=== PATIENT | female | born 1970 | race Caucasian/White ===

== ENCOUNTER 2017-03-09 10:25 | Emergency (ER) | payer MEDICAID, OTHER ==
[2017-03-09 10:40] VITALS: RESP 16
[2017-03-09 10:41] VITALS: BMI 24.7
[2017-03-09] MEDS ORDERED: Sodium Chloride 0.9% 1,000 ML IV STA (11:04)
--- NOTE | 2017-03-09 11:07 | ED PDOC ---
HPI: Abdomen Time Seen by Provider: 03/09/17 10:46 Chief Complaint (Nursing): Abdominal Pain Chief Complaint (Provider): Abdominal Pain History Per: Patient History/Exam Limitations: no limitations Onset/Duration Of Symptoms: Days Current Symptoms Are (Timing): Still Present Additional Complaint(s): 46 y/o female with a past medical history of breast cancer (4 years ago) who presents to the emergency department with a complaint of constant sharp abdominal pain, watery diarrhea (2 episodes) and chills since yesterday, 2016. Associated with greenish vomit (3 episodes) since 8am this morning. Denies radiation of abdominal pain elsewhere, nausea, blood in stool, fever, painful urination, shortness of breath, cough, or chest pain. PMD: Dr. Néstor TARIQ Past Medical History Reviewed: Historical Data, Nursing Documentation, Vital Signs Vital Signs: Last Vital Signs Temp 98.8 F 03/09/17 10:40 Pulse 79 03/09/17 10:40 Resp 16 03/09/17 10:40 BP 103/65 03/09/17 10:40 Pulse Ox 100 03/09/17 11:12 - Medical History PMH: Malignancy (breast CA 5 years ago) Other PMH: Breast Cancer (4 years ago) - Surgical History Other surgeries: Breast Surgery ([place]) - Family History Family History: States: Unknown Family Hx, Hypertension - Social History Current smoker - smoking cessation education provided: Yes Alcohol: None Drugs: Denies - Home Medications Home Medications: Ambulatory Orders Medication Instructions Recorded Amoxicillin 875 mg PO BID #20 tab 03/03/14 Azithromycin [Zithromax Z-Hussain] 250 mg PO DAILY #6 tab 03/23/14 Fluticasone Nasal [Flonase] 1 actuation NS BID #1 bottle 03/23/14 traMADol [Ultram] 50 mg PO Q8 PRN #20 tab 07/18/15 Ondansetron [Zofran Odt] 4 mg PO ASDIR PRN #20 odt 09/12/15 traMADol [Ultram] 50 mg PO TID PRN #15 tab 09/12/15 Famotidine [Pepcid] 20 mg PO BID #28 tab 03/09/17 Ondansetron [Zofran] 4 mg PO Q8H #9 tab 03/09/17 - Allergies Allergies/Adverse Reactions: Allergies Allergy/AdvReac Type Severity Reaction Status Date / Time No Known Allergies Allergy Verified 03/03/14 10:42 Review of Systems ROS Statement: Except As Marked, All Systems Reviewed And Found Negative Constitutional: Positive for: Chills. Negative for: Fever Cardiovascular: Negative for: Chest Pain Respiratory: Negative for: Cough, Shortness of Breath Gastrointestinal: Positive for: Vomiting (Green), Abdominal Pain, Diarrhea. Negative for: Nausea, Hematochezia Genitourinary Female: Negative for: Dysuria Physical Exam - Reviewed Nursing Documentation Reviewed: Yes Vital Signs Reviewed: Yes - Physical Exam Appears: Positive for: Non-toxic, No Acute Distress Head Exam: Positive for: ATRAUMATIC, NORMAL INSPECTION, NORMOCEPHALIC Skin: Positive for: Warm, Dry, Pallor Eye Exam: Positive for: Normal appearance Cardiovascular/Chest: Positive for: Regular Rate, Rhythm. Negative for: Murmur Respiratory: Positive for: Normal Breath Sounds. Negative for: Accessory Muscle Use, Respiratory Distress Gastrointestinal/Abdominal: Positive for: Soft, Tenderness (Epigastric region). Negative for: Normal Exam Back: Positive for: Normal Inspection. Negative for: L CVA Tenderness, R CVA Tenderness Extremity: Positive for: Normal ROM. Negative for: Pedal Edema Neurologic/Psych: Positive for: Alert, Oriented (x3) - Laboratory Results Result Diagrams: 03/09/17 11:30 03/09/17 11:30 Urine dip results: Negative for: Leukocyte Esterase, Blood, Nitrate - ECG O2 Sat by Pulse Oximetry: 100 (RA) Pulse Ox Interpretation: Normal - Progress Re-evaluation Time: 12:45 Condition: Re-examined, Improving,but remains with symptoms Medical Decision Making Medical Decision Making: Time: 11:03 Initial Impression: Abdominal Pain Initial Plan: --EKG --CMP --Lipase --Troponin I --Urine DIP & Preg --CBC w/ diff --Reevaluation Scribe Attestation: Documented by Adriana Rios, acting as a scribe for Melissa Pfeiffer MD. Provider Scribe Attestation: All medical record entries made by the Scribe were at my direction and personally dictated by me. I have reviewed the chart and agree that the record accurately reflects my personal performance of the history, physical exam, medical decision making, and the department course for this patient. I have also personally directed, reviewed, and agree with the discharge instructions and disposition. Disposition - Clinical Impression Clinical Impression: Abdominal discomfort - Patient ED Disposition Is Patient to be Admitted: No Doctor Will See Patient In The: Office Counseled Patient/Family Regarding: Diagnosis, Need For Followup, Rx Given - Disposition Referrals: Yefri Palm MD [Family Provider] - [facility] [Outside] Disposition: Routine/Home Disposition Time: 12:45 Condition: IMPROVED Prescriptions: Famotidine [Pepcid] 20 mg PO BID #28 tab Ondansetron [Zofran] 4 mg PO Q8H #9 tab Instructions: Abdominal Pain (ED) Forms: [facility] ([place]ian) - POA Present On Arrival: None
[2017-03-09 11:59] LABS: BASO # 0.1 K/uL (0.0-0.2); BASO % 0.7 % (0.0-2.0); EOS # 0.3 K/uL (0.0-0.7); EOS % 2.4 % (0.0-4.0); HEMATOCRIT 38.8 % (34.0-47.0); LYMPH # 1.8 K/uL (1.0-4.3); LYMPH % 14.3 % (20.0-40.0); MEAN CELL VOLUME 85.6 fl (81.0-99.0); MEAN CORPUSCULAR HEMOGLOBIN 27.5 pg (27.0-31.0); MEAN CORPUSCULAR HGB CONC 32.2 g/dL (33.0-37.0); MEAN PLATELET VOLUME 8.6 fl (7.2-11.7); MONO # 0.9 K/uL (0.0-0.8); MONO % 7.3 % (0.0-10.0); NEUT # 9.2 K/uL (1.8-7.0); NEUT % 75.3 % (50.0-75.0); NRBC % 0.1 % (0.0-0.0); RED CELL DISTRIBUTION WIDTH 17.5 % (11.5-14.5); WHITE BLOOD COUNT 12.2 K/uL (4.8-10.8)
[2017-03-09 12:02] LABS: ALB/GLOB RATIO 1.3 (1.0-2.1); ALKALINE PHOSPHATASE 54 U/L (38-126); ALT/SGPT 24 U/L (9-52); AST/SGOT 27 U/L (14-36); BILIRUBIN,TOTAL 0.6 mg/dl (0.2-1.3); BLOOD UREA NITROGEN 10 mg/dl (7-17); CALCIUM 9.4 mg/dL (8.4-10.2); CARBON DIOXIDE 25 mmol/L (22-30); CHLORIDE 104 mmol/L (98-107); GFR AFRICAN-AMERICAN > 60; GLUCOSE,RANDOM 85 mg/dL (65-105); LIPASE 77 U/L (23-300); POTASSIUM 3.7 MMOL/L (3.6-5.0); SODIUM 142 mmol/l (132-148); TOTAL PROTEIN 7.6 G/DL (6.3-8.2)
[2017-03-09 13:20] VITALS: BP 99/62; PULSE 62; TEMP 98.3; O2SAT 98
--- NOTE | 2017-03-10 11:39 | CARD ---
APPROVED REPORT EKG Measurement Heart [id number] <Conclusion> Normal sinus rhythm T wave abnormality, consider inferior ischemia T wave abnormality, consider anterolateral ischemia Abnormal ECG
== END 2017-03-09 13:18 | disposition home or self-care (01) ==
LOC: H.ER 10:25
DX: R10.9 Unspecified abdominal pain (principal); Z85.3 Personal history of malignant neoplasm of breast
CPT/HCPCS: 80053; 81025; 83690; 84484; 85025; 93005; 96361; 96374; 96375; 99284; J2405; J7040

== ENCOUNTER 2017-04-27 18:40 | Emergency (ER) | payer OTHER ==
[2017-04-27 18:40] VITALS: BMI 24.7
[2017-04-27 18:52] VITALS: PULSE 94; RESP 18; TEMP 98.1; O2SAT 100
--- NOTE | 2017-04-27 19:50 | ED PDOC ---
HPI: Female Pain Time Seen by Provider: 04/27/17 18:54 Chief Complaint (Nursing): Female Genitourinary Chief Complaint (Provider): hematurie History Per: Patient History/Exam Limitations: no limitations Onset/Duration Of Symptoms: Days (2), Intermittent Episodes Quality Of Discomfort: "Pain" Associated Symptoms: Fever, Chills, Urinary Symptoms. denies: Nausea, Vomiting , Diarrhea, Loss Of Appetite, Constipation Past Medical History Reviewed: Historical Data, Nursing Documentation, Vital Signs Vital Signs: Last Vital Signs Temp 98.1 F 04/27/17 18:49 Pulse 94 H 04/27/17 18:49 Resp 18 04/27/17 18:49 BP 104/72 04/27/17 18:49 Pulse Ox 100 04/27/17 18:49 - Medical History PMH: No Chronic Diseases, Malignancy (breast CA 5 years ago) - Family History Family History: States: Hypertension - Social History Current smoker - smoking cessation education provided: Yes Alcohol: None - Home Medications Home Medications: Ambulatory Orders Medication Instructions Recorded Amoxicillin 875 mg PO BID #20 tab 03/03/14 Azithromycin [Zithromax Z-Hussain] 250 mg PO DAILY #6 tab 03/23/14 Fluticasone Nasal [Flonase] 1 actuation NS BID #1 bottle 03/23/14 traMADol [Ultram] 50 mg PO Q8 PRN #20 tab 07/18/15 Ondansetron [Zofran Odt] 4 mg PO ASDIR PRN #20 odt 09/12/15 traMADol [Ultram] 50 mg PO TID PRN #15 tab 09/12/15 Famotidine [Pepcid] 20 mg PO BID #28 tab 03/09/17 Ondansetron [Zofran] 4 mg PO Q8H #9 tab 03/09/17 Ibuprofen [Motrin Tab] 600 mg PO Q8 PRN #30 tab 04/27/17 Nitrofurantoin Macrocrystals 1 cap PO BID #14 cap 04/27/17 [Macrobid] Phenazopyridine [Phenazopyridine 200 mg PO BID PRN #20 tab 04/27/17 HCl] - Allergies Allergies/Adverse Reactions: Allergies Allergy/AdvReac Type Severity Reaction Status Date / Time No Known Allergies Allergy Verified 03/03/14 10:42 Review of Systems ROS Statement: Except As Marked, All Systems Reviewed And Found Negative (and as per HPI) Constitutional: Positive for: Chills Gastrointestinal: Positive for: Abdominal Pain. Negative for: Nausea, Vomiting , Diarrhea Genitourinary Female: Positive for: Dysuria, Frequency, Hematuria, Pelvic Pain Musculoskeletal: Negative for: Back Pain Physical Exam - Reviewed Nursing Documentation Reviewed: Yes Vital Signs Reviewed: Yes - Physical Exam Appears: Positive for: Well, No Acute Distress Head Exam: Positive for: ATRAUMATIC, NORMOCEPHALIC Skin: Positive for: Warm, Dry Eye Exam: Positive for: EOMI, PERRL Neck: Positive for: Painless ROM, Supple Cardiovascular/Chest: Positive for: Regular Rate, Rhythm, Chest Non Tender. Negative for: Murmur Respiratory: Positive for: Normal Breath Sounds. Negative for: Respiratory Distress Gastrointestinal/Abdominal: Positive for: Soft. Negative for: Tenderness Back: Positive for: Normal Inspection. Negative for: L CVA Tenderness, R CVA Tenderness, Decreased ROM Extremity: Positive for: Normal ROM. Negative for: Deformity Lymphatic: Negative for: Adenopathy Neurologic/Psych: Positive for: Alert. Negative for: Motor/Sensory Deficits - ECG O2 Sat by Pulse Oximetry: 100 Pulse Ox Interpretation: Normal - Progress ED Course And Treament: EXAM: CT Abdomen and Pelvis Without Intravenous Contrast EXAM DATE/TIME: 04/27/2017 7:38 PM CLINICAL HISTORY: 46 years old, female; Signs and symptoms; Other: Lower abd pain hematuria; Prior surgery; Surgery date: 6+ months; Surgery type: HX rt breast ca 5 yrs ago. Rt breast tumor removal; Patient HX: HX rt breast ca 5 yrs ago. Rt breast tumor removal. Hematuia. Lower abd pain; Additional info: Hematuria pain TECHNIQUE: Axial computed tomography images of the abdomen and pelvis without intravenous contrast. All CT scans at this facility use one or more dose reduction techniques, viz.: automated exposure control; ma/kV adjustment per patient size (including targeted exams where dose is matched to indication; i.e. head); or iterative reconstruction technique. Coronal and sagittal reformatted images were created and reviewed. COMPARISON: Prior CT abdomen and pelvis of 2013-10-07 FINDINGS: LIMITATIONS: Mild streak/motion artifact. LOWER THORAX: No infiltrate seen in the lung bases. ABDOMEN: LIVER: No acute abnormality of the liver identified. GALLBLADDER AND BILE DUCTS: No CT evidence of acute cholecystitis. No evidence of significant biliary ductal dilatation. PANCREAS: No CT evidence of acute pancreatitis. SPLEEN: No acute abnormality of the spleen identified. ADRENALS: No acute abnormality of the adrenal glands identified. KIDNEYS AND URETERS:No acute abnormality of the kidneys seen. No renal stones, hydronephrosis, or hydroureter seen. STOMACH AND BOWEL: Colonic diverticulosis, with no evidence of acute diverticulitis. Retained stool noted throughout the colon. Mild gastric dilatation, with debris/retained food material throughout the lumen of the stomach. Otherwise, no significant abnormality of the bowel is identified. No evidence of bowel obstruction. APPENDIX: Appendix is seen, and is within normal limits in appearance. PELVIS: BLADDER: Bladder findings suspicious for cystitis. There is infiltration of the fat adjacent to the bladder diffusely. There is mild thickening of the bladder wall. No evidence of bladder calculi or air in the bladder.. REPRODUCTIVE: Mild uterine enlargement, which can be secondary to fibroids. No evidence of large adnexal masses. ABDOMEN and PELVIS: INTRAPERITONEAL SPACE: No evidence of free intraperitoneal air or fluid. BONES/JOINTS: No acute fractures or other acute bony abnormality noted. SOFT TISSUES: No acute abnormality of the visualized soft tissues is seen. VASCULATURE: No evidence of abdominal aortic aneurysm. No evidence of periaortic hemorrhage. LYMPH NODES: No evidence of diffuse lymphadenopathy. IMPRESSION: - Bladder findings suspicious for cystitis. Recommend clinical correlation. - Otherwise, no evidence of significant acute process on this unenhanced exam. There is no evidence of nephrolithiasis or obstructive uropathy. - See above for remaining findings. Thank you for allowing us to participate in the care of your patient. Dictated and Authenticated by: Vicki Valenzuela MD 04/27/2017 10:22 PM Eastern Time ([place] & [place]) Disposition - Clinical Impression Clinical Impression: Cystitis Counseled Patient/Family Regarding: Studies Performed, Diagnosis, Need For Followup, Rx Given - Disposition Referrals: Yefri Palm MD [Family Provider] - Disposition: Routine/Home Disposition Time: 22:00 Condition: STABLE Prescriptions: Ibuprofen [Motrin Tab] 600 mg PO Q8 PRN #30 tab PRN Reason: Pain, Moderate (4-7) Nitrofurantoin Macrocrystals [Macrobid] 1 cap PO BID #14 cap Phenazopyridine [Phenazopyridine HCl] 200 mg PO BID PRN #20 tab PRN Reason: pain with urination Instructions: Urinary Tract Infection in Women (ED), Acute Hematuria (ED)
[2017-04-27 19:58] LABS: RBC URINE 432 /hpf (0-3); URINE BILIRUBIN NEGATIVE (NEGATIVE); URINE BLOOD LARGE (NEGATIVE); URINE COLOR YELLOW (YELLOW); URINE GLUCOSE (UA) NEG (Normal); URINE KETONE NEGATIVE (NEGATIVE); URINE LEUKOCYTE ESTERASE MOD Leu/uL (Negative); URINE PROTEIN 100 mg/dL (NEGATIVE); WBC URINE 199 /hpf (0-5)
--- NOTE | 2017-04-27 22:22 | CT ---
EXAM: CT Abdomen and Pelvis Without Intravenous Contrast EXAM DATE/TIME: 04/27/2017 7:38 PM CLINICAL HISTORY: 46 years old, female; Signs and symptoms; Other: Lower abd pain hematuria; Prior surgery; Surgery date: 6+ months; Surgery type: HX rt breast ca 5 yrs ago. Rt breast tumor removal; Patient HX: HX rt breast ca 5 yrs ago. Rt breast tumor removal. Hematuia. Lower abd pain; Additional info: Hematuria pain TECHNIQUE: Axial computed tomography images of the abdomen and pelvis without intravenous contrast. All CT scans at this facility use one or more dose reduction techniques, viz.: automated exposure control; ma/kV adjustment per patient size (including targeted exams where dose is matched to indication; i.e. head); or iterative reconstruction technique. Coronal and sagittal reformatted images were created and reviewed. COMPARISON: Prior CT abdomen and pelvis of 2013-10-07 FINDINGS: LIMITATIONS: Mild streak/motion artifact. LOWER THORAX: No infiltrate seen in the lung bases. ABDOMEN: LIVER: No acute abnormality of the liver identified. GALLBLADDER AND BILE DUCTS: No CT evidence of acute cholecystitis. No evidence of significant biliary ductal dilatation. PANCREAS: No CT evidence of acute pancreatitis. SPLEEN: No acute abnormality of the spleen identified. ADRENALS: No acute abnormality of the adrenal glands identified. KIDNEYS AND URETERS:No acute abnormality of the kidneys seen. No renal stones, hydronephrosis, or hydroureter seen. STOMACH AND BOWEL: Colonic diverticulosis, with no evidence of acute diverticulitis. Retained stool noted throughout the colon. Mild gastric dilatation, with debris/retained food material throughout the lumen of the stomach. Otherwise, no significant abnormality of the bowel is identified. No evidence of bowel obstruction. APPENDIX: Appendix is seen, and is within normal limits in appearance. PELVIS: BLADDER: Bladder findings suspicious for cystitis. There is infiltration of the fat adjacent to the bladder diffusely. There is mild thickening of the bladder wall. No evidence of bladder calculi or air in the bladder.. REPRODUCTIVE: Mild uterine enlargement, which can be secondary to fibroids. No evidence of large adnexal masses. ABDOMEN and PELVIS: INTRAPERITONEAL SPACE: No evidence of free intraperitoneal air or fluid. BONES/JOINTS: No acute fractures or other acute bony abnormality noted. SOFT TISSUES: No acute abnormality of the visualized soft tissues is seen. VASCULATURE: No evidence of abdominal aortic aneurysm. No evidence of periaortic hemorrhage. LYMPH NODES: No evidence of diffuse lymphadenopathy. IMPRESSION: - Bladder findings suspicious for cystitis. Recommend clinical correlation. - Otherwise, no evidence of significant acute process on this unenhanced exam. There is no evidence of nephrolithiasis or obstructive uropathy. - See above for remaining findings.
[2017-04-27 23:00] VITALS: BP 108/74
== END 2017-04-27 23:01 | disposition home or self-care (01) ==
LOC: H.ER 18:40
DX: N30.91 Cystitis, unspecified with hematuria (principal); Z85.3 Personal history of malignant neoplasm of breast
CPT/HCPCS: 74176; 81003; 81025; 87086; 96372; 99282; J1885

== ENCOUNTER 2017-07-24 23:57 | Inpatient (IN) | payer OTHER ==
[2017-07-24 23:57] VITALS: BMI 24.7
--- NOTE | 2017-07-25 00:20 | ED PDOC ---
HPI:STROKE - Time Time: 00:04 - Historian Historian: Patient, EMS - Chief Complaint Chief Complaint: Arm weakness (right), Leg weakness (right) - Onset Date: 07/24/17 Time: 23:20 - Timing Timing: Currently Symptomatic - Location Location: None Locate right:: Upper extremity, Lower extremity - Severity of pain Maximum severity:: None - Notes: Notes:: 46 year old female brought in by EMS presents to ED with complaints of headache and extremity weakness and has a past medical history of breast cancer (not active). Notes headache x2 hours and RLE weakness more profound than RUE. (-) nausea, vomiting, vision changes, chest pain, or SOB. PCP: Yefri Palm NIHSS Stroke Scale - Date/Time Evaluation Performed Date Performed: 07/25/17 Time Performed: 00:04 When Was NIHSS Performed: Code Stroke - How Severe is the Stroke Level of Consciousness: 0=Alert LOC to Questions: 0=Both comments correct LOC to commands: 0=Obeys both correctly Best Gaze: 0=Normal Visual: 0=No visual loss Facial: 0=Normal Motor Arm - Left: 0=No drift Motor Arm - Right: 3=No effort against gravity (falls immediately) Motor Leg - Left: 0=No drift Motor Leg - Right: 4=No movement Limb Ataxia: 1=Present Upper or Lower Sensory: 0=Normal Best Language: 0=No aphasia Dysarthia: 0=Normal articulation Extinction & Inattention (Neglect): 0=Normal, no object Score: 8 rTPA Inclusion/Exclusion - Refusal of Treatment Patient Refused Treatment: No - Inclusion Criteria for Altepase Patient is 18 years or Older: Yes The Clinical Diagnosis of Ischemic Stroke That is Causing a Potentially Disabling Neurological Deficit: No Time of Onset is Well Established to be Less Than 270 Minute Before Treatment Would Begin: Yes Risk/Benefit Discussed With Patient/Family Member Present: No Past Medical History Reviewed: Historical Data, Nursing Documentation, Vital Signs Vital Signs: Last Vital Signs Temp 98.1 F 07/25/17 00:00 Pulse 97 H 07/25/17 00:00 Resp 17 07/25/17 00:00 BP 127/75 07/25/17 00:00 Pulse Ox 99 07/25/17 00:00 - Medical History PMH: Malignancy (breast cancer 5 years ago, not active currently) - Family History Family History: States: Hypertension - Living Arrangements Living Arrangements: With Family - Home Medications Home Medications: Ambulatory Orders Medication Instructions Recorded No Known Home Med 07/25/17 - Allergies Allergies/Adverse Reactions: Allergies Allergy/AdvReac Type Severity Reaction Status Date / Time No Known Allergies Allergy Verified 07/25/17 00:03 Review of Systems ROS Statement: Except As Marked, All Systems Reviewed And Found Negative Eyes: Negative for: Vision Change Cardiovascular: Negative for: Chest Pain Respiratory: Negative for: Shortness of Breath Gastrointestinal: Negative for: Nausea, Vomiting Neurological: Positive for: Weakness (right upper and lower extremity weakness. Right lower extremity weakness more profound), Headache Physical Exam - Reviewed Nursing Documentation Reviewed: Yes Vital Signs Reviewed: Yes - Physical Exam Appears: Positive for: No Acute Distress (comfortable, maintaining airway) Head Exam: Positive for: ATRAUMATIC, NORMOCEPHALIC Skin: Positive for: Normal Color, Warm, Dry Eye Exam: Positive for: Normal appearance, EOMI, PERRL ENT: Positive for: Normal ENT Inspection Neck: Positive for: Normal, Painless ROM, Supple Cardiovascular/Chest: Positive for: Regular Rate, Rhythm. Negative for: Murmur Respiratory: Positive for: Normal Breath Sounds. Negative for: Respiratory Distress Gastrointestinal/Abdominal: Positive for: Normal Exam, Soft. Negative for: Tenderness Back: Positive for: Normal Inspection Extremity: Negative for: Deformity Neurologic/Psych: Positive for: Alert, office equipment technician II-XII (intact), Oriented, Motor/ Sensory Deficits (2/5 strength to RUE, 0/5 strength to RLE. Sensation intact. No field cut or visual deficits) - Laboratory Results Result Diagrams: 07/25/17 01:13 07/25/17 01:13 - ECG O2 Sat by Pulse Oximetry: 99 (RA) Pulse Ox Interpretation: Normal - Core Measure Core Measure Indicators: Code Stroke - Critical Care Total Time (In Min): 60 Medical Decision Making Medical Decision Makin Code Stroke paged overhead. Initial impression: cerebrovascular accident v intracerebral hemorrhage Initial plan: * T&S * CT HEAD * EKG * Labs * Hemoglobin A1V * Lipid panel * Trop I * PTT/PT * CXR 0010 Intracere[address] hemorrhage seen on CT HEAD. Possible metastasis from breast cancer with hemorrhagic conversion. Patient stable at this time. Blood pressure normal. 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 [address] Bonner, who states no acute interventional care at this time. Recommends Decadron and MRI. Will see patient as a consult. * Admit inpatient ICU to Dr. Negron [address] Negron, who accepts patient to ICU. * MRI BRAIN w CONTRAST 0112 CTFINDINGS: Brain: Within the superior left frontal lobe, there is a hyperdense acute hematoma measuring approximately 3.4 x 2.2 cm, with surrounding edema. Within the right temporoparietal region, there is a 1.6 x 1.0 cm hyperdense mass. It is indeterminate if this is intra-or extra- axial. Due to the increase in density, a hemorrhagic component is considered. Midline shift: There is minimal midline shift to the right of approximately 2 mm. Ventricles: No ventriculomegaly. Bones/joints: The calvarium demonstrates no evidence for a depressed fracture. Soft tissues: No acute abnormality. Sinuses: Mucous retention cysts or polyps are identified within the left maxillary sinus and left sphenoid sinus. Mastoid air cells: No mastoid effusion. IMPRESSION: 1. Within the superior left frontal lobe, there is a hyperdense acute hematoma measuring approximately 3.4 x 2.2 cm, with surrounding edema. A follow-up CT in 12-24 hours is recommended. 2. Within the right temporoparietal region, there is a 1.6 x 1.0 cm hyperdense mass. It is indeterminate if this is intra-or extra-axial. Due to the increase in density, a hemorrhagic component is considered. This can be further evaluated with an MRI with/without contrast. 3. There is minimal midline shift to the right of approximately 2 mm. 4. Paranasal sinus disease is noted above. Addendum created by Jaiden Arthur MD on 07/25/2017 1:18 AM Eastern Time ([place] & [place]) THIS REPORT CONTAINS FINDINGS THAT MAY BE CRITICAL TO PATIENT CARE. The findings were verbally communicated via telephone conference with Fotser Chaudhary at 1:18 AM EST on 07/25/2017. The findings were acknowledged and understood. Scribe Attestation: Documented by Asuncion Cain acting as a scribe for Foster Chaudhary MD. Scribe Attestation: All medical record entries made by the Scribe were at my direction and personally dictated by me. I have reviewed the chart and agree that the record accurately reflects my personal performance of the history, physical exam, medical decision making, and the department course for this patient. I have also personally directed, reviewed, and agree with the discharge instructions and disposition. Disposition - Clinical Impression Clinical Impression: Intracranial hemorrhage - Patient ED Disposition Is Patient to be Admitted: Yes - Disposition Disposition Time: 00:30 Condition: CRITICAL - POA Core Measure Indicators: Code Stroke
[2017-07-25] MEDS ORDERED: Dexamethasone 10 MG in Sodium Chloride 0.9% 50 ML IV ONE (00:29)
--- NOTE | 2017-07-25 00:52 | CP.PCM.HP ---
History of Present Illness - History of Present Illness History of Present Illness: PMD: Yefri Palm Chief Complaint: Left side weakness The patient was seen and examined in theED with her family present HPI: 46 years old female with hx of Breast cancer s/p Chemotherapy and radiotherapy, comes with a 2 hours hx of headache associated with weakness of the right upper and lower extremities. No dizziness, no fever, SOB, diaphoresis , no chest Pain. In the Ed the Speech was clear and the patient had good mentation. Code Stroke called in the ED.NIHSS was 8 in the ED. PMH: Breast Cancer Dx 7years ago and treated with Chemotherapy and Radiotherapy , Cholelithiasis PSH: Right lumpectomy and and right axillary lymph nodes resection, SH: Light smoker; No illegal drug use; No ETOH use; Live with family FH: States: No Family hx Allergies: NKDA Medications: Reviewed Present on Admission - Present on Admission Any Indicators Present on Admission: No History of DVT/PE: No History of Uncontrolled Diabetes: No Urinary Catheter: No Decubitus Ulcer Present: No Review of Systems - Constitutional Constitutional: Headache, Weakness. absent: Fatigue, Fever, Frequent Falls, Lethargy - EENT Eyes: Requires Corrective Lenses. absent: Decreased Night Vision, Diplopia, Photophobia, Sees Flashes Ears: absent: Decreased Hearing, Ear Discharge, Ear Pain, Tinnitus Nose/Mouth/Throat: absent: Epistaxis, Nasal Congestion, Nasal Obstruction, Sinus Pain, Sinus Pressure - Cardiovascular Cardiovascular: absent: Chest Pain, Dyspnea, Edema - Respiratory Respiratory: absent: Cough, Dyspnea, Wheezing, Stridor - Gastrointestinal Gastrointestinal: absent: Abdominal Pain, Constipation, Diarrhea, Nausea, Vomiting - Genitourinary Genitourinary: absent: Dysuria, Flank Pain, Hematuria, Urinary Frequency - Musculoskeletal Musculoskeletal: absent: Arthralgias, Back Pain, Myalgias, Neck Pain - Integumentary Integumentary: absent: Pruritus, Rash, Skin Ulcer, Sores, Striae, Swelling - Neurological Neurological: Focal Weakness, Headaches, Weakness. absent: Confusion - Psychiatric Psychiatric: absent: Anxiety, Depression, Panic Attacks - Endocrine Endocrine: absent: Palpitations, Polydipsia, Polyphagia, Polyuria - Hematologic/Lymphatic Hematologic: absent: Easy Bleeding, Easy Bruising Past Patient History - Past Medical History & Family History Past Medical History?: Yes - Past Social History Smoking Status: Light Smoker < 10 Cigarettes Daily Chewing Tobacco Use: No Cigar Use: No Alcohol: None Drugs: Denies Home Situation {Lives}: With Family - CARDIAC Hx Cardiac Disorders: No - NEUROLOGICAL Hx Neurological Disorder: No - HEENT Hx HEENT Problems: No - RENAL Hx Chronic Kidney Disease: No - HEMATOLOGICAL/ONCOLOGICAL Hx Cancer: Yes (right breast) - MUSCULOSKELETAL/RHEUMATOLOGICAL Hx Musculoskeletal Disorders: No - GASTROINTESTINAL Hx Gastrointestinal Disorders: No - GENITOURINARY/GYNECOLOGICAL Hx Genitourinary Disorders: No Other/Comment: RIGHT BREAST CANCER - PSYCHIATRIC Hx Psychophysiologic Disorder: No Hx Substance Use: No - SURGICAL HISTORY Hx Surgeries: Yes Hx Mastectomy: Yes (right) - ANESTHESIA Hx Anesthesia: Yes Hx Anesthesia Reactions: No Hx Malignant Hyperthermia: No Meds Allergies/Adverse Reactions: Allergies Allergy/AdvReac Type Severity Reaction Status Date / Time No Known Allergies Allergy Verified 07/25/17 00:03 Physical Exam - Constitutional Appears: No Acute Distress - Head Exam Head Exam: ATRAUMATIC, NORMAL INSPECTION, NORMOCEPHALIC - Eye Exam Eye Exam: EOMI, Normal appearance Pupil Exam: NORMAL ACCOMODATION, PERRL - ENT Exam ENT Exam: Mucous Membranes Moist, Normal Exam, Normal External Ear Exam, Normal Oropharynx - Neck Exam Neck exam: Positive for: Full Rom, Normal Inspection. Negative for: Lymphadenopathy, Tenderness - Respiratory Exam Respiratory Exam: Clear to Auscultation Bilateral. absent: Rales, Rhonchi, Wheezes - Cardiovascular Exam Cardiovascular Exam: REGULAR RHYTHM, RRR, +S1, +S2. absent: Gallop, JVD - GI/Abdominal Exam GI & Abdominal Exam: Normal Bowel Sounds, Soft. absent: Mass, Organomegaly, Tenderness - Rectal Exam Rectal Exam: Deferred - Extremities Exam Extremities exam: Positive for: normal inspection. Negative for: calf tenderness, joint swelling, pedal edema - Back Exam Back exam: NORMAL INSPECTION. absent: CVA tenderness (L), CVA tenderness (R) - Neurological Exam Additional comments: Awake alert, oriented, clear speech, no facial droop,Motor strength at the left upper extremity 5/5 and at the right upper extremity 3/5/ Motor strength at the right lower extremity 0/5 and the left lower extremity 5/5 - Psychiatric Exam Psychiatric exam: Normal Affect, Normal Mood - Skin Skin Exam: Dry, Intact, Normal Color, Warm Results - Vital Signs Recent Vital Signs: Last Vital Signs Temp 98.1 F 07/25/17 00:00 Pulse 97 H 07/25/17 00:00 Resp 17 07/25/17 00:00 BP 127/75 07/25/17 00:00 Pulse Ox 99 07/25/17 00:40 - Labs Result Diagrams: 07/25/17 01:13 07/25/17 01:13 - Imaging and Cardiology CT scan - head Status: Image reviewed by me, Report reviewed by me Additional comment: EXAM: CT Head Without Intravenous Contrast EXAM DATE/TIME: 07/25/2017 12:07 AM FINDINGS: Brain: Within the superior left frontal lobe, there is a hyperdense acute hematoma measuring approximately 3.4 x 2.2 cm, with surrounding edema. Within the right temporoparietal region, there is a 1.6 x 1.0 cm hyperdense mass. It is indeterminate if this is intra-or extra- axial. Due to the increase in density, a hemorrhagic component is considered. Midline shift: There is minimal midline shift to the right of approximately 2 mm. Ventricles: No ventriculomegaly. Bones/joints: The calvarium demonstrates no evidence for a depressed fracture. Soft tissues: No acute abnormality. Sinuses: Mucous retention cysts or polyps are identified within the left maxillary sinus and left sphenoid sinus. Mastoid air cells: No mastoid effusion. IMPRESSION: 1. Within the superior left frontal lobe, there is a hyperdense acute hematoma measuring approximately 3.4 x 2.2 cm, with surrounding edema. A follow-up CT in 12-24 hours is recommended. 2. Within the right temporoparietal region, there is a 1.6 x 1.0 cm hyperdense mass. It is indeterminate if this is intra-or extra-axial. Due to the increase in density, a hemorrhagic component is considered. This can be further evaluated with an MRI with/without contrast. 3. There is minimal midline shift to the right of approximately 2 mm. 4. Paranasal sinus disease is noted above. Assessment & Plan - Assessment and Plan (Free Text) Assessment: #. Acute CVA with Intracraneal Hemorrhage #. Hypokalemia #. Hypoglycemia #. Leukocytosis #. hx Of Breast Ca Plan: 46 years old female with hx of Breast cancer s/p Chemotherapy and radiotherapy, comes with a 2 hours hx of headache associated with weakness of the right upper and lower extremities. Code Stroke called in the ED.NIHSS was 8 in the ED. #. Acute CVA with Intracraneal Hemorrhage - Consult Dr Bedoya neuro surgeon - Consult Dr Sena neurologist - Neuro checks - Repeat CT head without contrast in 12 hours - Mannitol - Dexamethasone #. Hypokalemia - replace in IV fluids with KCL - Follow electrolytes #. Hypoglycemia - IV Fluid with Dextrose - follow Blood glucose #. Leukocytosis rective - follow WBC #. hx Of Breast Ca treated -CT head with contrast to evaluate for neoplasm #. Stress ulcer Prophylaxis with Pepcid #. DVT Prophylaxis with SCD #> Code Status: Full - Date & Time Date: 07/25/17 Time: 00:52
[2017-07-25 01:17] LABS: BASO # 0.2 K/uL (0.0-0.2); BASO % 1.2 % (0.0-2.0); EOS % 0.1 % (0.0-4.0); HEMOGLOBIN 11.3 g/dL (12.0-16.0); LYMPH % 8.3 % (20.0-40.0); MEAN CELL VOLUME 82.4 fl (81.0-99.0); MEAN CORPUSCULAR HGB CONC 31.5 g/dL (33.0-37.0); MEAN PLATELET VOLUME 8.7 fl (7.2-11.7); MONO # 0.6 K/uL (0.0-0.8); MONO % 4.8 % (0.0-10.0); NEUT # 10.8 K/uL (1.8-7.0); NEUT % 85.6 % (50.0-75.0); PLATELET COUNT 285 K/uL (130-400); RBC 4.37 Mil/uL (3.80-5.20); RED CELL DISTRIBUTION WIDTH 18.7 % (11.5-14.5); WHITE BLOOD COUNT 12.6 K/uL (4.8-10.8)
[2017-07-25 01:27] LABS: ALB/GLOB RATIO 1.2 (1.0-2.1); ALBUMIN 4.4 g/dL (3.5-5.0); ALT/SGPT 22 U/L (9-52); AST/SGOT 22 U/L (14-36); BLOOD UREA NITROGEN 14 mg/dl (7-17); CALCIUM 9.7 mg/dL (8.4-10.2); GFR AFRICAN-AMERICAN > 60; GFR NON-AFRICAN AMERICAN > 60; HDL CHOLESTEROL 59 MG/DL (30-70)
[2017-07-25 01:30] LABS: INR 1.1 (0.9-1.2); PROTHROMBIN TIME 11.7 Seconds (9.8-13.1)
[2017-07-25 01:38] LABS: LDL CHOLESTEROL 104 mg/dL (0-129)
[2017-07-25] MEDS ORDERED: Sodium Chloride 0.9% 50 ML IV ONE (02:44)
[2017-07-25] MEDS ORDERED: Iodixanol 320 MG/ML 100 ML BOTTLE IV ONE (02:45)
[2017-07-25 03:42] LABS: EOSINOPHIL 1 % (0-7); LYMPHOCYTE 8 % (20-50); MONOCYTE 1 % (0-10); NEUTROPHIL 90 % (42-75); PLATELET ESTIMATE NORMAL (NORMAL); TOTAL CELLS COUNTED 100
[2017-07-25 03:43] LABS: ANISOCYTOSIS SLIGHT; HYPOCHROMIC SLIGHT; OVALOCYTES SLIGHT
[2017-07-25 03:44] LABS: ACANTHOCYTES SLIGHT
[2017-07-25] MEDS ORDERED: Potassium Chl 40 mEq in D5-1/2 1,000 ML IV SCH (04:00)
[2017-07-25] MEDS ORDERED: Potassium Chloride 20 mEq ER Tab PO ONE (05:11)
[2017-07-25] MEDS: Mannitol 12.5 gm/50 ml Inj IV SCH ×3 (05:35→19:54)
[2017-07-25 07:53] LABS: BLOOD UREA NITROGEN 11 mg/dl (7-17); CALCIUM 9.2 mg/dL (8.4-10.2); GFR AFRICAN-AMERICAN > 60; GFR NON-AFRICAN AMERICAN > 60
[2017-07-25] MEDS ORDERED: Dexamethasone 10 MG in Dextrose 5% In Water 50 ML IV SCH (09:00)
--- NOTE | 2017-07-25 09:32 | CT ---
PROCEDURE: CT HEAD WITHOUT CONTRAST. HISTORY: R sided weakness since 10PM. History of right breast cancer 5 years ago COMPARISON: None available. TECHNIQUE: Axial computed tomography images were obtained through the head/brain without intravenous contrast. Radiation dose: Total exam DLP = 1058.04 mGy-cm. This CT exam was performed using one or more of the following dose reduction techniques: Automated exposure control, adjustment of the mA and/or kV according to patient size, and/or use of iterative reconstruction technique. FINDINGS: HEMORRHAGE: There is parenchymal acute hemorrhage versus hemorrhagic mass at the left superior parasagittal frontal lobe measures 3.7 centimeter in the largest AP diameter 2.3 centimeter in the largest transverse diameter. There is surrounding edema noted. BRAIN: There is a slightly high attenuation mass at the peripheral right parietal lobe versus less likely extra-axial mass measures 1.9 x 1.1 centimeter. The above-mentioned the parenchymal hemorrhage or hemorrhagic mass in the left frontal lobe and associated edema resulting in mass effect on the adjacent structure and 2 millimeter [id number] midline shift at the frontal region. VENTRICLES: Unremarkable. No hydrocephalus. CALVARIUM: Unremarkable. PARANASAL SINUSES: No significant inflammatory changes. MASTOID AIR CELLS: Unremarkable as visualized. No inflammatory changes. OTHER FINDINGS: None. IMPRESSION: Acute parenchymal hematoma versus hemorrhagic mass at the left superior frontal lobe adjacent to the midline noted. 1.7 x 1 centimeter hyperdense mass lesion at the peripheral right temporal parietal region. Given the patient's history of breast cancer the possibility of brain metastasis should be considered. Further assessment by enhanced CT or MRI is recommended. 2 millimeter [id number]-rr-[id number] midline shift seen at the frontal region. Preliminary report was submitted by [facility].
[2017-07-25 09:45] LABS: BASO # 0.1 K/uL (0.0-0.2); EOS % 0.1 % (0.0-4.0); HEMOGLOBIN 11.3 g/dL (12.0-16.0); LYMPH # 0.7 K/uL (1.0-4.3); MEAN CELL VOLUME 82.3 fl (81.0-99.0); MEAN CORPUSCULAR HEMOGLOBIN 25.8 pg (27.0-31.0); MEAN CORPUSCULAR HGB CONC 31.4 g/dL (33.0-37.0); MEAN PLATELET VOLUME 8.2 fl (7.2-11.7); MONO # 0.1 K/uL (0.0-0.8); MONO % 1.3 % (0.0-10.0); NEUT # 5.9 K/uL (1.8-7.0); NEUT % 87.6 % (50.0-75.0); NRBC % 0.1 % (0.0-0.0); RBC 4.38 Mil/uL (3.80-5.20); RED CELL DISTRIBUTION WIDTH 18.5 % (11.5-14.5); WHITE BLOOD COUNT 6.7 K/uL (4.8-10.8)
--- NOTE | 2017-07-25 10:48 | RAD ---
HISTORY: RLE weakness COMPARISON: Chest radiograph dated 11/04/2010 FINDINGS: LUNGS: No active pulmonary disease. PLEURA: No significant pleural effusion identified, no pneumothorax apparent. CARDIOVASCULAR: Normal. OSSEOUS STRUCTURES: Unchanged. VISUALIZED UPPER ABDOMEN: Normal. OTHER FINDINGS: Left internal jugular access chest port, unchanged. IMPRESSION: No active disease.
[2017-07-25] MEDS ORDERED: Gadodiamide 287 MG/ML VIAL (15ML) IV ONE (11:18)
--- NOTE | 2017-07-25 11:28 | CARD ---
APPROVED REPORT EKG Measurement Heart [id number] [place] [id number] <Conclusion> Normal sinus rhythm with sinus arrhythmia Nonspecific T wave abnormality Prolonged QT Abnormal ECG
--- NOTE | 2017-07-25 11:28 | CARD ---
APPROVED REPORT EKG Measurement Heart [id number] DC 150P71 [id number] <Conclusion> Normal sinus rhythm Nonspecific T wave abnormality Prolonged QT Abnormal ECG
--- NOTE | 2017-07-25 11:30 | MRI ---
APPROVED REPORT EKG Measurement Heart [id number] [place] 158P68 [id number] <Conclusion> Normal sinus rhythm Prolonged QT Abnormal ECG
--- NOTE | 2017-07-25 12:57 | CT ---
PROCEDURE: CT HEAD WITH CONTRAST HISTORY: intracraneal bleed COMPARISON: None available. TECHNIQUE: Axial computed tomography images were obtained through the head/brain with intravenous contrast. Contrast dose: 90 cc of Visipaque 3 2 Radiation dose: Total exam DLP = 851.8 mGy-cm. This CT exam was performed using one or more of the following dose reduction techniques: Automated exposure control, adjustment of the mA and/or kV according to patient size, and/or use of iterative reconstruction technique. FINDINGS: HEMORRHAGE: Again seen is parenchymal hemorrhage at the left parasagittal superior frontal lobe. The possibility of underlying hemorrhagic mass cannot be totally excluded in this exam. Mild mass effect and murc-ho-dphoe 2 millimeter shift at the frontal region is again noted. BRAIN: There is enhancing mass lesion at the peripheral right posterior frontal temporal lobe measures 15.5 millimeter in the longitudinal diameter and 13 millimeter in the transverse diameter highly suspicious for malignant neoplasm such as metastasis. No atrophy or chronic microvascular ischemic changes. VENTRICLES: Unremarkable. No hydrocephalus. CALVARIUM: Unremarkable. PARANASAL SINUSES: Unremarkable as visualized. No significant inflammatory changes. MASTOID AIR CELLS: Unremarkable as visualized. No mastoid effusion. OTHER FINDINGS: None. IMPRESSION: Re- demonstration of focal parenchymal hemorrhage at the left frontal lobe. The possibility of underlying hemorrhagic mass lesion again should be considered. Enhancing mass lesion at the peripheral right frontal temporal lobe suspicious for malignant neoplasm likely metastasis. No other enhancing mass lesion in the brain noted. Further assessment by MRI of the brain is suggested.
--- NOTE | 2017-07-25 14:50 | MRI ---
PROCEDURE: MRI BRAIN WITH AND WITHOUT CONTRAST HISTORY: icb COMPARISON: Unenhanced head CT 07/25/2017 follow-up by enhance head CT also performed 07/25/2017. TECHNIQUE: Multiplanar, multisequence MR images of the brain were obtained with and without intravenous contrast enhancement. FINDINGS: HEMORRHAGE: Within the left frontal vertex medially is again appreciated a moderate-sized intraparenchymal hemorrhage measuring 2.3 x 3.7 x 2.8 cm (transverse by anteroposterior by superoinferior dimensions) with approximate volume of 12.4 cc. Local mass effect is appreciated effacing the sulci at the left frontal vertex with the ventricular system remaining normal volume overall including the left lateral ventricle. There is no subfalcine herniation appreciable at this time and the basilar cisterns are widely patent. DWI: No evidence of an acute or early subacute infarction. BRAIN PARENCHYMA: Further, a small enhancing lesion is appreciated which appears dural based at the right temporal parietal junction posteriorly, measuring 1.6 x 1.8 x 1.4 cm. No local reactive changes are appreciated and there is no signal dephasing appreciated on the gradient echo axial series. Trace dephasing is appreciated in the echo planar series, borderline in the T2 axial series. Trace CSF is felt to be peripheral to this lesion and is likely reflective of a benign meningioma. Because no definitive dural enhancement is appreciable, and oligodendroglioma is difficult to completely exclude and follow-up contrast MRI is advised in 3-4 months. If there is prior brain imaging at perform this patient in the past, there is prior brain imaging which can be retrieved, then comparison may preclude the need for follow-up MRI. The remainder the brain parenchyma appears unremarkable. ENHANCEMENT: As above. VENTRICLES: Unremarkable. No hydrocephalus. CRANIUM: Unremarkable. ORBITS: Grossly unremarkable. PARANASAL SINUSES/MASTOIDS: Clear VASCULAR SYSTEM: Skull base flow voids intact. OTHER FINDINGS: None . IMPRESSION: 1. A moderate left frontal intraparenchymal hemorrhage is appreciated near the vertex measuring local mass effect without some fall seen or basilar herniation identified. Please see measurements above. Follow-up CT is advised. 2. 1.8 cm enhancing lesion is seen at the right temporoparietal junction posteriorly suspicious for a benign meningioma. Though it may be extra-axial, is difficult to completely exclude intraparenchymal lesion such is in an oligodendroglioma as discussed above the lack of meningeal enhancement. Follow-up MRI is advised in 3-4 months with a without contrast for further vigilance. If prior brain imaging is available and can be retrieved to demonstrate stability of this lesion, follow-up brain MRI may be precluded.
[2017-07-25] MEDS ORDERED: DiphenhydrAMINE 50 mg/ml Inj IVP STA (14:53)
[2017-07-25] MEDS ORDERED: methylPREDNISolone 125 MG in Sodium Chloride 0.9% 50 ML IVPB ONE (14:54)
--- NOTE | 2017-07-25 15:21 | CP.PCM.CON ---
History of Present Illness - History of Present Illness History of Present Illness: dictated rec f/u MRI in 2-3 weeks to evaluate poss underlying tumor Past Patient History - Past Medical History & Family History Past Medical History?: Yes - Past Social History Smoking Status: Light Smoker < 10 Cigarettes Daily Chewing Tobacco Use: No Cigar Use: No Alcohol: None Drugs: Denies Home Situation {Lives}: With Family - CARDIAC Hx Hypertension: Yes - PULMONARY Hx Respiratory Disorders: No - NEUROLOGICAL Hx Neurological Disorder: No - HEENT Hx HEENT Problems: No - RENAL Hx Chronic Kidney Disease: No - ENDOCRINE/METABOLIC Hx Endocrine Disorders: No - HEMATOLOGICAL/ONCOLOGICAL Hx Cancer: Yes (right breast) - INTEGUMENTARY Hx Dermatological Problems: No - MUSCULOSKELETAL/RHEUMATOLOGICAL Hx Musculoskeletal Disorders: No - GASTROINTESTINAL Hx Gastrointestinal Disorders: No - GENITOURINARY/GYNECOLOGICAL Hx Genitourinary Disorders: No Other/Comment: RIGHT BREAST CANCER - PSYCHIATRIC Hx Psychophysiologic Disorder: No Hx Substance Use: No - SURGICAL HISTORY Hx Surgeries: Yes Hx Mastectomy: Yes (right) - ANESTHESIA Hx Anesthesia: Yes Hx Anesthesia Reactions: No Hx Malignant Hyperthermia: No Meds Allergies/Adverse Reactions: Allergies Allergy/AdvReac Type Severity Reaction Status Date / Time No Known Allergies Allergy Verified 07/25/17 00:03 - Medications Medications: Current Medications Dexamethasone (Decadron Inj) 10 mg IVP Q8 [facility] Last Admin: 07/25/17 09:18 Dose: 10 mg Potassium Chloride/Dextrose/Sod Cl (Potassium Chl 40 Meq In D5-1/2ns) 1,000 mls @ 80 mls/hr IV .[id number] [facility] Stop: 07/26/17 03:59 Last Admin: 07/25/17 04:30 Dose: 80 mls/hr Mannitol (Mannitol) 25 gm IV Q8H [facility] Last Admin: 07/25/17 13:33 Dose: 25 gm Morphine Sulfate (Morphine) 2 mg IVP Q4 PRN PRN Reason: Pain, moderate (4-7) Last Admin: 07/25/17 09:15 Dose: 2 mg Nitroglycerin (Nitrostat Sl Tab) 0.4 mg SL Q5M PRN PRN Reason: CHEST, ANGINAL DISCOMFORT Last Admin: 07/25/17 08:53 Dose: 0.4 mg Results - Vital Signs Recent Vital Signs: Last Vital Signs Temp 98.5 F 07/25/17 12:00 Pulse 78 07/25/17 08:00 Resp 18 07/25/17 08:00 BP 120/78 07/25/17 08:00 Pulse Ox 100 07/25/17 08:00 - Labs Result Diagrams: 07/25/17 09:30 07/25/17 06:30 Labs: Laboratory Results - last 24 hr 07/25/17 07/25/17 07/25/17 01:13 01:13 01:13 WBC 12.6 H RBC 4.37 Hgb 11.3 L Hct 36.0 MCV 82.4 D MCH 26.0 L MCHC 31.5 L RDW 18.7 H Plt Count 285 MPV 8.7 Neut % (Auto) 85.6 H Lymph % (Auto) 8.3 L [place] % (Auto) 4.8 Eos % (Auto) 0.1 Baso % (Auto) 1.2 Neut # (Auto) 10.8 H Lymph # (Auto) 1.0 [place] # (Auto) 0.6 Eos # (Auto) 0.0 Baso # (Auto) 0.2 Neutrophils % (Manual) 90 H Lymphocytes % (Manual) 8 L Monocytes % (Manual) 1 Eosinophils % (Manual) 1 Platelet Estimate Normal Hypochromasia (manual) Slight Anisocytosis (manual) Slight Ovalocytes Slight Acanthocytes (Spur) Slight PT INR APTT Sodium 143 Potassium 3.3 L Chloride 105 Carbon Dioxide 25 Anion Gap 16 BUN 14 Creatinine 0.8 Est GFR ( Amer) > 60 Est GFR (Non-Af Amer) > 60 Random Glucose 61 L Hemoglobin A1c 5.7 Calcium 9.7 Total Bilirubin 0.4 AST 22 ALT 22 Alkaline Phosphatase 48 Troponin I < 0.0120 Total Protein 7.9 Albumin 4.4 Globulin 3.5 Albumin/Globulin Ratio 1.2 Triglycerides 78 Cholesterol 192 LDL Cholesterol Direct 104 HDL Cholesterol 59 Blood Type Antibody Screen BBK History Checked 07/25/17 07/25/17 07/25/17 01:13 01:42 06:30 WBC RBC Hgb Hct MCV MCH MCHC RDW Plt Count MPV Neut % (Auto) Lymph % (Auto) [place] % (Auto) Eos % (Auto) Baso % (Auto) Neut # (Auto) Lymph # (Auto) [place] # (Auto) Eos # (Auto) Baso # (Auto) Neutrophils % (Manual) Lymphocytes % (Manual) Monocytes % (Manual) Eosinophils % (Manual) Platelet Estimate Hypochromasia (manual) Anisocytosis (manual) Ovalocytes Acanthocytes (Spur) PT 11.7 INR 1.1 APTT 37.0 Sodium 139 Potassium 3.9 Chloride 102 Carbon Dioxide 26 Anion Gap 15 BUN 11 Creatinine 0.7 Est GFR ( Amer) > 60 Est GFR (Non-Af Amer) > 60 Random Glucose 119 H Hemoglobin A1c Calcium 9.2 Total Bilirubin AST ALT Alkaline Phosphatase Troponin I < 0.0120 Total Protein Albumin Globulin Albumin/Globulin Ratio Triglycerides Cholesterol LDL Cholesterol Direct HDL Cholesterol Blood Type O POSITIVE Antibody Screen Negative BBK History Checked Patient has bt 07/25/17 07/25/17 09:30 09:55 WBC 6.7 RBC 4.38 Hgb 11.3 L Hct 36.0 MCV 82.3 MCH 25.8 L MCHC 31.4 L RDW 18.5 H Plt Count 264 MPV 8.2 Neut % (Auto) 87.6 H Lymph % (Auto) 10.0 L [place] % (Auto) 1.3 Eos % (Auto) 0.1 Baso % (Auto) 1.0 Neut # (Auto) 5.9 Lymph # (Auto) 0.7 L [place] # (Auto) 0.1 Eos # (Auto) 0.0 Baso # (Auto) 0.1 Neutrophils % (Manual) Lymphocytes % (Manual) Monocytes % (Manual) Eosinophils % (Manual) Platelet Estimate Hypochromasia (manual) Anisocytosis (manual) Ovalocytes Acanthocytes (Spur) PT INR APTT Sodium Potassium Chloride Carbon Dioxide Anion Gap BUN Creatinine Est GFR ( Amer) Est GFR (Non-Af Amer) Random Glucose Hemoglobin A1c Calcium Total Bilirubin AST ALT Alkaline Phosphatase Troponin I < 0.0120 Total Protein Albumin Globulin Albumin/Globulin Ratio Triglycerides Cholesterol LDL Cholesterol Direct HDL Cholesterol Blood Type Antibody Screen BBK History Checked
--- NOTE | 2017-07-25 15:36 | CARD ---
APPROVED REPORT EKG Measurement Heart [id number] [place] 158P68 [id number] <Conclusion> Normal sinus rhythm Prolonged QT Abnormal ECG
--- NOTE | 2017-07-25 16:56 | CP.CCUPN ---
CCU Subjective - Physician Review Subjective (Free Text): 46F admitted overnight to ICU for Neuro-monitoring, found to have multiple foci of ICH, initial complaints included headaches and weakness of the R extremities. Presently awake and alert, denies any headaches now , but has had several episodes of substernal mid chest pain, treated with analgesics after EKGs revealed no acute ischemic changes and serial Trops have been negative. Other vitals and I/O's reviewed. ROS: No other pertinent negs or positives on 10+ system review. Allergies: NKDA Home Meds: none PMSFH: Breast CA with R lumpectomy. All other Nursing and physician documentation reviewed to date; no new pertinent info noted relevant to current medical problems. CXR: clear lung arceo bilaterally, SQ Port over left chest ( my interp.) IMPRESSION / MAJOR PROBLEMS NOW: 1. Intracerebral hemorrhage, r/o metastatic Brain disease vs. occult cerebrovascular disease 2. Chronic Disease Anemia PLAN: 1. Neurochecks, seizure precautions, HOB elevation. 2. Repeat brain imaging today as per Neurology with CT abd MRI with contrast studies. 3. Ongoing Mannitol and Decadron, check and follow serum osmo. 4. K supplemented. Check repeat levels with Mag and Phos. CCU Objective - Vital Signs / Intake & Output Vital Signs (Last 4 hours): Vital Signs Temp Pulse Resp BP Pulse Ox 07/25/17 16:42 98.9 F 70 14 125/40 L 100 Intake and Output (Last 8hrs): Intake & Output 07/25/17 07/25/17 07/25/17 06:59 14:59 22:59 Weight 130 lb Other: # Voids Urine, Voided 1 - Physical Exam Head: Positive for: Normocephalic Pupils: Positive for: PERRL Conjunctiva: Positive for: Normal. Negative for: Icteric Mouth: Positive for: Moist Mucous Membranes Cardiovascular: Positive for: Regular Rate and Rhythm, Murmurs, Normal S1, S2. Negative for: Tachycardic Abdomen: Positive for: [place] Tender. Negative for: Tenderness, Distention, Mass/Organomegaly Neurological: Negative for: Motor Func Grossly Intact (RUE 3/5 motor, RLE 0/5 motor. ) Skin: Positive for: Warm, Dry, Rashes Lymphatic: Negative for: Cervical Adenopathy, Axillary Adenopathy, Inguinal Adenopathy Psychiatric: Positive for: Alert, Oriented x 3 - Medications Active Medications: Active Medications Generic Name Dose Route Start Last Admin Trade Name Freq PRN Reason Stop Dose Admin Dexamethasone 10 mg 07/25/17 09:00 07/25/17 09:18 Decadron Inj IVP 10 mg Q8 JORDAN Administration Potassium Chloride/Dextrose/Sod Cl 1,000 mls @ 80 mls/hr 07/25/17 04:00 07/25 04:30 Potassium Chl 40 Meq In D5-1/2ns IV 07/26/17 03:59 80 mls/hr .[id number] JORDAN Administration Mannitol 25 gm 07/25/17 02:00 07/25/17 13:33 Mannitol IV 25 gm Q8H JORDAN Administration Morphine Sulfate 2 mg 07/25/17 06:56 07/25/17 09:15 Morphine IVP 2 mg Q4 PRN Administration Pain, moderate (4-7) Nitroglycerin 0.4 mg 07/25/17 06:10 07/25/17 08:53 Nitrostat Sl Tab SL 0.4 mg Q5M PRN Administration CHEST, ANGINAL DISCOMFORT - Patient Studies Lab Studies: Lab Studies 07/25/17 07/25/17 07/25/17 Range/Units 09:55 09:30 06:30 WBC 6.7 (4.8-10.8) K/uL RBC 4.38 (3.80-5.20) Mil/uL Hgb 11.3 L (12.0-16.0) g/dL Hct 36.0 (34.0-47.0) % MCV 82.3 (81.0-99.0) fl MCH 25.8 L (27.0-31.0) pg MCHC 31.4 L (33.0-37.0) g/dL RDW 18.5 H (11.5-14.5) % Plt Count 264 (130-400) K/uL MPV 8.2 (7.2-11.7) fl Neut % (Auto) 87.6 H (50.0-75.0) % Lymph % (Auto) 10.0 L (20.0-40.0) % [place] % (Auto) 1.3 (0.0-10.0) % Eos % (Auto) 0.1 (0.0-4.0) % Baso % (Auto) 1.0 (0.0-2.0) % Neut # (Auto) 5.9 (1.8-7.0) K/uL Lymph # (Auto) 0.7 L (1.0-4.3) K/uL [place] # (Auto) 0.1 (0.0-0.8) K/uL Eos # (Auto) 0.0 (0.0-0.7) K/uL Baso # (Auto) 0.1 (0.0-0.2) K/uL Neutrophils % (Manual) (42-75) % Lymphocytes % (Manual) (20-50) % Monocytes % (Manual) (0-10) % Eosinophils % (Manual) (0-7) % Platelet Estimate (NORMAL) Hypochromasia (manual) Anisocytosis (manual) Ovalocytes Acanthocytes (Spur) PT (9.8-13.1) Seconds INR (0.9-1.2) APTT (25.6-37.1) Seconds Sodium 139 (132-148) mmol/l Potassium 3.9 (3.6-5.0) MMOL/L Chloride 102 (98-107) mmol/L Carbon Dioxide 26 (22-30) mmol/L Anion Gap 15 (10-20) BUN 11 (7-17) mg/dl Creatinine 0.7 (0.7-1.2) mg/dl Est GFR ( Amer) > 60 Est GFR (Non-Af Amer) > 60 Random Glucose 119 H (65-105) mg/dL Hemoglobin A1c (4.2-6.5) % Calcium 9.2 (8.4-10.2) mg/dL Total Bilirubin (0.2-1.3) mg/dl AST (14-36) U/L ALT (9-52) U/L Alkaline Phosphatase (38-126) U/L Troponin I < 0.0120 < 0.0120 (0.00-0.120) ng/mL Total Protein (6.3-8.2) G/DL Albumin (3.5-5.0) g/dL Globulin (2.2-3.9) gm/dL Albumin/Globulin Ratio (1.0-2.1) Triglycerides (0-149) mg/DL Cholesterol (0-199) mg/dL LDL Cholesterol Direct (0-129) mg/dL HDL Cholesterol (30-70) MG/DL Blood Type Antibody Screen BBK History Checked 07/25/17 07/25/17 07/25/17 Range/Units 01:42 01:13 01:13 WBC (4.8-10.8) K/uL RBC (3.80-5.20) Mil/uL Hgb (12.0-16.0) g/dL Hct (34.0-47.0) % MCV (81.0-99.0) fl MCH (27.0-31.0) pg MCHC (33.0-37.0) g/dL RDW (11.5-14.5) % Plt Count (130-400) K/uL MPV (7.2-11.7) fl Neut % (Auto) (50.0-75.0) % Lymph % (Auto) (20.0-40.0) % [place] % (Auto) (0.0-10.0) % Eos % (Auto) (0.0-4.0) % Baso % (Auto) (0.0-2.0) % Neut # (Auto) (1.8-7.0) K/uL Lymph # (Auto) (1.0-4.3) K/uL [place] # (Auto) (0.0-0.8) K/uL Eos # (Auto) (0.0-0.7) K/uL Baso # (Auto) (0.0-0.2) K/uL Neutrophils % (Manual) (42-75) % Lymphocytes % (Manual) (20-50) % Monocytes % (Manual) (0-10) % Eosinophils % (Manual) (0-7) % Platelet Estimate (NORMAL) Hypochromasia (manual) Anisocytosis (manual) Ovalocytes Acanthocytes (Spur) PT 11.7 (9.8-13.1) Seconds INR 1.1 (0.9-1.2) APTT 37.0 (25.6-37.1) Seconds Sodium (132-148) mmol/l Potassium (3.6-5.0) MMOL/L Chloride (98-107) mmol/L Carbon Dioxide (22-30) mmol/L Anion Gap (10-20) BUN (7-17) mg/dl Creatinine (0.7-1.2) mg/dl Est GFR ( Amer) Est GFR (Non-Af Amer) Random Glucose (65-105) mg/dL Hemoglobin A1c 5.7 (4.2-6.5) % Calcium (8.4-10.2) mg/dL Total Bilirubin (0.2-1.3) mg/dl AST (14-36) U/L ALT (9-52) U/L Alkaline Phosphatase (38-126) U/L Troponin I (0.00-0.120) ng/mL Total Protein (6.3-8.2) G/DL Albumin (3.5-5.0) g/dL Globulin (2.2-3.9) gm/dL Albumin/Globulin Ratio (1.0-2.1) Triglycerides (0-149) mg/DL Cholesterol (0-199) mg/dL LDL Cholesterol Direct (0-129) mg/dL HDL Cholesterol (30-70) MG/DL Blood Type O POSITIVE Antibody Screen Negative BBK History Checked Patient has bt 07/25/17 07/25/17 Range/Units 01:13 01:13 WBC 12.6 H (4.8-10.8) K/uL RBC 4.37 (3.80-5.20) Mil/uL Hgb 11.3 L (12.0-16.0) g/dL Hct 36.0 (34.0-47.0) % MCV 82.4 D (81.0-99.0) fl MCH 26.0 L (27.0-31.0) pg MCHC 31.5 L (33.0-37.0) g/dL RDW 18.7 H (11.5-14.5) % Plt Count 285 (130-400) K/uL MPV 8.7 (7.2-11.7) fl Neut % (Auto) 85.6 H (50.0-75.0) % Lymph % (Auto) 8.3 L (20.0-40.0) % [place] % (Auto) 4.8 (0.0-10.0) % Eos % (Auto) 0.1 (0.0-4.0) % Baso % (Auto) 1.2 (0.0-2.0) % Neut # (Auto) 10.8 H (1.8-7.0) K/uL Lymph # (Auto) 1.0 (1.0-4.3) K/uL [place] # (Auto) 0.6 (0.0-0.8) K/uL Eos # (Auto) 0.0 (0.0-0.7) K/uL Baso # (Auto) 0.2 (0.0-0.2) K/uL Neutrophils % (Manual) 90 H (42-75) % Lymphocytes % (Manual) 8 L (20-50) % Monocytes % (Manual) 1 (0-10) % Eosinophils % (Manual) 1 (0-7) % Platelet Estimate Normal (NORMAL) Hypochromasia (manual) Slight Anisocytosis (manual) Slight Ovalocytes Slight Acanthocytes (Spur) Slight PT (9.8-13.1) Seconds INR (0.9-1.2) APTT (25.6-37.1) Seconds Sodium 143 (132-148) mmol/l Potassium 3.3 L (3.6-5.0) MMOL/L Chloride 105 (98-107) mmol/L Carbon Dioxide 25 (22-30) mmol/L Anion Gap 16 (10-20) BUN 14 (7-17) mg/dl Creatinine 0.8 (0.7-1.2) mg/dl Est GFR ( Amer) > 60 Est GFR (Non-Af Amer) > 60 Random Glucose 61 L (65-105) mg/dL Hemoglobin A1c (4.2-6.5) % Calcium 9.7 (8.4-10.2) mg/dL Total Bilirubin 0.4 (0.2-1.3) mg/dl AST 22 (14-36) U/L ALT 22 (9-52) U/L Alkaline Phosphatase 48 (38-126) U/L Troponin I < 0.0120 (0.00-0.120) ng/mL Total Protein 7.9 (6.3-8.2) G/DL Albumin 4.4 (3.5-5.0) g/dL Globulin 3.5 (2.2-3.9) gm/dL Albumin/Globulin Ratio 1.2 (1.0-2.1) Triglycerides 78 (0-149) mg/DL Cholesterol 192 (0-199) mg/dL LDL Cholesterol Direct 104 (0-129) mg/dL HDL Cholesterol 59 (30-70) MG/DL Blood Type Antibody Screen BBK History Checked Laboratory Results - last 24 hr 07/25/17 07/25/17 07/25/17 01:13 01:13 01:13 WBC 12.6 H RBC 4.37 Hgb 11.3 L Hct 36.0 MCV 82.4 D MCH 26.0 L MCHC 31.5 L RDW 18.7 H Plt Count 285 MPV 8.7 Neut % (Auto) 85.6 H Lymph % (Auto) 8.3 L [place] % (Auto) 4.8 Eos % (Auto) 0.1 Baso % (Auto) 1.2 Neut # (Auto) 10.8 H Lymph # (Auto) 1.0 [place] # (Auto) 0.6 Eos # (Auto) 0.0 Baso # (Auto) 0.2 Neutrophils % (Manual) 90 H Lymphocytes % (Manual) 8 L Monocytes % (Manual) 1 Eosinophils % (Manual) 1 Platelet Estimate Normal Hypochromasia (manual) Slight Anisocytosis (manual) Slight Ovalocytes Slight Acanthocytes (Spur) Slight PT INR APTT Sodium 143 Potassium 3.3 L Chloride 105 Carbon Dioxide 25 Anion Gap 16 BUN 14 Creatinine 0.8 Est GFR ( Amer) > 60 Est GFR (Non-Af Amer) > 60 Random Glucose 61 L Hemoglobin A1c 5.7 Calcium 9.7 Total Bilirubin 0.4 AST 22 ALT 22 Alkaline Phosphatase 48 Troponin I < 0.0120 Total Protein 7.9 Albumin 4.4 Globulin 3.5 Albumin/Globulin Ratio 1.2 Triglycerides 78 Cholesterol 192 LDL Cholesterol Direct 104 HDL Cholesterol 59 Blood Type Antibody Screen BBK History Checked 07/25/17 07/25/17 07/25/17 01:13 01:42 06:30 WBC RBC Hgb Hct MCV MCH MCHC RDW Plt Count MPV Neut % (Auto) Lymph % (Auto) [place] % (Auto) Eos % (Auto) Baso % (Auto) Neut # (Auto) Lymph # (Auto) [place] # (Auto) Eos # (Auto) Baso # (Auto) Neutrophils % (Manual) Lymphocytes % (Manual) Monocytes % (Manual) Eosinophils % (Manual) Platelet Estimate Hypochromasia (manual) Anisocytosis (manual) Ovalocytes Acanthocytes (Spur) PT 11.7 INR 1.1 APTT 37.0 Sodium 139 Potassium 3.9 Chloride 102 Carbon Dioxide 26 Anion Gap 15 BUN 11 Creatinine 0.7 Est GFR ( Amer) > 60 Est GFR (Non-Af Amer) > 60 Random Glucose 119 H Hemoglobin A1c Calcium 9.2 Total Bilirubin AST ALT Alkaline Phosphatase Troponin I < 0.0120 Total Protein Albumin Globulin Albumin/Globulin Ratio Triglycerides Cholesterol LDL Cholesterol Direct HDL Cholesterol Blood Type O POSITIVE Antibody Screen Negative BBK History Checked Patient has bt 07/25/17 07/25/17 09:30 09:55 WBC 6.7 RBC 4.38 Hgb 11.3 L Hct 36.0 MCV 82.3 MCH 25.8 L MCHC 31.4 L RDW 18.5 H Plt Count 264 MPV 8.2 Neut % (Auto) 87.6 H Lymph % (Auto) 10.0 L [place] % (Auto) 1.3 Eos % (Auto) 0.1 Baso % (Auto) 1.0 Neut # (Auto) 5.9 Lymph # (Auto) 0.7 L [place] # (Auto) 0.1 Eos # (Auto) 0.0 Baso # (Auto) 0.1 Neutrophils % (Manual) Lymphocytes % (Manual) Monocytes % (Manual) Eosinophils % (Manual) Platelet Estimate Hypochromasia (manual) Anisocytosis (manual) Ovalocytes Acanthocytes (Spur) PT INR APTT Sodium Potassium Chloride Carbon Dioxide Anion Gap BUN Creatinine Est GFR ( Amer) Est GFR (Non-Af Amer) Random Glucose Hemoglobin A1c Calcium Total Bilirubin AST ALT Alkaline Phosphatase Troponin I < 0.0120 Total Protein Albumin Globulin Albumin/Globulin Ratio Triglycerides Cholesterol LDL Cholesterol Direct HDL Cholesterol Blood Type Antibody Screen BBK History Checked Radiology Impressions: see above Fingerstick Blood Sugar Results: 96
--- NOTE | 2017-07-25 20:38 | CP.PCM.PN ---
Subjective - Date & Time of Evaluation Date of Evaluation: 07/25/17 Time of Evaluation: 12:00 - Subjective Subjective: Patient seen and examined bedside. With right side weakness more on the right lower extremity . With allergic skin reaction and urticaria affecting face , back and abdomen after chloroprep use Hemodynamically stable, afebrile Complains of chest pain Objective - Vital Signs/Intake and Output Vital Signs (last 24 hours): Temp Pulse Resp BP Pulse Ox 98.9 F 85 20 114/79 100 07/25/17 16:42 07/25/17 18:00 07/25/17 18:00 07/25/17 18:00 07/25/17 18:00 - Medications Medications: Current Medications Dexamethasone (Decadron Inj) 10 mg IVP Q8 REPLACED BY [facility] Last Admin: 07/25/17 17:28 Dose: 10 mg Potassium Chloride/Dextrose/Sod Cl (Potassium Chl 40 Meq In D5-1/2ns) 1,000 mls @ 80 mls/hr IV .[id number] REPLACED BY [facility] Stop: 07/26/17 03:59 Last Admin: 07/25/17 04:30 Dose: 80 mls/hr Mannitol (Mannitol) 25 gm IV Q8H REPLACED BY [facility] Last Admin: 07/25/17 19:54 Dose: 25 gm Morphine Sulfate (Morphine) 2 mg IVP Q4 PRN PRN Reason: Pain, moderate (4-7) Last Admin: 07/25/17 09:15 Dose: 2 mg Nicotine (Nicoderm Cq) 1 patch TD DAILY REPLACED BY [facility] Nitroglycerin (Nitrostat Sl Tab) 0.4 mg SL Q5M PRN PRN Reason: CHEST, ANGINAL DISCOMFORT Last Admin: 07/25/17 08:53 Dose: 0.4 mg - Labs Labs: 07/25/17 09:30 07/25/17 06:30 PT 11.7 Seconds (9.8-13.1) 07/25/17 01:13 INR 1.1 (0.9-1.2) 07/25/17 01:13 APTT 37.0 Seconds (25.6-37.1) 07/25/17 01:13 - Constitutional Appears: Non-toxic, No Acute Distress - Head Exam Head Exam: ATRAUMATIC, NORMAL INSPECTION, NORMOCEPHALIC - Eye Exam Eye Exam: EOMI, Normal appearance, PERRL Pupil Exam: NORMAL ACCOMODATION - ENT Exam ENT Exam: Mucous Membranes Moist, Normal Exam - Neck Exam Neck Exam: Full ROM, Normal Inspection - Respiratory Exam Respiratory Exam: Clear to Ausculation Bilateral, NORMAL BREATHING PATTERN. absent: Rales, Rhonchi, Wheezes - Cardiovascular Exam Cardiovascular Exam: REGULAR RHYTHM, RRR, +S1, +S2. absent: JVD - GI/Abdominal Exam GI & Abdominal Exam: Soft, Normal Bowel Sounds. absent: Distended, Guarding, Tenderness, Rebound - Rectal Exam Rectal Exam: Deferred - Extremities Exam Extremities Exam: Full ROM, Normal Capillary Refill, Normal Inspection. absent : Pedal Edema - Back Exam Back Exam: NORMAL INSPECTION - Neurological Exam Neurological Exam: Alert, Awake, CN II-XII Intact, Oriented x3 Neuro motor strength exam: Left Upper Extremity: 5, Right Upper Extremity: 4, Left Lower Extremity: 5, Right Lower Extremity: 2/1 - Psychiatric Exam Psychiatric exam: Normal Affect, Normal Mood - Skin Skin Exam: Dry, Intact, Urticaria, Warm Assessment and Plan - Assessment and Plan (Free Text) Assessment: 46 years old female with hx of Breast cancer 7 years ago ,s/p Chemotherapy and radiotherapy, came with 2 hours hx of headache associated with weakness of the right upper and lower extremities. Code Stroke called in the ED.NIHSS was [address] head showed left frontal hematoma 3.4x 2.2 cm , surrounding edema and right temp hyperdense mass 1.6x 1 cm . Minimal midline shift . patient admitted in ICU , started on Decadron and Manitol Drip. Neurology and neurosurgery consulted At present hemodynamically stable, still with right side weakness 1. Acute CVA with Intracranial Hemorrhage patient with right side weakness RUE 4/5 and RLE 1/5 CT head showed left frontal hematoma 3.4x 2.2 cm , surrounding edema and right temp hyperdense mass 1.6x 1 cm . Minimal midline shift . Started on Manitol and Decadron as per neuro recommendations MRI brain showed again A moderate left frontal intraparenchymal hemorrhage and 1.8 cm enhancing lesion is seen at the right temporoparietal junction posteriorly suspicious for a benign meningioma. Discussed with Dr Bedoya neuro surgeon. He recommends no surgical intervention at present, repeat MRI in 2 weeks, PT and rehab Discussed with Dr Sena neurologist. Given the patient's distant history of breast cancer possibility of having a bleding brain met is high on differential. Will continue monitoring patient in ICU Continue neurochecks. Will repeat MRI brain on Friday D/c manitol and continue tappering dose of decadron 2.Acute Allergic skin reaction Given Solumedrol and Benadryl IV 3. History of breast cancer s/p resection , chemo and radiation 7 years ago 4. Hypokalemia replaceed and resolved 5. ACS ruled out with chest pain trop x 3 negative EKG with no acute ST- T wave changes , some QTC prolongation Continue cardiac monitoring 6. Leukocytosis most likely reactive 7. Stress ulcer Prophylaxis Pepcid 8.DVT Prophylaxis SCD
--- NOTE | 2017-07-26 01:43 | CON ---
HISTORY OF PRESENT ILLNESS: This is a rather unfortunate 46-year-old lady who presented with a sudden onset of right hemiparesis. She was confused. She was brought to the [facility] ER where she was found to have an intracranial hemorrhage. PAST MEDICAL HISTORY: Most salient for having a history of breast cancer. She was treated with chemotherapy and radiation. Obviously, the concern is for a met here. The rest of her medications, allergies, etc. are all reviewed in the EMR. Speaking with her now, she was just given Benadryl. She is a little groggy, but otherwise her mental status was okay. She has already a flexed hemiparesis of the right upper extremity. She has profound weakness of the right lower extremity. Left side is intact. CT done last night shows an acute intracerebral hemorrhage. While not exceedingly large, unfortunately is directly in the motor strip, there is a very minimal mass effect. MRI with contrast done today demonstrate that there was no contrast enhancement in and around the area of this hemorrhage thus not ruling out an underlying met, at the same time not demonstrating any evidence thereof. Interestingly, there was also a right temporoparietal dural based lesion that enhanced brightly. In my opinion, this is most consistent with a meningioma, however of course a dural-based met is also possible. My recommendation would be to repeat the MRI with contrast in about 2 or 3 weeks, i.e., to give some time for the blood to dissolve and be reabsorbed and we would get a better chance of seeing if in fact there is an underlying metastasis. Additionally, we can look at the dural-based lesion to see if it had increased in size. I relate all this information to the patient and family. Arcadio Bedoya MD
[2017-07-26 05:57] LABS: HEMOGLOBIN 11.4 g/dL (12.0-16.0); MEAN CELL VOLUME 82.7 fl (81.0-99.0); MEAN CORPUSCULAR HGB CONC 31.5 g/dL (33.0-37.0); RBC 4.37 Mil/uL (3.80-5.20); RED CELL DISTRIBUTION WIDTH 18.9 % (11.5-14.5); WHITE BLOOD COUNT 14.6 K/uL (4.8-10.8)
[2017-07-26 06:05] LABS: BLOOD UREA NITROGEN 16 mg/dl (7-17); CALCIUM 9.2 mg/dL (8.4-10.2); GFR AFRICAN-AMERICAN > 60; GFR NON-AFRICAN AMERICAN > 60
[2017-07-26] MEDS: levETIRAcetam 500 MG in Sodium Chloride 0.9% 100 ML IVPB SCH ×2 (10:42→20:20)
--- NOTE | 2017-07-26 12:03 | CP.PCM.PN ---
Subjective - Date & Time of Evaluation Date of Evaluation: 07/26/17 Time of Evaluation: 10:45 - Subjective Subjective: Pt reports that she had episodes of twitching this am - started by [employer] on Keppra no SCHULTE no dizziness tolerating PO diet denies CP no SOB no abd pain Objective - Vital Signs/Intake and Output Vital Signs (last 24 hours): Temp Pulse Resp BP Pulse Ox 98.4 F 76 16 110/61 100 07/26/17 04:00 07/26/17 10:00 07/26/17 08:00 07/26/17 10:00 07/26/17 08:00 - Medications Medications: Current Medications Dexamethasone (Decadron Inj) 10 mg IVP Q8 [facility] Last Admin: 07/26/17 09:01 Dose: 10 mg Levetiracetam 500 mg/ Sodium (Chloride) 105 mls @ 210 mls/hr IVPB Q12 JORDAN Last Admin: 07/26/17 10:42 Dose: 210 mls/hr Morphine Sulfate (Morphine) 2 mg IVP Q4 PRN PRN Reason: Pain, moderate (4-7) Last Admin: 07/25/17 09:15 Dose: 2 mg Nicotine (Nicoderm Cq) 1 patch TD DAILY [facility] Last Admin: 07/26/17 09:01 Dose: 1 patch Nitroglycerin (Nitrostat Sl Tab) 0.4 mg SL Q5M PRN PRN Reason: CHEST, ANGINAL DISCOMFORT Last Admin: 07/25/17 08:53 Dose: 0.4 mg - Labs Labs: 07/26/17 05:14 07/26/17 05:14 PT 11.7 Seconds (9.8-13.1) 07/25/17 01:13 INR 1.1 (0.9-1.2) 07/25/17 01:13 APTT 37.0 Seconds (25.6-37.1) 07/25/17 01:13 - Constitutional Appears: No Acute Distress - Head Exam Head Exam: ATRAUMATIC, NORMAL INSPECTION, NORMOCEPHALIC - Eye Exam Eye Exam: EOMI, Normal appearance Pupil Exam: NORMAL ACCOMODATION - ENT Exam ENT Exam: Mucous Membranes Moist, Normal External Ear Exam - Neck Exam Neck Exam: Full ROM. absent: Meningismus - Respiratory Exam Respiratory Exam: NORMAL BREATHING PATTERN. absent: Respiratory Distress - Cardiovascular Exam Cardiovascular Exam: REGULAR RHYTHM, +S1, +S2 - GI/Abdominal Exam GI & Abdominal Exam: Soft, Normal Bowel Sounds. absent: Tenderness - Extremities Exam Extremities Exam: Normal Capillary Refill. absent: Calf Tenderness, Pedal Edema - Back Exam Back Exam: absent: CVA tenderness (L), CVA tenderness (R) - Neurological Exam Neurological Exam: Alert, Awake, Oriented x3 Neuro motor strength exam: Left Upper Extremity: 5, Right Upper Extremity: 4, Left Lower Extremity: 5, Right Lower Extremity: 2/1 - Psychiatric Exam Psychiatric exam: Normal Affect, Normal Mood - Skin Skin Exam: Dry, Normal Color, Warm Assessment and Plan - Assessment and Plan (Free Text) Assessment: 46 years old female with hx of Breast cancer 7 years ago ,s/p Chemotherapy and radiotherapy, came with 2 hours hx of headache associated with weakness of the right upper and lower extremities. Code Stroke called in the ED. NIHSS was [address] head showed left frontal hematoma 3.4x 2.2 cm , surrounding edema and right temp hyperdense mass 1.6x 1 cm . Minimal midline shift . Patient admitted in ICU , started on Decadron and Manitol Drip. Neurology and neurosurgery consulted At present hemodynamically stable, still with right side weakness 1. Acute CVA with Intracranial Hemorrhage patient with right side weakness RUE 4/5 and RLE 1/5 CT head showed left frontal hematoma 3.4x 2.2 cm , surrounding edema and right temp hyperdense mass 1.6x 1 cm . Minimal midline shift . Started on Mannitol and Decadron as per neuro recommendations- will started to taper Decadron, now off Mannitol MRI brain showed again A moderate left frontal intraparenchymal hemorrhage and 1.8 cm enhancing lesion is seen at the right temporoparietal junction posteriorly suspicious for a benign meningioma. Dr Bedoya neuro surgeon - recommends no surgical intervention at present, repeat MRI in 2 weeks, PT and rehab Dr Sena neurologist - Given the patient's distant history of breast cancer possibility of having a bleeding brain mets is high on differential. Continue neurochecks. Repeat MRI brain on Friday 2. History of breast cancer s/p resection , chemo and radiation 7 years ago follows up with Dr Palm as outpt 3. Twitching ? Seizures started on Keppra EEG 4. CP, ACS ruled out prob musculoskeletal trop x 3 negative EKG with no acute ST- T wave changes , some QTC prolongation Continue cardiac monitoring 5. Leukocytosis , reactive most likely reactive 6. Stress ulcer Prophylaxis Pepcid 8.DVT Prophylaxis SCD no anticoag sec to Brain bleed
--- NOTE | 2017-07-26 17:25 | CP.PCM.CON ---
History of Present Illness - History of Present Illness History of Present Illness: 46 yr old woman with pmh of breast cancer, s/p chemotherapy and radiation, presented with a 2 hour history of vague malaise and headache, found to have a large left cortical hemorrhage, with associated right upper and lower extremity weakness. Code Stroke called in the ED.NIHSS was 8 in the ED. Patient is not a tpa candidate due to hemorrhage. PMH: Breast Cancer Dx 7years ago and treated with Chemotherapy and Radiotherapy , Cholelithiasis PSH: Right lumpectomy and and right axillary lymph nodes resection, SH: Light smoker; No illegal drug use; No ETOH use; Live with family FH: States: No Family hx Allergies: NKDA Medications: Reviewed on exam: aaox3. pupils 3mm-2mm with light. EOMI. CN 2-12 normal. no facial droop. motor; right arm : flaccid, no strength. all other muscle groups 5/5 right leg: flicker of movement. sensory: no loss of ft, pin on right upper and lower extremity. Gait: not tested. +3 ul and ll bl. TOes: left up, right down. no clonus. Past Patient History - Past Medical History & Family History Past Medical History?: Yes - Past Social History Smoking Status: Light Smoker < 10 Cigarettes Daily Chewing Tobacco Use: No Cigar Use: No Alcohol: None Drugs: Denies Home Situation {Lives}: With Family - CARDIAC Hx Hypertension: Yes - PULMONARY Hx Respiratory Disorders: No - NEUROLOGICAL Hx Neurological Disorder: No - HEENT Hx HEENT Problems: No - RENAL Hx Chronic Kidney Disease: No - ENDOCRINE/METABOLIC Hx Endocrine Disorders: No - HEMATOLOGICAL/ONCOLOGICAL Hx Cancer: Yes (right breast) - INTEGUMENTARY Hx Dermatological Problems: No - MUSCULOSKELETAL/RHEUMATOLOGICAL Hx Musculoskeletal Disorders: No - GASTROINTESTINAL Hx Gastrointestinal Disorders: No - GENITOURINARY/GYNECOLOGICAL Hx Genitourinary Disorders: No Other/Comment: RIGHT BREAST CANCER - PSYCHIATRIC Hx Psychophysiologic Disorder: No Hx Substance Use: No - SURGICAL HISTORY Hx Surgeries: Yes Hx Mastectomy: Yes (right) - ANESTHESIA Hx Anesthesia: Yes Hx Anesthesia Reactions: No Hx Malignant Hyperthermia: No Meds Allergies/Adverse Reactions: Allergies Allergy/AdvReac Type Severity Reaction Status Date / Time No Known Allergies Allergy Verified 07/25/17 00:03 - Medications Medications: Current Medications Dexamethasone (Decadron Inj) 10 mg IVP Q8 [facility] Last Admin: 07/25/17 09:18 Dose: 10 mg Potassium Chloride/Dextrose/Sod Cl (Potassium Chl 40 Meq In D5-1/2ns) 1,000 mls @ 80 mls/hr IV .[id number] [facility] Stop: 07/26/17 03:59 Last Admin: 07/25/17 04:30 Dose: 80 mls/hr Mannitol (Mannitol) 25 gm IV Q8H [facility] Last Admin: 07/25/17 13:33 Dose: 25 gm Morphine Sulfate (Morphine) 2 mg IVP Q4 PRN PRN Reason: Pain, moderate (4-7) Last Admin: 07/25/17 09:15 Dose: 2 mg Nitroglycerin (Nitrostat Sl Tab) 0.4 mg SL Q5M PRN PRN Reason: CHEST, ANGINAL DISCOMFORT Last Admin: 07/25/17 08:53 Dose: 0.4 mg Results - Vital Signs Recent Vital Signs: Last Vital Signs Temp 98.5 F 07/25/17 12:00 Pulse 78 07/25/17 08:00 Resp 18 07/25/17 08:00 BP 120/78 07/25/17 08:00 Pulse Ox 100 07/25/17 08:00 - Labs Result Diagrams: 07/26/17 05:14 07/26/17 05:14 Labs: Laboratory Results - last 24 hr 07/25/17 07/25/17 07/25/17 01:13 01:13 01:13 WBC 12.6 H RBC 4.37 Hgb 11.3 L Hct 36.0 MCV 82.4 D MCH 26.0 L MCHC 31.5 L RDW 18.7 H Plt Count 285 MPV 8.7 Neut % (Auto) 85.6 H Lymph % (Auto) 8.3 L Dickenson % (Auto) 4.8 Eos % (Auto) 0.1 Baso % (Auto) 1.2 Neut # (Auto) 10.8 H Lymph # (Auto) 1.0 Dickenson # (Auto) 0.6 Eos # (Auto) 0.0 Baso # (Auto) 0.2 Neutrophils % (Manual) 90 H Lymphocytes % (Manual) 8 L Monocytes % (Manual) 1 Eosinophils % (Manual) 1 Platelet Estimate Normal Hypochromasia (manual) Slight Anisocytosis (manual) Slight Ovalocytes Slight Acanthocytes (Spur) Slight PT INR APTT Sodium 143 Potassium 3.3 L Chloride 105 Carbon Dioxide 25 Anion Gap 16 BUN 14 Creatinine 0.8 Est GFR ( Amer) > 60 Est GFR (Non-Af Amer) > 60 Random Glucose 61 L Hemoglobin A1c 5.7 Calcium 9.7 Total Bilirubin 0.4 AST 22 ALT 22 Alkaline Phosphatase 48 Troponin I < 0.0120 Total Protein 7.9 Albumin 4.4 Globulin 3.5 Albumin/Globulin Ratio 1.2 Triglycerides 78 Cholesterol 192 LDL Cholesterol Direct 104 HDL Cholesterol 59 Blood Type Antibody Screen BBK History Checked 07/25/17 07/25/17 07/25/17 01:13 01:42 06:30 WBC RBC Hgb Hct MCV MCH MCHC RDW Plt Count MPV Neut % (Auto) Lymph % (Auto) Dickenson % (Auto) Eos % (Auto) Baso % (Auto) Neut # (Auto) Lymph # (Auto) Dickenson # (Auto) Eos # (Auto) Baso # (Auto) Neutrophils % (Manual) Lymphocytes % (Manual) Monocytes % (Manual) Eosinophils % (Manual) Platelet Estimate Hypochromasia (manual) Anisocytosis (manual) Ovalocytes Acanthocytes (Spur) PT 11.7 INR 1.1 APTT 37.0 Sodium 139 Potassium 3.9 Chloride 102 Carbon Dioxide 26 Anion Gap 15 BUN 11 Creatinine 0.7 Est GFR ( Amer) > 60 Est GFR (Non-Af Amer) > 60 Random Glucose 119 H Hemoglobin A1c Calcium 9.2 Total Bilirubin AST ALT Alkaline Phosphatase Troponin I < 0.0120 Total Protein Albumin Globulin Albumin/Globulin Ratio Triglycerides Cholesterol LDL Cholesterol Direct HDL Cholesterol Blood Type O POSITIVE Antibody Screen Negative BBK History Checked Patient has bt 07/25/17 07/25/17 09:30 09:55 WBC 6.7 RBC 4.38 Hgb 11.3 L Hct 36.0 MCV 82.3 MCH 25.8 L MCHC 31.4 L RDW 18.5 H Plt Count 264 MPV 8.2 Neut % (Auto) 87.6 H Lymph % (Auto) 10.0 L Dickenson % (Auto) 1.3 Eos % (Auto) 0.1 Baso % (Auto) 1.0 Neut # (Auto) 5.9 Lymph # (Auto) 0.7 L Dickenson # (Auto) 0.1 Eos # (Auto) 0.0 Baso # (Auto) 0.1 Neutrophils % (Manual) Lymphocytes % (Manual) Monocytes % (Manual) Eosinophils % (Manual) Platelet Estimate Hypochromasia (manual) Anisocytosis (manual) Ovalocytes Acanthocytes (Spur) PT INR APTT Sodium Potassium Chloride Carbon Dioxide Anion Gap BUN Creatinine Est GFR ( Amer) Est GFR (Non-Af Amer) Random Glucose Hemoglobin A1c Calcium Total Bilirubin AST ALT Alkaline Phosphatase Troponin I < 0.0120 Total Protein Albumin Globulin Albumin/Globulin Ratio Triglycerides Cholesterol LDL Cholesterol Direct HDL Cholesterol Blood Type Antibody Screen BBK History Checked Assessment & Plan - Assessment and Plan (Free Text) Assessment: 46 yr old woman with what may be metastases from primary breast ca, or hemorrhage from htn bleed (less likely). THere is no history of trauma so i do not think this is the etiology. IN addition, it does not appear to be an aneurysmal bleed. plan 1. decadron 6 mg IV q 6hours 2. FFPs-2 units 3. MRI Brain with contrast 4. ICU admission. 5. Neurosurgical consult.
--- NOTE | 2017-07-26 17:31 | CP.PCM.PN ---
Subjective - Date & Time of Evaluation Date of Evaluation: 07/26/17 Time of Evaluation: 15:30 - Subjective Subjective: Patient complains of twitching in her left leg, and headache, that is 8/10, but morphine is making her nauseous. on exam: Neurological examination unchanged. There is no alexia or agraphia, no apraxia. There is only right upper and lower limb flaccidity MRI Brain: shows an additional circumscribed lesion coming from the dura on the right posterior temporal region, as well as hemorragic focus with surrounding edema in the left cortical region, motor strip. Objective - Vital Signs/Intake and Output Vital Signs (last 24 hours): Temp Pulse Resp BP Pulse Ox 97.7 F 86 16 100/71 97 07/26/17 16:00 07/26/17 16:00 07/26/17 08:00 07/26/17 16:00 07/26/17 16:00 - Medications Medications: Current Medications Dexamethasone (Decadron Inj) 10 mg IVP Q8 [facility] Last Admin: 07/26/17 17:13 Dose: 10 mg Levetiracetam 500 mg/ Sodium (Chloride) 105 mls @ 210 mls/hr IVPB Q12 [facility] Last Admin: 07/26/17 10:42 Dose: 210 mls/hr Morphine Sulfate (Morphine) 2 mg IVP Q4 PRN PRN Reason: Pain, moderate (4-7) Last Admin: 07/25/17 09:15 Dose: 2 mg Nicotine (Nicoderm Cq) 1 patch TD DAILY [facility] Last Admin: 07/26/17 09:01 Dose: 1 patch Nitroglycerin (Nitrostat Sl Tab) 0.4 mg SL Q5M PRN PRN Reason: CHEST, ANGINAL DISCOMFORT Last Admin: 07/25/17 08:53 Dose: 0.4 mg - Labs Labs: 07/26/17 05:14 07/26/17 05:14 PT 11.7 Seconds (9.8-13.1) 07/25/17 01:13 INR 1.1 (0.9-1.2) 07/25/17 01:13 APTT 37.0 Seconds (25.6-37.1) 07/25/17 01:13 Assessment and Plan - Assessment and Plan (Free Text) Assessment: 46 yr old woman with what may be now two mets, primary most likey breast, differential of right sided small meningiom and left sided cortical hemorrhage. I believe she is having focal seizures of her right limb. At this point, we will wait for several days to blood to resorb before we reimage using MRI brain. We may then be able to delineate if this is metastases. plan; 1. DIscontinue morphine. Start percocet 10/325 mg po tid, prn, for pain. 2. COntinue decadron. 3. COntinue keppra iv 500 mg bid. 4. EEG friday 5. Repeat CT head tomorrow.
[2017-07-26] MEDS: Oxycodone/Acetaminophen 5/325 mg Tab PO PRN (20:19)
[2017-07-26 20:47] LABS: BARBITURATES, UR NEGATIVE (NEGATIVE); BENZODIAZEPINES, UR NEGATIVE (NEGATIVE); PHENCYCLIDINE, UR NEGATIVE (NEGATIVE)
[2017-07-26 21:24] LABS: OPIATES, UR POSITIVE (NEGATIVE)
[2017-07-27] MEDS: Oxycodone/Acetaminophen 5/325 mg Tab PO PRN ×2 (06:28→21:09)
[2017-07-27 07:03] LABS: HEMOGLOBIN 11.6 g/dL (12.0-16.0); MEAN CELL VOLUME 82.3 fl (81.0-99.0); MEAN CORPUSCULAR HEMOGLOBIN 25.6 pg (27.0-31.0); MEAN CORPUSCULAR HGB CONC 31.1 g/dL (33.0-37.0); RBC 4.53 Mil/uL (3.80-5.20); RED CELL DISTRIBUTION WIDTH 18.5 % (11.5-14.5); WHITE BLOOD COUNT 15.9 K/uL (4.8-10.8)
[2017-07-27 07:33] LABS: BLOOD UREA NITROGEN 19 mg/dl (7-17); CALCIUM 9.3 mg/dL (8.4-10.2); GFR AFRICAN-AMERICAN > 60; GFR NON-AFRICAN AMERICAN > 60
[2017-07-27] MEDS: levETIRAcetam 500 MG in Sodium Chloride 0.9% 100 ML IVPB SCH ×2 (08:52→21:04)
--- NOTE | 2017-07-27 09:41 | CP.PCM.PN ---
Subjective - Date & Time of Evaluation Date of Evaluation: 07/27/17 Time of Evaluation: 09:39 - Subjective Subjective: Ms. Warren was seen and examined at the bedside in ICU. She is alert, oriented. She denies any headache, dizziness, but intermittent chest pain. She denies any chest pain at the moment. She is able to answer questions appropriately and follow simple commands. She remains with right side flaccidity. She had episode of involuntary movement yesterday possible seizure. Objective - Vital Signs/Intake and Output Vital Signs (last 24 hours): Temp Pulse Resp BP Pulse Ox 97.5 F L 50 L 14 106/67 100 07/27/17 08:00 07/27/17 08:00 07/27/17 08:00 07/27/17 08:00 07/27/17 08:00 Intake and Output: 07/27/17 07/27/17 06:59 18:59 Intake Total 120 Balance 120 - Medications Medications: Current Medications Dexamethasone (Decadron Inj) 10 mg IVP Q8 [facility] Last Admin: 07/27/17 08:51 Dose: 10 mg Levetiracetam 500 mg/ Sodium (Chloride) 105 mls @ 210 mls/hr IVPB Q12 [facility] Last Admin: 07/27/17 08:52 Dose: 210 mls/hr Nicotine (Nicoderm Cq) 1 patch TD DAILY [facility] Last Admin: 07/26/17 09:01 Dose: 1 patch Nitroglycerin (Nitrostat Sl Tab) 0.4 mg SL Q5M PRN PRN Reason: CHEST, ANGINAL DISCOMFORT Last Admin: 07/25/17 08:53 Dose: 0.4 mg Oxycodone/Acetaminophen (Percocet 5/325 Mg Tab) 2 tab PO Q6 PRN PRN Reason: Headache Stop: 07/29/17 19:52 Last Admin: 07/27/17 06:28 Dose: 2 tab - Labs Labs: 07/27/17 06:00 07/27/17 06:00 PT 11.7 Seconds (9.8-13.1) 07/25/17 01:13 INR 1.1 (0.9-1.2) 07/25/17 01:13 APTT 37.0 Seconds (25.6-37.1) 07/25/17 01:13 - Constitutional Appears: No Acute Distress - Head Exam Head Exam: NORMAL INSPECTION - Neurological Exam Neurological Exam: Alert, Awake, Oriented x3 Neuro motor strength exam: Left Upper Extremity: 5, Right Upper Extremity: 0, Left Lower Extremity: 5, Right Lower Extremity: 0 Additional comments: She is alert, oriented x3 with right side flaccidity. Assessment and Plan (1) Intracranial hemorrhage Assessment & Plan: Case discussed with Dr. Sena, continue all current medical, physical, and occupational therapies. Recommend repeat CT of the head without contrast today. MRI of the brain with and without contrast to evaluate brain mets and to be referred to oncology by friday. Status: Acute
--- NOTE | 2017-07-27 12:31 | CP.PCM.PN ---
Subjective - Date & Time of Evaluation Date of Evaluation: 07/27/17 Time of Evaluation: 12:00 - Subjective Subjective: Pt feels better no SCHULTE no dizziness no further seizure like activity denies CP no SOB no abd pain Objective - Vital Signs/Intake and Output Vital Signs (last 24 hours): Temp Pulse Resp BP Pulse Ox 98.3 F 52 L 15 111/73 100 07/27/17 12:00 07/27/17 12:00 07/27/17 12:00 07/27/17 12:00 07/27/17 12:00 Intake and Output: 07/27/17 07/27/17 06:59 18:59 Intake Total 120 Balance 120 - Medications Medications: Current Medications Dexamethasone (Decadron Inj) 10 mg IVP Q8 [facility] Last Admin: 07/27/17 08:51 Dose: 10 mg Levetiracetam 500 mg/ Sodium (Chloride) 105 mls @ 210 mls/hr IVPB Q12 [facility] Last Admin: 07/27/17 08:52 Dose: 210 mls/hr Nicotine (Nicoderm Cq) 1 patch TD DAILY [facility] Last Admin: 07/27/17 12:18 Dose: Not Given Nitroglycerin (Nitrostat Sl Tab) 0.4 mg SL Q5M PRN PRN Reason: CHEST, ANGINAL DISCOMFORT Last Admin: 07/25/17 08:53 Dose: 0.4 mg Oxycodone/Acetaminophen (Percocet 5/325 Mg Tab) 2 tab PO Q6 PRN PRN Reason: Headache Stop: 07/29/17 19:52 Last Admin: 07/27/17 06:28 Dose: 2 tab - Labs Labs: 07/27/17 06:00 07/27/17 06:00 PT 11.7 Seconds (9.8-13.1) 07/25/17 01:13 INR 1.1 (0.9-1.2) 07/25/17 01:13 APTT 37.0 Seconds (25.6-37.1) 07/25/17 01:13 - Constitutional Appears: No Acute Distress - Head Exam Head Exam: ATRAUMATIC, NORMAL INSPECTION, NORMOCEPHALIC - Eye Exam Eye Exam: EOMI, Normal appearance Pupil Exam: NORMAL ACCOMODATION - ENT Exam ENT Exam: Mucous Membranes Moist, Normal External Ear Exam - Neck Exam Neck Exam: Full ROM. absent: Meningismus - Respiratory Exam Respiratory Exam: NORMAL BREATHING PATTERN. absent: Respiratory Distress - Cardiovascular Exam Cardiovascular Exam: REGULAR RHYTHM, +S1, +S2 - GI/Abdominal Exam GI & Abdominal Exam: Soft, Normal Bowel Sounds. absent: Tenderness - Extremities Exam Extremities Exam: Normal Capillary Refill. absent: Calf Tenderness, Pedal Edema - Back Exam Back Exam: absent: CVA tenderness (L), CVA tenderness (R) - Neurological Exam Neurological Exam: Alert, Awake, Oriented x3 Neuro motor strength exam: Left Upper Extremity: 5, Right Upper Extremity: 1, Left Lower Extremity: 5, Right Lower Extremity: 1 - Psychiatric Exam Psychiatric exam: Normal Affect, Normal Mood - Skin Skin Exam: Dry, Normal Color, Warm Assessment and Plan - Assessment and Plan (Free Text) Assessment: 46 years old female with hx of Breast cancer 7 years ago ,s/p Chemotherapy and radiotherapy, came with 2 hours hx of headache associated with weakness of the right upper and lower extremities. Code Stroke called in the ED. NIHSS was [address] head showed left frontal hematoma 3.4x 2.2 cm , surrounding edema and right temporal hyperdense mass 1.6x 1 cm . Minimal midline shift . Patient admitted in ICU , started on Decadron and Mannitol Drip. Neurology and neurosurgery consulted At present hemodynamically stable, still with right side weakness 1. Acute CVA with Intracranial Hemorrhage patient with right side weakness CT head showed left frontal hematoma 3.4x 2.2 cm , surrounding edema and right temp hyperdense mass 1.6x 1 cm . Minimal midline shift . Started on Mannitol and Decadron as per neuro recommendations- started to taper Decadron, now off Mannitol MRI brain showed again A moderate left frontal intraparenchymal hemorrhage and 1.8 cm enhancing lesion is seen at the right temporoparietal junction posteriorly suspicious for a benign meningioma. Dr Bedoya neuro surgeon - recommends no surgical intervention at present, repeat MRI in 2 weeks, PT and rehab Dr Sena neurologist - Given the patient's distant history of breast cancer possibility of having a bleeding brain mets is high on differential. Continue neurochecks. Repeat MRI brain on Friday Urine Tox : + for Cocaine 2. History of breast cancer s/p resection , chemo and radiation 7 years ago follows up with Dr Palm as outpt 3. Twitching ? Seizures started on Keppra EEG 4. CP, ACS ruled out prob musculoskeletal trop x 3 negative EKG with no acute ST- T wave changes , some QTC prolongation Continue cardiac monitoring 5. Leukocytosis , reactive most likely reactive 6. Stress ulcer Prophylaxis Pepcid 8.DVT Prophylaxis SCD no anticoag sec to Brain bleed
--- NOTE | 2017-07-27 14:22 | CT ---
PROCEDURE: CT HEAD WITHOUT CONTRAST. HISTORY: intracranial hemorrhage COMPARISON: None available. TECHNIQUE: Axial computed tomography images were obtained through the head/brain without intravenous contrast. Radiation dose: Total exam DLP = 752.83 mGy-cm. This CT exam was performed using one or more of the following dose reduction techniques: Automated exposure control, adjustment of the mA and/or kV according to patient size, and/or use of iterative reconstruction technique. FINDINGS: HEMORRHAGE: Once again, there is an acute/subacute hematoma in the left high frontal region. The hematoma has elongated and has changed in overall morphology slightly. It now measures 2.0 x 3.5 by 3.8 cm. Previously, it measured approximately 3.6 x 2.3 by 3.4 cm. Minimal overall decrease volume. No other acute hemorrhage appreciated elsewhere. BRAIN: Rounded hyperdense right parietal mass, approximately 1.4 cm. Intra-axial versus extra-axial cannot be determined on the basis of this examination. No other intracranial mass. No atrophy. No subfalcine herniation or downward herniation. VENTRICLES: Unremarkable. No hydrocephalus. No midline shift. No intraventricular hemorrhage. CALVARIUM: Unremarkable. PARANASAL SINUSES: Unremarkable as visualized. No significant inflammatory changes. MASTOID AIR CELLS: Unremarkable as visualized. No inflammatory changes. OTHER FINDINGS: None. IMPRESSION: Minimal overall interval change appearance of high left frontal acute/ subacute hematoma. No midline shift. No subfalcine herniation. No intraventricular or extra-axial hemorrhage. Right parietal mass again noted, possibly meningioma. No other abnormality identified.
[2017-07-28 05:29] LABS: BLOOD UREA NITROGEN 20 mg/dl (7-17); CALCIUM 8.7 mg/dL (8.4-10.2); GFR AFRICAN-AMERICAN > 60; GFR NON-AFRICAN AMERICAN > 60
[2017-07-28 05:59] LABS: HEMOGLOBIN 11.8 g/dL (12.0-16.0); MEAN CELL VOLUME 81.3 fl (81.0-99.0); MEAN CORPUSCULAR HEMOGLOBIN 26.2 pg (27.0-31.0); MEAN CORPUSCULAR HGB CONC 32.2 g/dL (33.0-37.0); RBC 4.52 Mil/uL (3.80-5.20); RED CELL DISTRIBUTION WIDTH 18.6 % (11.5-14.5); WHITE BLOOD COUNT 13.5 K/uL (4.8-10.8)
--- NOTE | 2017-07-28 07:28 | CARD ---
APPROVED REPORT EKG Measurement Heart [id number] <Conclusion> Sinus bradycardia Possible Left atrial enlargement Nonspecific T wave abnormality Abnormal ECG
[2017-07-28] MEDS: levETIRAcetam 500 MG in Sodium Chloride 0.9% 100 ML IVPB SCH (08:50)
--- NOTE | 2017-07-28 08:50 | PN ---
DATE: 07/27/2017 CRITICAL CARE PROGRESS NOTE The patient in ICU, bed 430. Time spent 35 minutes. SUBJECTIVE: The patient is seen and evaluated at the bedside. Past medical, surgical and social history reviewed. A 46-year-old female with history of breast cancer 7 years ago, status post chemo and radiation treatment, admitted with left frontal hematoma and right possible meningioma, noted to have intermittent jerky movements of her right arm and right leg, started on Keppra, remains free of jerky movements, complained of substernal pain, resolved with morphine, now discontinued, currently on Percocet. This morning, the patient's repeat EKG showed no acute abnormality. PHYSICAL EXAMINATION VITAL SIGNS. Temperature 98.7, heart rate 62, blood pressure 122/69, mean arterial pressure 86, respiratory rate 17, saturation 100% on room air. Intake and output not documented. Head, eyes, ears, nose and throat: Pupils are reactive. Conjunctivae pink. Sclerae white. NECK: Supple. Trachea central. CHEST: Bilateral breath sounds clear to auscultation. HEART: Rhythm regular. S1, S2, normal. No audible murmur. ABDOMEN: Bowel sounds present and soft. Liver and spleen not palpable. Bladder not distended. EXTREMITIES: No clubbing, cyanosis or edema. NEUROLOGIC: Right hemiparesis. No facial droop. CURRENT MEDICATIONS: Percocet 5/325 mg 2 tablets q. 6 p.r.n. for headache, nitroglycerin 0.4 mg subcu p.r.n. for chest pain, nicotine patch daily, Keppra 500 mg IV q. 12, and Decadron 10 mg IV q. 8 hours. LABORATORY DATA: WBC 15.9, hemoglobin 11.6, hematocrit . PT 11.7, INR 1.1, PTT 37. SMA-7; sodium 140, potassium 3.9, chloride 101, CO2 28, blood urea nitrogen 19, creatinine 0.7, glucose 116. Troponin negative. EKG: Nonspecific T-wave changes, unchanged. Repeat CAT scan of the head shows minimal interval change in left frontal acute/subacute hematoma. No midline shift. No subfalcine herniation. No intraventricular extra-axial hemorrhage, right parietal mass remains unchanged likely meningioma. Nasal smear MRSA negative. ASSESSMENT AND PLAN: 1. A 46-year-old female with history of carcinoma of right breast status post surgery, chemo and/or radiation treatment, now admitted with right hemiparesis. CT head showed meningioma and left frontal hematoma remains unchanged, on Decadron. Discussed with Neurology consult. Awaiting for an MRI to rule out brain mets. 2. Chest pain likely musculoskeletal. EKG without any evolving changes. Troponin remains negative, resolved with Percocet. 3. Pulmonary: No acute issues. 4. Gastrointestinal: Continue feeding as tolerated. No acute renal issues. No evidence of diabetes or hypo thyroidism, mild leukocytosis secondary to Decadron. Continue deep venous thrombosis and gastrointestinal prophylaxis. Hold anticoagulation secondary to the intracerebral hemorrhage. Sridhar Mackay MD MTDD
--- NOTE | 2017-07-28 09:20 | PN ---
DATE: 07/26/2017 CRITICAL CARE PROGRESS NOTE SUBJECTIVE: The patient in ICU, bed 426. Time spent 35 minutes. The patient is seen and evaluated at the bedside. Past medical, surgical and social history noted. A 46-year-old female with history of breast cancer diagnosed 7 years ago, status post chemotherapy and radiation. Admitted with headache associated with weakness of the right upper and lower extremities. The patient's CT head showed left frontal hematoma 3.4 x 2.2 cm with surrounding edema and right temporal hyperdense mass 1.6 x 1 centimeters, minimal midline shift. The patient admitted to ICU, started on Decadron and mannitol drip. This morning alert and awake. Complaining of intermittent jerky movements of her upper and lower extremities. PHYSICAL EXAMINATION: VITAL SIGNS: Temperature 97.7, heart rate 86, blood pressure 100/71, mean arterial pressure 80, oxygen saturation 97% on oxygen 2 liters nasal cannula. Head, eyes, ears, nose and throat: Pupils reactive. Conjunctivae pink. Sclerae white. NECK: Supple. Trachea central. CHEST: Bilateral breath sounds. Clear to auscultation. HEART: Rhythm regular. S1, S2 normal. No audible murmur. ABDOMEN: Bowel sounds present. Soft. EXTREMITIES: Flaccidity of the upper and lower extremity on the right side. No alexia or agraphia. CURRENT MEDICATIONS: Decadron 10 g IV q. 8 hours, Keppra 500 mg IV q. 12, nicotine patch daily, nitroglycerin tablet 0.4 sublingually q. 4 p.r.n. for chest pain. LABORATORY DATA: WBC 14.6, hemoglobin 11.4, hematocrit 36.2, platelet count of 257. PT 11.7, INR 1.1, PTT 37. SMA-7; sodium 139, potassium 4.1, chloride 100, CO2 27, blood urea nitrogen 16, creatinine 0.7, random glucose 153, calcium 9.2. Brain MRI done on 07/25/2017 shows within the left frontal vertex_ appreciated a moderate size intraparenchymal hemorrhagic measuring 2.3 x 3.7 x 2.8 cm with local mass effect. No evidence of acute early subacute infarction. A 1.8 cm enhancing lesion at the right temporal parietal junction posteriorly suspicious for a benign meningioma. IMPRESSION: Admitted with flaccid right upper and lower extremity secondary to possible mets surrounding intraparenchymal hemorrhage on the left frontal lobe, history of carcinoma of the breast suspected mets to brain, seen by Neurology. Recommend to repeat CT head tomorrow. The patient is noted to have intermittent jerky movements suspected seizure, currently started on Keppra to follow EEG on Friday.. Acute chest pain resolved, acute coronary syndrome ruled out with three, troponin negative. EKG with no acute ST-T changes. Leukocytosis secondary to steroid. Continue deep venous thrombosis. Gastrointestinal prophylaxis. No anticoagulation secondary to intraparenchymal hemorrhage. Sridhar Mackay MD MTDD
--- NOTE | 2017-07-28 09:24 | CP.PCM.PN ---
Subjective - Date & Time of Evaluation Date of Evaluation: 07/28/17 Time of Evaluation: 09:20 - Subjective Subjective: Ms. Warren was seen and examined at the bedside in ICU, She is alert, oriented with right upper extremity flaccid and minimal movement of the right lower extremity. She denies any headache, dizziness, nausea, or vomiting. CT of the head yesterday showed minimal overall interval change appearance of high left frontal acute/ subacute hematoma. No midline shift, No subfalcine herniation. No intraventricular or extra axial hemorrhage. Right parietal mass again noted possibly meningioma. There is no other abnormality noted. She had an episode of headache last night and was medicated with percocet. She also has positive coccaine on 07/26/2017. Objective - Vital Signs/Intake and Output Vital Signs (last 24 hours): Temp Pulse Resp BP Pulse Ox 98.4 F 61 30 H 114/70 99 07/28/17 08:00 07/28/17 08:00 07/28/17 08:00 07/28/17 08:00 07/28/17 08:00 - Medications Medications: Current Medications Dexamethasone (Decadron Inj) 10 mg IVP Q8 [facility] Last Admin: 07/28/17 08:46 Dose: 10 mg Famotidine (Pepcid) 20 mg PO BID [facility] Last Admin: 07/27/17 21:04 Dose: 20 mg Levetiracetam 500 mg/ Sodium (Chloride) 105 mls @ 210 mls/hr IVPB Q12 [facility] Last Admin: 07/28/17 08:50 Dose: 210 mls/hr Nicotine (Nicoderm Cq) 1 patch TD DAILY [facility] Last Admin: 07/28/17 08:51 Dose: Not Given Nitroglycerin (Nitrostat Sl Tab) 0.4 mg SL Q5M PRN PRN Reason: CHEST, ANGINAL DISCOMFORT Last Admin: 07/25/17 08:53 Dose: 0.4 mg Oxycodone/Acetaminophen (Percocet 5/325 Mg Tab) 2 tab PO Q6 PRN PRN Reason: Headache Stop: 07/29/17 19:52 Last Admin: 07/27/17 21:09 Dose: 2 tab - Labs Labs: 07/28/17 04:20 07/28/17 04:20 PT 11.7 Seconds (9.8-13.1) 07/25/17 01:13 INR 1.1 (0.9-1.2) 07/25/17 01:13 APTT 37.0 Seconds (25.6-37.1) 07/25/17 01:13 - Constitutional Appears: No Acute Distress - Head Exam Head Exam: NORMAL INSPECTION - Neurological Exam Neurological Exam: Alert, Awake, Oriented x3 Neuro motor strength exam: Left Upper Extremity: 5, Right Upper Extremity: 0, Left Lower Extremity: 5, Right Lower Extremity: 2/1 Additional comments: Neurological unchanged from previous examination. Assessment and Plan (1) Intracranial hemorrhage Assessment & Plan: Case discussed with Dr. Watson, continue all current medical, physical, and occupational therapies. Pending EEG today and repeat MRI of the brain with and without contrast to evaluate parietal mass. Recommend to treat any electrolyte imbalances. Status: Acute
--- NOTE | 2017-07-28 11:30 | CP.PCM.PN ---
Subjective - Date & Time of Evaluation Date of Evaluation: 07/28/17 Time of Evaluation: 10:45 - Subjective Subjective: Right sided hemiparesis no headache no dizziness denies CP no SOB no abd pain No seizures noted Sinus sana on monitor Objective - Vital Signs/Intake and Output Vital Signs (last 24 hours): Temp Pulse Resp BP Pulse Ox 98.4 F 54 L 16 107/67 99 07/28/17 08:00 07/28/17 10:00 07/28/17 10:00 07/28/17 10:00 07/28/17 08:00 Intake and Output: 07/28/17 07/28/17 06:59 18:59 Intake Total 100 Balance 100 - Medications Medications: Current Medications Dexamethasone (Decadron Inj) 10 mg IVP Q8 [facility] Last Admin: 07/28/17 08:46 Dose: 10 mg Famotidine (Pepcid) 20 mg PO BID [facility] Last Admin: 07/28/17 09:49 Dose: Not Given Levetiracetam 500 mg/ Sodium (Chloride) 105 mls @ 210 mls/hr IVPB Q12 [facility] Last Admin: 07/28/17 08:50 Dose: 210 mls/hr Nicotine (Nicoderm Cq) 1 patch TD DAILY [facility] Last Admin: 07/28/17 08:51 Dose: Not Given Nitroglycerin (Nitrostat Sl Tab) 0.4 mg SL Q5M PRN PRN Reason: CHEST, ANGINAL DISCOMFORT Last Admin: 07/25/17 08:53 Dose: 0.4 mg Oxycodone/Acetaminophen (Percocet 5/325 Mg Tab) 2 tab PO Q6 PRN PRN Reason: Headache Stop: 07/29/17 19:52 Last Admin: 07/27/17 21:09 Dose: 2 tab - Labs Labs: 07/28/17 04:20 07/28/17 04:20 PT 11.7 Seconds (9.8-13.1) 07/25/17 01:13 INR 1.1 (0.9-1.2) 07/25/17 01:13 APTT 37.0 Seconds (25.6-37.1) 07/25/17 01:13 - Constitutional Appears: No Acute Distress - Head Exam Head Exam: ATRAUMATIC, NORMAL INSPECTION, NORMOCEPHALIC - Eye Exam Eye Exam: EOMI, Normal appearance Pupil Exam: NORMAL ACCOMODATION - ENT Exam ENT Exam: Mucous Membranes Moist, Normal External Ear Exam - Neck Exam Neck Exam: Full ROM. absent: Meningismus - Respiratory Exam Respiratory Exam: NORMAL BREATHING PATTERN. absent: Respiratory Distress - Cardiovascular Exam Cardiovascular Exam: REGULAR RHYTHM, +S1, +S2 - GI/Abdominal Exam GI & Abdominal Exam: Soft, Normal Bowel Sounds. absent: Tenderness - Extremities Exam Extremities Exam: Normal Capillary Refill. absent: Calf Tenderness, Pedal Edema - Back Exam Back Exam: absent: CVA tenderness (L), CVA tenderness (R) - Neurological Exam Neurological Exam: Alert, Awake, Oriented x3 Neuro motor strength exam: Left Upper Extremity: 5, Right Upper Extremity: 1, Left Lower Extremity: 5, Right Lower Extremity: 1 - Psychiatric Exam Psychiatric exam: Normal Affect, Normal Mood - Skin Skin Exam: Dry, Normal Color, Warm Assessment and Plan - Assessment and Plan (Free Text) Assessment: 46 years old female with hx of Breast cancer 7 years ago ,s/p Chemotherapy and radiotherapy, came with 2 hours hx of headache associated with weakness of the right upper and lower extremities. Code Stroke called in the ED. NIHSS was [address] head showed left frontal hematoma 3.4x 2.2 cm , surrounding edema and right temporal hyperdense mass 1.6x 1 cm . Minimal midline shift . Patient admitted in ICU , started on Decadron and Mannitol Drip. Neurology and neurosurgery consulted At present hemodynamically stable, still with right side weakness 1. Acute CVA with Intracranial Hemorrhage patient with right sided weakness CT head showed left frontal hematoma 3.4x 2.2 cm , surrounding edema and right temp hyperdense mass 1.6x 1 cm . Minimal midline shift . Initially started on Mannitol and Decadron as per neuro recommendation now off Mannitol cont Decadron MRI brain showed again A moderate left frontal intraparenchymal hemorrhage and 1.8 cm enhancing lesion is seen at the right temporoparietal junction posteriorly suspicious for a benign meningioma. Dr Bedoya neuro surgeon - recommends no surgical intervention at present, repeat MRI in 2 weeks, PT and rehab Continue neurochecks. Repeat MRI brain with and w/o tomorrow Urine Tox : + for Cocaine CTA of head and Neck today 2. History of breast cancer s/p resection , chemo and radiation 7 years ago follows up with Dr Palm as outpt 3. Twitching ? Seizures started on Keppra EEG 4. CP, ACS ruled out prob musculoskeletal trop x 3 negative EKG with no acute ST- T wave changes , some QTC prolongation Continue cardiac monitoring 5. Leukocytosis , reactive most likely reactive 6. Sinus Bradycardia on tele monitor HR deeps to the 40s when she sleeps Cardiology consult 7. Stress ulcer Prophylaxis Pepcid 8.DVT Prophylaxis SCD no anticoag sec to Brain bleed
--- NOTE | 2017-07-28 14:22 | CP.PCM.CON ---
Past Patient History - Past Medical History & Family History Past Medical History?: Yes - Past Social History Smoking Status: Light Smoker < 10 Cigarettes Daily Chewing Tobacco Use: No Cigar Use: No Alcohol: None Drugs: Denies Home Situation {Lives}: With Family - CARDIAC Hx Hypertension: Yes - PULMONARY Hx Respiratory Disorders: No - NEUROLOGICAL Hx Neurological Disorder: No - HEENT Hx HEENT Problems: No - RENAL Hx Chronic Kidney Disease: No - ENDOCRINE/METABOLIC Hx Endocrine Disorders: No - HEMATOLOGICAL/ONCOLOGICAL Hx Cancer: Yes (right breast) - INTEGUMENTARY Hx Dermatological Problems: No - MUSCULOSKELETAL/RHEUMATOLOGICAL Hx Musculoskeletal Disorders: No - GASTROINTESTINAL Hx Gastrointestinal Disorders: No - GENITOURINARY/GYNECOLOGICAL Hx Genitourinary Disorders: No Other/Comment: RIGHT BREAST CANCER - PSYCHIATRIC Hx Psychophysiologic Disorder: No Hx Substance Use: No - SURGICAL HISTORY Hx Surgeries: Yes Hx Mastectomy: Yes (right) - ANESTHESIA Hx Anesthesia: Yes Hx Anesthesia Reactions: No Hx Malignant Hyperthermia: No Meds Allergies/Adverse Reactions: Allergies Allergy/AdvReac Type Severity Reaction Status Date / Time No Known Allergies Allergy Verified 07/25/17 00:03 - Medications Medications: Current Medications Dexamethasone (Decadron Inj) 10 mg IVP Q8 [facility] Last Admin: 07/28/17 08:46 Dose: 10 mg Famotidine (Pepcid) 20 mg PO BID [facility] Last Admin: 07/28/17 09:49 Dose: Not Given Levetiracetam 500 mg/ Sodium (Chloride) 105 mls @ 210 mls/hr IVPB Q12 [facility] Last Admin: 07/28/17 08:50 Dose: 210 mls/hr Nicotine (Nicoderm Cq) 1 patch TD DAILY [facility] Last Admin: 07/28/17 08:51 Dose: Not Given Nitroglycerin (Nitrostat Sl Tab) 0.4 mg SL Q5M PRN PRN Reason: CHEST, ANGINAL DISCOMFORT Last Admin: 07/25/17 08:53 Dose: 0.4 mg Oxycodone/Acetaminophen (Percocet 5/325 Mg Tab) 2 tab PO Q6 PRN PRN Reason: Headache Stop: 07/29/17 19:52 Last Admin: 07/27/17 21:09 Dose: 2 tab Results - Vital Signs Recent Vital Signs: Last Vital Signs Temp 97.9 F 07/28/17 12:00 Pulse 52 L 07/28/17 12:00 Resp 16 02/12/18 12:00 BP 121/60 07/28/17 12:00 Pulse Ox 98 07/28/17 12:00 - Labs Result Diagrams: 07/28/17 04:20 07/28/17 04:20 Labs: Laboratory Results - last 24 hr 07/28/17 07/28/17 04:20 04:20 WBC 13.5 H RBC 4.52 Hgb 11.8 L Hct 36.7 MCV 81.3 MCH 26.2 L MCHC 32.2 L RDW 18.6 H Plt Count 270 Sodium 141 Potassium 3.8 Chloride 101 Carbon Dioxide 28 Anion Gap 16 BUN 20 H Creatinine 0.7 Est GFR ( Amer) > 60 Est GFR (Non-Af Amer) > 60 Random Glucose 120 H Calcium 8.7 Assessment & Plan (1) Bradycardia Status: Acute (2) Intracranial hemorrhage Status: Acute (3) Breast CA Status: Acute (4) Intracranial mass Status: Acute - Assessment and Plan (Free Text) Plan: PTS HR IS IN 60-70 RANGE WHILE AWAKE. IN 40'S WHILE ASLEEP. WOULD KEEP PACER PADS ON. THE JAVIER IS LIKELY FROM ICH. HR IS RESPONSIVE. NO ANTICOAGULATION. WILL FOLLOW. KEEP BP CONTROLLED. CHECK TSH. ECHO.
[2017-07-28] MEDS ORDERED: Iodixanol 320 MG/ML 100 ML BOTTLE IV ONE (15:32)
[2017-07-28] MEDS ORDERED: Sodium Chloride 0.9% 50 ML IV ONE (15:32)
--- NOTE | 2017-07-28 17:14 | CT ---
PROCEDURE: CT Angiography of the neck with contrast HISTORY: Atypical bleed. COMPARISON: Correlation made with prior CT scan brain 07/27/2017. TECHNIQUE: Contiguous helical/transaxial images of the neck were obtained from the level of the skull-base to the superior mediastinum in the arteriographic phase of enhancement. Coronal and sagittal reformats or also generated. IV contrast dose: 75 cc Visipaque 320 contrast material Radiation Dose - DLP: mGy-cm This CT exam was performed using one or more of the following dose reduction techniques: Automated exposure control, adjustment of the mA and/or kV according to patient size, and/or use of iterative reconstruction technique. . FINDINGS: Current study reveals no evidence of acute aortic arch is widely patent without significant atherosclerotic disease. Origins of the great vessels are also widely patent. The right brachiocephalic and left common carotid artery arise from a common trunk. . The visualized common carotid arteries, carotid bifurcations and cervical internal carotid arteries are widely patent with no evidence of occlusion. . No evidence of significant atherosclerotic disease or significant stenosis. . The distal internal carotid arteries including the petrous, cavernous and supraclinoid segments are also patent. Vertebral arteries are codominant and patent throughout without evidence of occlusion or significant stenosis. The visualized major branches of the [place] of [place] are also patent without evidence of large aneurysm nor vascular malformation so far as can be seen. IMPRESSION: No evidence of occlusion or stenosis of the anterior or posterior cerebral circulation. No evidence of large aneurysm nor vascular malformation. Large left posterior frontoparietal hematoma.
[2017-07-28] MEDS ORDERED: Oxycodone/Acetaminophen 5/325 mg Tab PO ONE (20:18)
--- NOTE | 2017-07-29 00:08 | PN ---
CRITICAL CARE PROGRESS NOTE DATE: 07/28/2017 LOCATION: The patient in ICU bed, 426. Time spent 35 minutes. The patient is seen and evaluated at the bedside. Past medical, surgical and social history reviewed. SUBJECTIVE: A 46-year-old female with history of breast cancer, status post chemoradiation treatment 7 years ago, admitted with left frontal hematoma, right possible meningioma, and noted to have intermittent jerky movement of her right arm and right leg, now controlled on Keppra. EEG pending. Complaining of substernal pain and resolved with morphine, now on Percocet, had bradycardia, seen by Cardiology secondary to intracerebral hemorrhage and remains hemodynamically stable. OBJECTIVE: VITAL SIGNS: Temperature 97.9, heart rate 50 to 83, blood pressure 121-107/60-68, respiratory rate 18, and saturating 100%. Intake 722 and output not documented. Weight 130 pounds. HEAD, EYES, EARS, NOSE, AND THROAT: Pupils are reactive. Conjunctivae pink. Sclerae are white. NECK: Supple. Trachea is central. CHEST: Bilateral breath sounds clear to auscultation. HEART: Rhythm regular. S1 and S2 normal intensity. No S3, S4, or gallop. No audible murmur. ABDOMEN: Bowel sounds are present and soft. Liver and spleen not palpable. Bladder not distended. EXTREMITIES: Unremarkable. NEUROLOGIC: Right hemiparesis. CURRENT MEDICATIONS: Percocet 5/325 mg 2 tablets q.6 hours, nitroglycerin 0.4 mg subcu p.r.n., nicotine patch, Keppra 500 IV q.12 hours, and Decadron 10 mg IV q.8 hours. LABORATORY DATA: WBC 13.5, hemoglobin 11.8, hematocrit 36.7, and platelet count of 270. PT 11.7, INR 1.1, and PTT 37. SMA-7; sodium 141, potassium 3.8, chloride 101, CO2 of 28, blood urea nitrogen 20, creatinine 0.7, and random glucose 120. Urine drug screen positive for cocaine. Microbiology, nasal smear MRSA negative. CT head report reviewed. Overall, no significant change from the previous CAT scan. IMPRESSION AND PLAN: Left frontal hematoma, awaiting Neurology input. MRI pending, follow the report. Hypertension controlled. Bradycardia stable, monitor closely with standby for pacing as needed, history of cocaine abuse with intermittent pain, remains seizure free, now on Keppra, and follow EEG report. Sridhar Mackay MD
[2017-07-29 05:52] LABS: HEMOGLOBIN 11.7 g/dL (12.0-16.0); MEAN CELL VOLUME 81.6 fl (81.0-99.0); MEAN CORPUSCULAR HEMOGLOBIN 25.8 pg (27.0-31.0); MEAN CORPUSCULAR HGB CONC 31.7 g/dL (33.0-37.0); RBC 4.54 Mil/uL (3.80-5.20); RED CELL DISTRIBUTION WIDTH 18.3 % (11.5-14.5); WHITE BLOOD COUNT 13.8 K/uL (4.8-10.8)
[2017-07-29 05:53] LABS: BLOOD UREA NITROGEN 25 mg/dl (7-17); CALCIUM 8.9 mg/dL (8.4-10.2); GFR AFRICAN-AMERICAN > 60; GFR NON-AFRICAN AMERICAN > 60
[2017-07-29 06:14] LABS: T3 0.551 nmol/L (1.49-2.60)
[2017-07-29] MEDS: levETIRAcetam 500 MG in Sodium Chloride 0.9% 100 ML IVPB SCH ×3 (09:34→21:11)
[2017-07-29] MEDS ORDERED: Gadodiamide 287 MG/ML VIAL (15ML) IV ONE (10:20)
--- NOTE | 2017-07-29 10:47 | CARD ---
APPROVED REPORT EXAM: Two-dimensional and M-mode echocardiogram with Doppler and color Doppler. Other Information Quality : AverageRhythm : Bradycardia INDICATION Abnormal EKG/Arrhythmia CVA/TIA 2D DIMENSIONS IVSd0.73 (0.7-1.1cm)LVDd3.20 (3.9-5.9cm) LVOT Diameter2.15 (1.8-2.4cm)PWd1.38 (0.7-1.1cm) IVSs1.48 (0.8-1.2cm)LVDs2.11 (2.5-4.0cm) FS (%) 34.0 %PWs1.15 (0.8-1.2cm) M-Mode DIMENSIONS Left Atrium (MM)2.85 (2.5-4.0cm)IVSd0.71 (0.7-1.1cm) Aortic Root2.71 (2.2-3.7cm)LVDd4.79 (4.0-5.6cm) PWd0.82 (0.7-1.1cm)IVSs1.15 cm FS (%) 29 %LVDs3.40 (2.0-3.8cm) PWs1.19 cm Mitral Valve MV E Fhxknnzi67.8cm/sMV DECEL LVTC234tyQT A Uwcxhytq84.6cm/s MV CIM51fvR/A ratio1.4MVA (PHT)3.36cm2 TDI Lateral E' Peak V12.30cm/sMedial E' Peak V9.04cm/sE/Lateral E'4.4 E/Medial E'6.0 Pulmonary Valve PV Peak Sviltytr31.6cm/s LEFT VENTRICLE The left ventricle is normal in size. There is normal left ventricular wall thickness. The left ventricular function is normal. The left ventricular ejection fraction is - 55-60%. There is normal LV segmental wall motion. The left ventricular diastolic function is normal. No left ventricle thrombus noted on this study. There is no ventricular septal defect visualized. There is no left ventricular aneurysm. There is no mass noted in the left ventricle. RIGHT VENTRICLE The right ventricle is normal size. There is normal right ventricular wall thickness. The right ventricular systolic function is normal. ATRIA The left atrium size is normal. There is no thrombus suspected in the left atrium. The right atrium size is normal. AORTIC VALVE There is a vaguely seen echodensity in the AV region on both the 2D parasternal long axis and short axis views, but not on the apical views. Please correlate clinically as to whether this could be a vegetation, thrombus, fibroelastoma or other structure. No aortic regurgitation is present. There is no aortic valvular stenosis. see above MITRAL VALVE The mitral valve is normal in structure. There is no evidence of mitral valve prolapse. There is no mitral valve stenosis. Mitral regurgitation is trace. TRICUSPID VALVE The tricuspid valve is normal in structure. There is mild tricuspid regurgitation. There is no tricuspid valve prolapse or vegetation. There is no tricuspid valve stenosis. PULMONIC VALVE The pulmonary valve is normal in structure. There is no pulmonic valvular regurgitation. GREAT VESSELS The aortic root is normal in size. The IVC is normal in size and collapses >50% with inspiration. PERICARDIAL EFFUSION The pericardium appears normal. There is no pleural effusion. <Conclusion> The left ventricle is normal in size and wall thickness. The left ventricular function is normal. The left ventricular ejection fraction is - 55-60%. The left atrium, right ventricle and right atrium are normal in size. There is a vaguely seen echodensity in the AV region on both the 2D parasternal long axis and short axis views, but not on the apical views(see AV findings). The mitral and tricuspid valves are normal. There is trace mitral regurgitation and mild tricuspid regurgitation. Note: Dr. Ofe Anderson was informed of this echo results and he will review the study and make further clinical decisions. The patient may need a ANTOLIN.
--- NOTE | 2017-07-29 14:33 | CP.PCM.PN ---
Subjective - Date & Time of Evaluation Date of Evaluation: 07/29/17 Time of Evaluation: 14:29 - Subjective Subjective: Ms. Warren was seen and examined today at bedside. She continued to complain of a 5/10 headache, but said she could tolerate it and it is better. She is unable to move her right side. There were no acute events overnight. Objective - Vital Signs/Intake and Output Vital Signs (last 24 hours): Temp Pulse Resp BP Pulse Ox 98.9 F 76 21 122/61 100 07/29/17 13:34 07/29/17 14:00 07/29/17 14:00 07/29/17 14:00 07/29/17 14:00 - Medications Medications: Current Medications Dexamethasone (Decadron Inj) 10 mg IVP Q8 [facility] Last Admin: 07/29/17 09:34 Dose: 10 mg Famotidine (Pepcid) 20 mg PO BID [facility] Last Admin: 07/29/17 09:43 Dose: Not Given Levetiracetam 500 mg/ Sodium (Chloride) 105 mls @ 210 mls/hr IVPB Q12 [facility] Last Admin: 07/29/17 09:34 Dose: 210 mls/hr Nicotine (Nicoderm Cq) 1 patch TD DAILY [facility] Last Admin: 07/29/17 09:43 Dose: Not Given Nitroglycerin (Nitrostat Sl Tab) 0.4 mg SL Q5M PRN PRN Reason: CHEST, ANGINAL DISCOMFORT Last Admin: 07/25/17 08:53 Dose: 0.4 mg Oxycodone/Acetaminophen (Percocet 5/325 Mg Tab) 2 tab PO Q6 PRN PRN Reason: Headache Stop: 07/29/17 19:52 Last Admin: 07/27/17 21:09 Dose: 2 tab - Labs Labs: 07/29/17 04:30 07/29/17 04:30 PT 11.7 Seconds (9.8-13.1) 07/25/17 01:13 INR 1.1 (0.9-1.2) 07/25/17 01:13 APTT 37.0 Seconds (25.6-37.1) 07/25/17 01:13 - Neurological Exam Neurological Exam: Awake, CN II-XII Intact, Oriented x3 Neuro motor strength exam: Left Upper Extremity: 5, Right Upper Extremity: 0, Left Lower Extremity: 5, Right Lower Extremity: 0 Additional comments: Hyper-reflexia with upgoing plantar responses on the right side. Assessment and Plan (1) Intracerebral hemorrhage Assessment & Plan: Based on repeat MRI brain, it is difficult to determine if there is an underlying mass. With positive Utox, a cocaine-related ICH is likely. I recommend continuing BP management, Q 4 neuro-checks. PT/OT. Treat headache with 10 mg decadron IV and 2 grams of magnesium sulfate IV, one time. Will follow from a neurological standpoint. Status: Acute
[2017-07-29] MEDS ORDERED: Magnesium Sulfate 2 gm/50 ml 2 GM/50 ML BAG IVPB ONE (14:35)
--- NOTE | 2017-07-29 15:07 | PCM.EEG ---
Electroencephalogram Report - Electroencephalogram Report Procedure Date: 07/28/17 Interpretation: Indication: ICH and possible seizure. Medications were reviewed. Technical: This is a digitally recorded electroencephalogram. The international 10-20 electrode placement system is used for scalp electrode placement. Eighteen channels of scalp EEG are recorded Another channel was used for for ECG. The data are stored digitally and reviewed in reformatted montages for optimal display. Background: 9 to 10 hertz alpha activity was seen. Maximal over the posterior head region. These activities are symmetric on both sides. They attenuated with eye opening. Focal abnormality: Periodic lateralized discharge was seen. Mainly over the left parietal region. Impression: This EEG is abnormal. Epileptiform discharge was seen. This can represent a potential seizure focus. Clinical correlation is needed.
--- NOTE | 2017-07-29 16:56 | MRI ---
PROCEDURE: MRI BRAIN WITH AND WITHOUT CONTRAST HISTORY: Followup brain lesion. COMPARISON: Comparison made with CTA and CT scan of the brain as well as MRI of the brain dated 07/28/2017, 07/27/2017 and 07/25/2017 respectively. TECHNIQUE: Multiplanar' multisequence MR images of the brain were obtained with and without intravenous contrast enhancement. 13 cc of Omniscan injected for this examination. FINDINGS: HEMORRHAGE: The at current study re- demonstrates an elliptical shaped hemorrhage within the left centrum semiovale which exhibits various stages of breakdown and small fluid level in the at anterior nondependent portion of the hematoma likely representing some less dense as serum atop more dense packed red cells. The hemorrhage is surrounded by a relatively wide margin of vasogenic white matter edema. No definitive evidence of enhancement seen within or about the hematoma to suggest underlying lesion. The hematoma and its attendant surrounding edema exert surrounding mass effect with overlying sulcal effacement and mild compression/ inferior displacement of the left lateral ventricle. . Re- demonstrated is a elliptical shaped enhancing mass in the right posterior temporoparietal region which appears to be dural-based measuring approximately 15 mm x 12 mm. . This probably represents a small incidental meningioma. The possibility of a atypical primary tumor or dural-based metastasis would be less likely given the appearance and absence of edema significant surrounding edema which would be expected in a metastatic lesion. Correlation with patient's history suggested and a follow-up MRI with contrast recommended to assess stability There is a faint nonenhancing area of increased T2 signal seen in the left frontal white matter of uncertain etiology. This lesion does not enhance and could represent some nonspecific gliosis. . Small rounded well-circumscribed nonenhancing focus of CSF like signal within the right thalamus that may represent a dilated perivascular space however the possibility of a small benign neuroglial cyst small not excluded. DWI: No evidence of an acute or early subacute infarction. BRAIN PARENCHYMA: Ventricular and sulcal size are within range of normal, not withstanding the aforementioned mass-effect. ENHANCEMENT: Hydrocephalus as above. VENTRICLES: No obstructive hydrocephalus. CRANIUM: Unremarkable. ORBITS: Grossly unremarkable. PARANASAL SINUSES/MASTOIDS: Re- demonstrated is under pneumatization of the frontal sinus the remaining visualized paranasal sinuses. No fluid levels seen to suggest acute sinusitis. Minor mucosal thickening left maxillary antrum. VASCULAR SYSTEM: Visualized major vascular flow voids at skull base are patent. OTHER FINDINGS: None . IMPRESSION: Re- demonstrated is a relatively large elliptical shaped hematoma exhibiting various stages of evolution located in the left centrum semiovale with surrounding edema and mass effect. Re- demonstrated is a presumed incidental small meningioma small meningioma right posterior temporoparietal watershed zone. . Recommend repeat pre and post-contrast MRI of the brain in 2 months to assure stability. Small focal area of increased T2 signal left frontal lobe white matter nonspecific.
--- NOTE | 2017-07-29 17:22 | CP.PCM.PN ---
Subjective - Date & Time of Evaluation Date of Evaluation: 07/29/17 Time of Evaluation: 17:22 - Subjective Subjective: CONTINUED SCHULTE AND LEFT SIDED WEAKNESS. CONTINUED BRADYCARDIA WHILE ASLEEP. Objective - Vital Signs/Intake and Output Vital Signs (last 24 hours): Temp Pulse Resp BP Pulse Ox 98.6 F 88 21 104/81 100 07/29/17 16:00 07/29/17 16:00 07/29/17 16:00 07/29/17 16:00 07/29/17 14:00 - Medications Medications: Current Medications Acetaminophen (Tylenol 325mg Tab) 650 mg PO Q6 PRN PRN Reason: Headache Last Admin: 07/29/17 16:55 Dose: 650 mg Dexamethasone (Decadron Inj) 10 mg IVP Q8 [facility] Last Admin: 07/29/17 16:44 Dose: 10 mg Famotidine (Pepcid) 20 mg PO BID [facility] Last Admin: 07/29/17 16:46 Dose: Not Given Levetiracetam 500 mg/ Sodium (Chloride) 105 mls @ 210 mls/hr IVPB Q12 [facility] Last Admin: 07/29/17 09:34 Dose: 210 mls/hr Nicotine (Nicoderm Cq) 1 patch TD DAILY [facility] Last Admin: 07/29/17 09:43 Dose: Not Given Nitroglycerin (Nitrostat Sl Tab) 0.4 mg SL Q5M PRN PRN Reason: CHEST, ANGINAL DISCOMFORT Last Admin: 07/25/17 08:53 Dose: 0.4 mg Oxycodone/Acetaminophen (Percocet 5/325 Mg Tab) 2 tab PO Q6 PRN PRN Reason: Headache Stop: 07/29/17 19:52 Last Admin: 07/27/17 21:09 Dose: 2 tab - Labs Labs: 07/29/17 04:30 07/29/17 04:30 PT 11.7 Seconds (9.8-13.1) 07/25/17 01:13 INR 1.1 (0.9-1.2) 07/25/17 01:13 APTT 37.0 Seconds (25.6-37.1) 07/25/17 01:13 - Constitutional Appears: Well - Head Exam Head Exam: ATRAUMATIC, NORMAL INSPECTION, NORMOCEPHALIC - Eye Exam Eye Exam: EOMI, Normal appearance, PERRL. absent: Conjunctival injection, Nystagmus, Periorbital swelling, Periorbital tenderness, Scleral icterus Pupil Exam: NORMAL ACCOMODATION, PERRL - ENT Exam ENT Exam: Mucous Membranes Moist, Normal Exam. absent: Mucous Membranes Dry, Normal External Ear Exam, Normal Oropharynx, TM's Normal Bilaterally - Neck Exam Neck Exam: Full ROM, Normal Inspection. absent: Lymphadenopathy, Meningismus, Tenderness, Thyromegaly - Respiratory Exam Respiratory Exam: Clear to Ausculation Bilateral, NORMAL BREATHING PATTERN. absent: Accessory Muscle Use, Chest Wall Tenderness, Decreased Breath Sounds, Prolonged Expiratory Phase, Rales, Rhonchi, Wheezes, Respiratory Distress, Stridor - Cardiovascular Exam Cardiovascular Exam: REGULAR RHYTHM, +S1, +S2, Murmur. absent: Bradycardia, Tachycardia, Clicks, Diastolic murmur, Gallop, Irregular Rhythm, JVD, RRR, Rubs , +S4 - GI/Abdominal Exam GI & Abdominal Exam: Soft, Normal Bowel Sounds. absent: Bruit, Distended, Firm , Guarding, Rigid, Tenderness, Diminished Bowel Sounds, Hernia, Hyperactive Bowel Sounds, Hypoactive Bowel Sounds, Organomegaly, Pulsatile Mass, Rebound, Mass - Extremities Exam Extremities Exam: Pedal Edema. absent: Calf Tenderness, Full ROM, Joint Swelling, Normal Capillary Refill, Normal Inspection, Tenderness - Back Exam Back Exam: NORMAL INSPECTION. absent: CVA tenderness (L), CVA tenderness (R), Full ROM, muscle spasm, paraspinal tenderness, rash noted, tenderness, vertebral tenderness - Neurological Exam Neurological Exam: Alert, Awake Neuro motor strength exam: Left Upper Extremity: 0, Right Upper Extremity: 5, Left Lower Extremity: 0, Right Lower Extremity: 5 - Psychiatric Exam Psychiatric exam: Normal Affect, Normal Mood. absent: Agitated, Anxious, Depressed, Flat Affect, Homicidal Ideation, Manic, Suicidal Ideation - Skin Skin Exam: Dry, Intact, Normal Color, Warm. absent: Abrasion, Cyanosis, Diaphoretic, Erythema, Mottled, Pallor, Pallor, Petechiae, Rash, Urticaria, Vesicles Assessment and Plan (1) Bradycardia Status: Acute (2) Intracranial hemorrhage Status: Acute (3) Breast CA Status: Acute (4) Intracranial mass Status: Acute - Assessment and Plan (Free Text) Plan: PT HAS AM ICH WITH EDEMA. SHE DID SUFFER A SYNCOPAL EVENT WITH HEAD TRAUMA. SEVERAL DAYS LATER PRESENTS WITH LEFT SIDED WEAKNESS AND SCHULTE'S WELL COCAINE IN SYSTEM. PTS BP WAS ELEVATED ON PRESENTATION. ETIOLOGY OF CVA MAY BE MULTIFACTORIAL. BP CONTROL RECOMMENDED. AVOID AVN BLOCKERS. CONT NEURO CHECKS.
--- NOTE | 2017-07-29 20:38 | CP.PCM.PN ---
Subjective - Date & Time of Evaluation Date of Evaluation: 07/29/17 Time of Evaluation: 08:00 - Subjective Subjective: Patient seen and examined bedside. sleeping most of the rtime. Comaplins of frontal headahe. unable to move right side ogf her body. Hemodynamically stable, afebrile No acute issues overnight with episodes of bradycardia HR 42 during sleep repeat MR today showed stable ICH ,no obvious mass EEG showed abnormal waves Objective - Vital Signs/Intake and Output Vital Signs (last 24 hours): Temp Pulse Resp BP Pulse Ox 98.6 F 88 21 104/81 100 07/29/17 16:00 07/29/17 16:00 07/29/17 16:00 07/29/17 16:00 07/29/17 14:00 - Medications Medications: Current Medications Acetaminophen (Tylenol 325mg Tab) 650 mg PO Q6 PRN PRN Reason: Headache Last Admin: 07/29/17 16:55 Dose: 650 mg Dexamethasone (Decadron Inj) 10 mg IVP Q8 [facility] Last Admin: 07/29/17 16:44 Dose: 10 mg Famotidine (Pepcid) 20 mg PO BID [facility] Last Admin: 07/29/17 16:46 Dose: Not Given Levetiracetam 500 mg/ Sodium (Chloride) 105 mls @ 210 mls/hr IVPB Q12 [facility] Last Admin: 07/29/17 09:34 Dose: 210 mls/hr Nicotine (Nicoderm Cq) 1 patch TD DAILY [facility] Last Admin: 07/29/17 09:43 Dose: Not Given Nitroglycerin (Nitrostat Sl Tab) 0.4 mg SL Q5M PRN PRN Reason: CHEST, ANGINAL DISCOMFORT Last Admin: 07/25/17 08:53 Dose: 0.4 mg - Labs Labs: 07/29/17 04:30 07/29/17 04:30 PT 11.7 Seconds (9.8-13.1) 07/25/17 01:13 INR 1.1 (0.9-1.2) 07/25/17 01:13 APTT 37.0 Seconds (25.6-37.1) 07/25/17 01:13 - Constitutional Appears: Non-toxic, No Acute Distress - Head Exam Head Exam: ATRAUMATIC, NORMAL INSPECTION, NORMOCEPHALIC - Eye Exam Eye Exam: EOMI, Normal appearance, PERRL Pupil Exam: NORMAL ACCOMODATION - ENT Exam ENT Exam: Mucous Membranes Moist, Normal Exam - Respiratory Exam Respiratory Exam: Clear to Ausculation Bilateral, NORMAL BREATHING PATTERN. absent: Rales, Rhonchi, Wheezes, Respiratory Distress - Cardiovascular Exam Cardiovascular Exam: REGULAR RHYTHM, RRR, +S1, +S2. absent: JVD - GI/Abdominal Exam GI & Abdominal Exam: Soft, Normal Bowel Sounds. absent: Distended, Guarding, Tenderness, Rebound - Rectal Exam Rectal Exam: Deferred - Extremities Exam Extremities Exam: Full ROM, Normal Capillary Refill, Normal Inspection. absent : Calf Tenderness, Pedal Edema - Back Exam Back Exam: NORMAL INSPECTION - Neurological Exam Neurological Exam: Alert, Awake, Oriented x3 Neuro motor strength exam: Left Upper Extremity: 5, Right Upper Extremity: 2/1, Left Lower Extremity: 5, Right Lower Extremity: 2/1 - Psychiatric Exam Psychiatric exam: Normal Affect - Skin Skin Exam: Dry, Normal Color, Warm Assessment and Plan - Assessment and Plan (Free Text) Assessment: 46 years old female with hx of Breast cancer 7 years ago ,s/p Chemotherapy and radiotherapy, came with 2 hours hx of headache associated with weakness of the right upper and lower extremities. Code Stroke called in the ED. NIHSS was [address] head showed left frontal hematoma 3.4x 2.2 cm , surrounding edema and right temporal hyperdense mass 1.6x 1 cm . Minimal midline shift . Patient admitted in ICU , started on Decadron and Mannitol Drip. Neurology and neurosurgery consulted At present hemodynamically stable, still with right side weakness Repeat MRI head today shoed stable ICH , no mass was seen patient was cocaine positive on admission 1. Acute CVA with Intracranial Hemorrhage patient with right sided weakness CT head on admission showed left frontal hematoma 3.4x 2.2 cm , surrounding edema and right temp hyperdense mass 1.6x 1 cm . Minimal midline shift . Initially started on Mannitol and Decadron as per neuro recommendation now off Mannitol Dr Bedoya neuro surgeon ,recommended no surgical intervention at present, repeat MRI in 2 weeks, PT and rehab Repeat MRI brain today showed stable, large elliptical shape hematoma to left centrum ovale with surrounding edema and mass effect.Small hemangioma to right posterior temporoparietal area MRI unable to show any underlying mass. Given that patient was positive for cocaine on admission this could be the etiology for ICH Continue decadron and magnesium for headache EEG showed abnormal waves on Keppra for seizure prevention Continue PT/OT 2. History of breast cancer s/p resection , chemo and radiation 7 years ago follows up with Dr Palm as outpt 3. Seizures, twitching EEG showed abnormal waves continue Keppra 4. CP, ACS ruled out prob musculoskeletal trop x 3 negative EKG with no acute ST- T wave changes , some QTC prolongation Continue cardiac monitoring 5. Leukocytosis , reactive most likely reactive 6. Sinus Bradycardia on tele monitor HR deeps to the 40s when she sleeps Cardiology consult keep pads on 7. Stress ulcer Prophylaxis Pepcid 8.DVT Prophylaxis SCD no anticoag sec to Brain bleed
[2017-07-30 05:31] LABS: MEAN CELL VOLUME 81.7 fl (81.0-99.0); MEAN CORPUSCULAR HEMOGLOBIN 26.1 pg (27.0-31.0); MEAN CORPUSCULAR HGB CONC 31.9 g/dL (33.0-37.0); RBC 4.59 Mil/uL (3.80-5.20); RED CELL DISTRIBUTION WIDTH 18.1 % (11.5-14.5); WHITE BLOOD COUNT 12.9 K/uL (4.8-10.8)
[2017-07-30 05:49] LABS: BLOOD UREA NITROGEN 21 mg/dl (7-17); GFR AFRICAN-AMERICAN > 60; GFR NON-AFRICAN AMERICAN > 60
[2017-07-30] MEDS: levETIRAcetam 500 MG in Sodium Chloride 0.9% 100 ML IVPB SCH ×2 (09:02→21:26)
--- NOTE | 2017-07-30 10:33 | CP.PCM.PN ---
Subjective - Date & Time of Evaluation Date of Evaluation: 07/30/17 Time of Evaluation: 10:26 - Subjective Subjective: Ms. Warren was seen and examined at the bedside in ICU. She is alert, oriented in all spheres. She claims of improved headache and denies any blurred vision, nausea, or vomiting. She further states of feeling lightheadedness with change of position, but lightheadedness improves with gradual cahnge of position. She remains with right side flaccid but sensation remains intact. MRI of the brain showed re-demonstration of a relatively large elliptical shape hematoma exhibiting various stages of evolution located in the left centrum semiovale with surrounding edema and mass effect. The re-demontrated is a presumed incidental small meningioma right posterior tempoparietal watershed zone. There was no untoward events overnight. Objective - Vital Signs/Intake and Output Vital Signs (last 24 hours): Temp Pulse Resp BP Pulse Ox 98.3 F 77 14 103/69 95 07/30/17 08:46 07/30/17 08:46 07/30/17 08:46 07/30/17 08:46 07/30/17 08:46 - Medications Medications: Current Medications Acetaminophen (Tylenol 325mg Tab) 650 mg PO Q6 PRN PRN Reason: Headache Last Admin: 07/30/17 09:05 Dose: 650 mg Dexamethasone (Decadron Inj) 10 mg IVP Q12 [facility] Famotidine (Pepcid) 20 mg PO BID [facility] Last Admin: 07/30/17 09:02 Dose: Not Given Levetiracetam 500 mg/ Sodium (Chloride) 105 mls @ 210 mls/hr IVPB Q12 [facility] Last Admin: 07/30/17 09:02 Dose: 210 mls/hr Magnesium Oxide (Mag-Ox) 400 mg PO BID [facility] Nicotine (Nicoderm Cq) 1 patch TD DAILY [facility] Last Admin: 07/30/17 09:02 Dose: Not Given Nitroglycerin (Nitrostat Sl Tab) 0.4 mg SL Q5M PRN PRN Reason: CHEST, ANGINAL DISCOMFORT Last Admin: 07/25/17 08:53 Dose: 0.4 mg - Labs Labs: 07/30/17 04:20 07/30/17 04:20 PT 11.7 Seconds (9.8-13.1) 07/25/17 01:13 INR 1.1 (0.9-1.2) 07/25/17 01:13 APTT 37.0 Seconds (25.6-37.1) 07/25/17 01:13 - Constitutional Appears: No Acute Distress - Head Exam Head Exam: NORMAL INSPECTION - Neurological Exam Neurological Exam: Alert, Awake Neuro motor strength exam: Left Upper Extremity: 5, Right Upper Extremity: 0, Left Lower Extremity: 5, Right Lower Extremity: 0 Additional comments: Neurological unchanged from previous examination Assessment and Plan (1) Intracranial hemorrhage Assessment & Plan: Case discussed with Dr. Watson, continue all current medical, physical, and occupational therapies. Recommend to titrate down dexamethasone from 10 mg IV Q 8 hours to Q12 hours for 3 days , then decrease is to dexamethasone 5 mg gor 3 days then discontinued. Recommend acute rehab for discharge planning. Status: Acute
[2017-07-30] MEDS: Magnesium Oxide 400 mg Tab UD PO SCH ×2 (10:46→16:26)
--- NOTE | 2017-07-30 16:35 | CP.PCM.PN ---
Subjective - Date & Time of Evaluation Date of Evaluation: 07/30/17 Time of Evaluation: 08:00 - Subjective Subjective: Patient seen and examined bedside. Feeling better and her headache has improved. Still with right side weakness 4/5 , with minimal movement . Slight lightheaded with PT Hemodynamically stable, afebrile In good spirits today No acute issues overnight Objective - Vital Signs/Intake and Output Vital Signs (last 24 hours): Temp Pulse Resp BP Pulse Ox 98.0 F 96 H 19 114/66 95 07/30/17 16:07 07/30/17 16:07 07/30/17 16:07 07/30/17 16:07 07/30/17 12:00 - Medications Medications: Current Medications Acetaminophen (Tylenol 325mg Tab) 650 mg PO Q6 PRN PRN Reason: Headache Last Admin: 07/30/17 09:05 Dose: 650 mg Dexamethasone (Decadron Inj) 10 mg IVP Q12 [facility] Famotidine (Pepcid) 20 mg PO BID [facility] Last Admin: 07/30/17 16:26 Dose: Not Given Levetiracetam 500 mg/ Sodium (Chloride) 105 mls @ 210 mls/hr IVPB Q12 [facility] Last Admin: 07/30/17 09:02 Dose: 210 mls/hr Magnesium Oxide (Mag-Ox) 400 mg PO BID [facility] Last Admin: 07/30/17 16:26 Dose: Not Given Nicotine (Nicoderm Cq) 1 patch TD DAILY [facility] Last Admin: 07/30/17 09:02 Dose: Not Given Nitroglycerin (Nitrostat Sl Tab) 0.4 mg SL Q5M PRN PRN Reason: CHEST, ANGINAL DISCOMFORT Last Admin: 07/25/17 08:53 Dose: 0.4 mg - Labs Labs: 07/30/17 04:20 07/30/17 04:20 PT 11.7 Seconds (9.8-13.1) 07/25/17 01:13 INR 1.1 (0.9-1.2) 07/25/17 01:13 APTT 37.0 Seconds (25.6-37.1) 07/25/17 01:13 - Constitutional Appears: Non-toxic, No Acute Distress - Head Exam Head Exam: ATRAUMATIC, NORMAL INSPECTION, NORMOCEPHALIC - Eye Exam Eye Exam: EOMI, Normal appearance, PERRL Pupil Exam: NORMAL ACCOMODATION - ENT Exam ENT Exam: Mucous Membranes Moist, Normal Exam - Neck Exam Neck Exam: Full ROM, Normal Inspection - Respiratory Exam Respiratory Exam: Clear to Ausculation Bilateral, NORMAL BREATHING PATTERN. absent: Rales, Rhonchi, Wheezes - Cardiovascular Exam Cardiovascular Exam: REGULAR RHYTHM, RRR, +S1, +S2. absent: JVD - GI/Abdominal Exam GI & Abdominal Exam: Soft, Normal Bowel Sounds. absent: Distended, Guarding, Tenderness, Rebound - Rectal Exam Rectal Exam: Deferred - Extremities Exam Extremities Exam: Full ROM, Normal Capillary Refill, Normal Inspection. absent : Calf Tenderness, Pedal Edema - Back Exam Back Exam: NORMAL INSPECTION - Neurological Exam Neurological Exam: Alert, Awake, CN II-XII Intact, Oriented x3 Neuro motor strength exam: Left Upper Extremity: 5, Right Upper Extremity: 2/1, Left Lower Extremity: 5, Right Lower Extremity: 2/1 - Psychiatric Exam Psychiatric exam: Normal Affect, Normal Mood - Skin Skin Exam: Dry, Intact, Normal Color, Warm Assessment and Plan - Assessment and Plan (Free Text) Assessment: 46 years old female with hx of Breast cancer 7 years ago ,s/p Chemotherapy and radiotherapy, came with 2 hours hx of headache associated with weakness of the right upper and lower extremities. Code Stroke called in the ED. NIHSS was [address] head showed left frontal hematoma 3.4x 2.2 cm , surrounding edema and right temporal hyperdense mass 1.6x 1 cm . Minimal midline shift . Patient admitted in ICU , started on Decadron and Mannitol Drip. Neurology and neurosurgery consulted At present hemodynamically stable, still with right side weakness 4/5 , off manitol drip , on decadron tapering dose Repeat MRI head 07/29 showed again a relatively large elliptical shaped hematoma exhibiting various stages of evolution located in the left centrum semiovale with surrounding edema and mass effect. Small meningioma right posterior temporoparietal watershed zone. Patient was cocaine positive on admission Feeling better, headache improving , participating with PT. 1. Acute CVA with Intracranial Hemorrhage patient with right sided weakness CT head on admission showed left frontal hematoma 3.4x 2.2 cm , surrounding edema and right temp hyperdense mass 1.6x 1 cm . Minimal midline shift . Initially started on Mannitol and Decadron as per neuro recommendation now off Mannitol Dr Bedoya neuro surgeon ,recommended no surgical intervention at present, repeat MRI in 2 weeks, PT and rehab Repeat MRI brain 07/29 showed stable, large elliptical shape hematoma to left centrum ovale with surrounding edema and mass effect.Small hemangioma to right posterior temporoparietal area MRI unable to show any underlying mass. Given that patient was positive for cocaine on admission this could be the etiology for ICH Continue decadron and magnesium for headache . Discussed with neuro . Will continue tapering Decadron as followed :10 mg PO Q12 x 3 day than 10 mg po daily x 3 days , than 5 mg po daily for 3 days. Recommended transferring patient to rehab to start PT. EEG showed abnormal waves so will continue Keppra for seizure prevention Continue PT/OT while in hospital 2. History of breast cancer s/p resection , chemo and radiation 7 years ago follows up with Dr Palm as outpt Has had yearly mammography that have been negative so far 3. Seizures, twitching EEG showed abnormal waves continue Keppra 4. CP, ACS ruled out prob musculoskeletal trop x 3 negative patient was cocaine positive EKG with no acute ST- T wave changes , some QTC prolongation Continue cardiac monitoring 5. Leukocytosis , reactive most likely reactive 6. Sinus Bradycardia on tele monitor HR deeps to the 40s when she sleeps Cardiology consulted avoid AV blockers 7. Stress ulcer Prophylaxis Pepcid 8.DVT Prophylaxis SCD no anticoag sec to Brain bleed 9. Urine tox positive for cocaine and opioids
[2017-07-30] MEDS ORDERED: Dexamethasone 10 MG in Dextrose 5% In Water 50 ML IV SCH (21:00)
[2017-07-31 05:38] LABS: HEMOGLOBIN 10.2 g/dL (12.0-16.0); MEAN CELL VOLUME 82.7 fl (81.0-99.0); MEAN CORPUSCULAR HEMOGLOBIN 25.8 pg (27.0-31.0); MEAN CORPUSCULAR HGB CONC 31.2 g/dL (33.0-37.0); RBC 3.97 Mil/uL (3.80-5.20); RED CELL DISTRIBUTION WIDTH 18.3 % (11.5-14.5); WHITE BLOOD COUNT 11.7 K/uL (4.8-10.8)
[2017-07-31 05:45] LABS: BLOOD UREA NITROGEN 22 mg/dl (7-17); CALCIUM 7.4 mg/dL (8.4-10.2); GFR AFRICAN-AMERICAN > 60; GFR NON-AFRICAN AMERICAN > 60
[2017-07-31] MEDS: levETIRAcetam 500 MG in Sodium Chloride 0.9% 100 ML IVPB SCH (09:39)
--- NOTE | 2017-07-31 09:39 | CP.PCM.PN ---
Subjective - Date & Time of Evaluation Date of Evaluation: 07/31/17 Time of Evaluation: 09:36 - Subjective Subjective: Ms. Warren was seen and examined at the bedside. She remains alert, oriented in all spheres. She states of experiencing headache early this morning, Tylenol was given. At present, she denies any headache, dizziness, blurred vision, nausea, or vomiting. She is able to follow simple commands with her right arm and leg remains flaccid. There was no untoward events overnight. Objective - Vital Signs/Intake and Output Vital Signs (last 24 hours): Temp Pulse Resp BP Pulse Ox 98.5 F 60 18 105/68 95 07/31/17 08:00 07/31/17 08:00 07/31/17 08:00 07/31/17 08:00 07/31/17 08:00 - Medications Medications: Current Medications Acetaminophen (Tylenol 325mg Tab) 650 mg PO Q6 PRN PRN Reason: Headache Last Admin: 07/30/17 21:09 Dose: 650 mg Dexamethasone (Decadron Inj) 10 mg IVP Q12 [facility] Last Admin: 07/30/17 21:27 Dose: 10 mg Famotidine (Pepcid) 20 mg PO BID [facility] Last Admin: 07/30/17 16:26 Dose: Not Given Levetiracetam 500 mg/ Sodium (Chloride) 105 mls @ 210 mls/hr IVPB Q12 [facility] Last Admin: 07/30/17 21:26 Dose: 210 mls/hr Magnesium Oxide (Mag-Ox) 400 mg PO BID [facility] Last Admin: 07/30/17 16:26 Dose: Not Given Nicotine (Nicoderm Cq) 1 patch TD DAILY [facility] Last Admin: 07/30/17 09:02 Dose: Not Given Nitroglycerin (Nitrostat Sl Tab) 0.4 mg SL Q5M PRN PRN Reason: CHEST, ANGINAL DISCOMFORT Last Admin: 07/25/17 08:53 Dose: 0.4 mg - Labs Labs: 07/31/17 04:20 07/31/17 04:20 PT 11.7 Seconds (9.8-13.1) 07/25/17 01:13 INR 1.1 (0.9-1.2) 07/25/17 01:13 APTT 37.0 Seconds (25.6-37.1) 07/25/17 01:13 - Constitutional Appears: No Acute Distress - Head Exam Head Exam: NORMAL INSPECTION - Neurological Exam Neurological Exam: Alert, Awake, Oriented x3 Neuro motor strength exam: Left Upper Extremity: 5, Right Upper Extremity: 0, Left Lower Extremity: 5, Right Lower Extremity: 0 Additional comments: Neurological unchanged from previous examination. Assessment and Plan (1) Intracranial hemorrhage Assessment & Plan: Case discussed with Dr. Watson, continue all current medical, physical, and occupational therapies. Titration of dexamethasone was started yesterday. There is no new other recommendations from neurology. Status: Acute
[2017-07-31] MEDS: Magnesium Oxide 400 mg Tab UD PO SCH ×2 (09:43→09:53)
[2017-07-31 16:21] VITALS: BP 115/74; PULSE 75; RESP 19; TEMP 98.4; O2SAT 99
--- NOTE | 2017-07-31 16:24 | CP.PCM.DIS ---
Provider - Provider Date of Admission: 07/25/17 00:18 Attending physician: Henrique Negron Primary care physician: Yefri Palm MD Consults: Dr. Sena/Walter- neurology Dr. Arcadio Bedoya- neurosurgery Time Spent in preparation of Discharge (in minutes): 25 Hospital Course - Lab Results Lab Results: Micro Results 07/25/17 07:54 Nose MRSA Culture (Admit) - Final MRSA NOT DETECTED Most Recent Lab Values WBC 11.7 K/uL (4.8-10.8) H 07/31/17 04:20 RBC 3.97 Mil/uL (3.80-5.20) 07/31/17 04:20 Hgb 10.2 g/dL (12.0-16.0) L 07/31/17 04:20 Hct 32.8 % (34.0-47.0) L 07/31/17 04:20 MCV 82.7 fl (81.0-99.0) 07/31/17 04:20 MCH 25.8 pg (27.0-31.0) L 07/31/17 04:20 MCHC 31.2 g/dL (33.0-37.0) L 07/31/17 04:20 RDW 18.3 % (11.5-14.5) H 07/31/17 04:20 Plt Count 228 K/uL (130-400) 07/31/17 04:20 MPV 8.2 fl (7.2-11.7) 07/25/17 09:30 Neut % (Auto) 87.6 % (50.0-75.0) H 07/25/17 09:30 Lymph % (Auto) 10.0 % (20.0-40.0) L 07/25/17 09:30 [place] % (Auto) 1.3 % (0.0-10.0) 07/25/17 09:30 Eos % (Auto) 0.1 % (0.0-4.0) 07/25/17 09:30 Baso % (Auto) 1.0 % (0.0-2.0) 07/25/17 09:30 Neut # (Auto) 5.9 K/uL (1.8-7.0) 07/25/17 09:30 Lymph # (Auto) 0.7 K/uL (1.0-4.3) L 07/25/17 09:30 [place] # (Auto) 0.1 K/uL (0.0-0.8) 07/25/17 09:30 Eos # (Auto) 0.0 K/uL (0.0-0.7) 07/25/17 09:30 Baso # (Auto) 0.1 K/uL (0.0-0.2) 07/25/17 09:30 Neutrophils % (Manual) 90 % (42-75) H 07/25/17 01:13 Lymphocytes % (Manual) 8 % (20-50) L 07/25/17 01:13 Monocytes % (Manual) 1 % (0-10) 07/25/17 01:13 Eosinophils % (Manual) 1 % (0-7) 07/25/17 01:13 Platelet Estimate Normal (NORMAL) 07/25/17 01:13 Hypochromasia (manual) Slight 07/25/17 01:13 Anisocytosis (manual) Slight 07/25/17 01:13 Ovalocytes Slight 07/25/17 01:13 Acanthocytes (Spur) Slight 07/25/17 01:13 PT 11.7 Seconds (9.8-13.1) 07/25/17 01:13 INR 1.1 (0.9-1.2) 07/25/17 01:13 APTT 37.0 Seconds (25.6-37.1) 07/25/17 01:13 Sodium 139 mmol/l (132-148) 07/31/17 04:20 Potassium 3.6 MMOL/L (3.6-5.0) 07/31/17 04:20 Chloride 102 mmol/L (98-107) 07/31/17 04:20 Carbon Dioxide 25 mmol/L (22-30) 07/31/17 04:20 Anion Gap 16 (10-20) 07/31/17 04:20 BUN 22 mg/dl (7-17) H 07/31/17 04:20 Creatinine 0.5 mg/dl (0.7-1.2) L 07/31/17 04:20 Est GFR ( Amer) > 60 07/31/17 04:20 Est GFR (Non-Af Amer) > 60 07/31/17 04:20 Random Glucose 112 mg/dL (65-105) H 07/31/17 04:20 Hemoglobin A1c 5.7 % (4.2-6.5) 07/25/17 01:13 Calcium 7.4 mg/dL (8.4-10.2) L 07/31/17 04:20 Total Bilirubin 0.4 mg/dl (0.2-1.3) 07/25/17 01:13 AST 22 U/L (14-36) 07/25/17 01:13 ALT 22 U/L (9-52) 07/25/17 01:13 Alkaline Phosphatase 48 U/L (38-126) 07/25/17 01:13 Troponin I < 0.0120 ng/mL (0.00-0.120) 07/25/17 17:16 Total Protein 7.9 G/DL (6.3-8.2) 07/25/17 01:13 Albumin 4.4 g/dL (3.5-5.0) 07/25/17 01:13 Globulin 3.5 gm/dL (2.2-3.9) 07/25/17 01:13 Albumin/Globulin Ratio 1.2 (1.0-2.1) 07/25/17 01:13 Triglycerides 78 mg/DL (0-149) 07/25/17 01:13 Cholesterol 192 mg/dL (0-199) 07/25/17 01:13 LDL Cholesterol Direct 104 mg/dL (0-129) 07/25/17 01:13 HDL Cholesterol 59 MG/DL (30-70) 07/25/17 01:13 Free T4 0.79 ng/dL (0.78-2.19) 07/29/17 04:30 Total T3 0.551 nmol/L (1.49-2.60) L 07/29/17 04:30 TSH 3rd Generation 0.23 mIU/ML (0.46-4.68) L 07/29/17 04:30 Urine Opiates Screen Positive (NEGATIVE) H 07/26/17 20:26 Urine Methadone Screen Negative (NEGATIVE) 07/26/17 20:26 Ur Barbiturates Screen Negative (NEGATIVE) 07/26/17 20:26 Ur Phencyclidine Scrn Negative (NEGATIVE) 07/26/17 20:26 Ur Amphetamines Screen Negative (NEGATIVE) 07/26/17 20:26 U Benzodiazepines Scrn Negative (NEGATIVE) 07/26/17 20:26 U Oth Cocaine Metabols Positive (NEGATIVE) H 07/26/17 20:26 U Cannabinoids Screen Negative (NEGATIVE) 07/26/17 20:26 Blood Type O POSITIVE 07/25/17 01:42 Antibody Screen Negative 07/25/17 01:42 BBK History Checked Patient has bt 07/25/17 01:42 - Hospital Course Hospital Course: 46 years old female with hx of Breast cancer 7 years ago ,s/p Chemotherapy and radiotherapy, admitted on 07/25/2017 after coming to the ED with 2 hours hx of headache associated with weakness of the right upper and lower extremities. Code Stroke called in the ED. NIHSS was [address] head showed left frontal hematoma 3.4x 2.2 cm , surrounding edema and right temporal hyperdense mass 1.6x 1 cm . Minimal midline shift . Patient admitted in ICU , started on Decadron and Mannitol Drip. Neurology and neurosurgery consulted At present hemodynamically stable, still with right side weakness 4/5 , off manitol drip , on decadron tapering dose Repeat MRI head 07/29 showed again a relatively large elliptical shaped hematoma exhibiting various stages of evolution located in the left centrum semiovale with surrounding edema and mass effect. Small meningioma right posterior temporoparietal watershed zone. Patient was cocaine positive on admission Feeling better, headache improving , participating with PT. Today patient is improved and ready for discharge (07/31/2017) Refused Acute rehabillitation but amenable to subacute rehab (closer to her home in [place]) 1. Acute CVA with Intracranial Hemorrhage, likely due to cocaine abuse patient with right sided weakness- FOR DISCHARGE TO SUBACUTE REHAB TODAY 2017 CT head on admission showed left frontal hematoma 3.4x 2.2 cm , surrounding edema and right temp hyperdense mass 1.6x 1 cm . Minimal midline shift . Initially started on Mannitol and Decadron as per neuro recommendation now off Mannitol Dr Bedoya neuro surgeon ,recommended no surgical intervention at present, repeat MRI in 2 weeks, PT and rehab Repeat MRI brain 07/29 showed stable, large elliptical shape hematoma to left centrum ovale with surrounding edema and mass effect.Small hemangioma to right posterior temporoparietal area MRI unable to show any underlying mass. Given that patient was positive for cocaine on admission this could be the etiology for ICH Continue decadron and magnesium for headache . Discussed with neuro . DECADRON DOSE AT REHAB: :10 mg PO Q12 x 3 day than 10 mg po daily x 3 days , than 5 mg po daily for 3 days. EEG showed abnormal waves so will continue Keppra (Changed from IV to PO today ) for seizure prevention Continue PT/OT while in hospital 2. History of breast cancer s/p resection , chemo and radiation 7 years ago follows up with Dr Palm as outpt Has had yearly mammography that have been negative so far 3. Seizures, twitching EEG showed abnormal waves continue Keppra 4. CP, ACS ruled out prob musculoskeletal trop x 3 negative patient was cocaine positive EKG with no acute ST- T wave changes , some QTC prolongation Continue cardiac monitoring 5. Leukocytosis , reactive most likely reactive 6. Sinus Bradycardia on tele monitor HR deeps to the 40s when she sleeps Cardiology consulted recommended for her to avoid AV blockers 7. Stress ulcer Prophylaxis Pepcid 8.DVT Prophylaxis SCD no anticoag sec to Brain bleed 9. Urine tox positive for cocaine and opioids Discharge Exam - Head Exam Head Exam: NORMAL INSPECTION - Additional Findings Additional findings: Physical exam: Constitutional- cooperative, awake, alert Head- NCAT, PERRL Eye- PERRL, EOMI ENT- normal exam, MMM. Neck- normal inspection, supple, no JVD Respiratory- CTAB, no wheezes rales rhonchi Cardiovascular- RRR, +S1, +S2 no MRG GI/Abdominal- normal bowel sounds, soft, no mass, no hsm Skin- warm, dry Extremities Exam- + right sided weakness. normal capillary refill, normal inspection Neurological Exam- alert, awake, oriented Psych- normal mood, normal affect Discharge Plan - Discharge Medications Prescriptions: Dexamethasone [Decadron] 10 mg PO Q12H #11 tab Levetiracetam [Keppra] 500 mg PO Q12H #60 tablet - Follow Up Plan Condition: CRITICAL Disposition: HOME/ ROUTINE Instructions: Stroke Referrals: Yefri Palm MD [Primary Care Provider] -
== END 2017-07-31 17:18 | DRG 533 ==
LOC: H.ER 23:57 → H.ERHOLD 07-25 00:18 → H.ICU/CCU 07-25 04:17 → H.TEL 07-30 17:26 → H.MEDSURG1 07-31 02:06 → H.TEL 07-31 02:08
PROVIDERS: ADMIT Internal Medicine; ATTEND Internal Medicine
DX: I61.1 Nontraumatic intracerebral hemorrhage in hemisphere, cortical (principal); I63.8 Other cerebral infarction; E87.6 Hypokalemia; F14.10 Cocaine abuse, uncomplicated; E16.1 Other hypoglycemia; D18.09 Hemangioma of other sites; L50.0 Allergic urticaria; G81.91 Hemiplegia, unspecified affecting right dominant side; D72.828 Other elevated white blood cell count; R00.1 Bradycardia, unspecified; I10 Essential (primary) hypertension; R29.708 NIHSS score 8; F17.210 Nicotine dependence, cigarettes, uncomplicated; Z85.3 Personal history of malignant neoplasm of breast; Z92.21 Personal history of antineoplastic chemotherapy; Z92.3 Personal history of irradiation

== ENCOUNTER 2017-10-08 19:01 | Observation (INO) | payer OTHER ==
[2017-10-08 19:01] VITALS: BMI 24.7
[2017-10-08] MEDS ORDERED: Sodium Chloride 0.9% 1,000 ML IV STA ×3 (20:15→23:57)
--- NOTE | 2017-10-08 20:19 | ED PDOC ---
HPI: General Adult Time Seen by Provider: 10/08/17 20:03 Chief Complaint (Nursing): Abnormal Labs Chief Complaint (Provider): abnormal labs History Per: Patient History/Exam Limitations: no limitations Onset/Duration Of Symptoms: Days (1 week) Current Symptoms Are (Timing): Still Present Additional Complaint(s): 46 y/o female sent to ED from [facility] for evaluation of low hemoglobin level. Patient states she has had heavy vaginal bleeding x 1 month, with + clots. Patient states prior to this, her LMP was in June (normal), and has not had it until September 14. Patient reports hemoglobin level of 7.0 last week, refused blood transfusion at that time and received 5 days of iron infusion. Patient states hemoglobin level today was 4.0. Patient reports feeling headaches, lightheadedness, and generalized weakness. Denies fever, chest pain, shortness of breath, palpitations, abdominal pain, changes in bowel movements, urinary symptoms. Past Medical History Reviewed: Historical Data, Nursing Documentation, Vital Signs Vital Signs: Last Vital Signs Temp 98.7 F 10/08/17 21:35 Pulse 99 H 10/08/17 21:35 Resp 20 10/08/17 21:35 BP 83/54 L 10/08/17 21:35 Pulse Ox 100 10/08/17 22:47 - Medical History PMH: CVA (ICh), HTN, Malignancy (breast cancer 5 years ago, not active currently ) Denies: Chronic Kidney Disease - Surgical History Other surgeries: lumpectomy - Family History Family History: States: Hypertension - Social History Current smoker - smoking cessation education provided: Yes Alcohol: None Drugs: Denies - Home Medications Home Medications: Ambulatory Orders Medication Instructions Recorded Acetaminophen [Tylenol 325mg tab] 650 mg PO Q6 PRN tab 07/31/17 Famotidine [Pepcid] 20 mg PO BID tab 07/31/17 Levetiracetam [Keppra] 500 mg PO Q12H #60 tablet 07/31/17 Magnesium Oxide [Mag-Ox] 400 mg PO BID tab 07/31/17 DiphenhydrAMINE [Benadryl] 25 mg PO DAILY PRN 10/08/17 Gabapentin [Neurontin] 100 mg PO TID 10/08/17 Mag Hydrox/Aluminum Hyd/Simeth 30 ml PO Q4 PRN 10/08/17 [Mag-Al Plus Xs Suspension] Omeprazole Magnesium [Prilosec Otc] 20 mg PO DAILY 10/08/17 - Allergies Allergies/Adverse Reactions: Allergies Allergy/AdvReac Type Severity Reaction Status Date / Time No Known Allergies Allergy Verified 07/25/17 00:03 Review of Systems ROS Statement: Except As Marked, All Systems Reviewed And Found Negative Genitourinary Female: Positive for: Vaginal Bleeding Neurological: Positive for: Weakness Physical Exam - Reviewed Nursing Documentation Reviewed: Yes Vital Signs Reviewed: Yes - Physical Exam Appears: Positive for: Well, Non-toxic, No Acute Distress Head Exam: Positive for: ATRAUMATIC, NORMAL INSPECTION, NORMOCEPHALIC Skin: Positive for: Pallor Eye Exam: Positive for: Normal appearance ENT: Positive for: Normal ENT Inspection Cardiovascular/Chest: Positive for: Regular Rate, Rhythm Respiratory: Positive for: Normal Breath Sounds Gastrointestinal/Abdominal: Positive for: Bowel Sounds, Soft, Tenderness ( suprapubic discomfort) Back: Positive for: Normal Inspection Extremity: Positive for: Normal ROM Neurologic/Psych: Positive for: Alert, Oriented - Laboratory Results Result Diagrams: 10/08/17 20:47 10/08/17 20:47 - ECG ECG: Positive for: Viewed By Me (reviewed by ED attending) ECG Rhythm: Positive for: Sinus Tachycardia (101bpm) O2 Sat by Pulse Oximetry: 100 - Progress ED Course And Treament: labs, urine, pelvic u/s, IV fluids, ekg, chest xray EXAM: US Pelvis Complete, Transabdominal CLINICAL HISTORY: 46 years old, female; Signs and symptoms; Menstruation abnormalities; Excessive menstruation; With irregular cycle; Additional info: Heavy vaginal bleeding TECHNIQUE: Real-time transabdominal pelvic ultrasound (complete) with image documentation. COMPARISON: US - TRANSVAGINAL 2015-07-18 12:54 FINDINGS: Uterus/cervix: Uterus measures 8.0 x 5.4 x 5.7 cm in size. No myometrial mass. Probable nabothian cyst. Endometrium: 1.0 cm in thickness. Right ovary: 2.2 x 1.4 x 2.2 cm in size. No mass. Normal flow. Left ovary: 2.0 x 1.4 x 1.8 cm in size. No mass. Normal flow. Free fluid: No significant free fluid. Bladder: Unremarkable as visualized. IMPRESSION: 1. No acute findings. 2. Non-acute findings are described above. Consent obtained for blood transfusion. 2units PRBCs ordered Case discussed with Dr. Negron, Hospitalist on-call, for admission. Case discussed with Dr. Knott, Engineering Psychologist on-call for consult Disposition - Clinical Impression Clinical Impression: Anemia, Vaginal bleeding - Patient ED Disposition Is Patient to be Admitted: Yes - Disposition Disposition Time: 23:05 Condition: FAIR
[2017-10-08 20:59] LABS: BASO # 0.1 K/uL (0.0-0.2); EOS # 0.2 K/uL (0.0-0.7); EOS % 2.7 % (0.0-4.0); LYMPH % 27.3 % (20.0-40.0); MEAN CELL VOLUME 92.2 fl (81.0-99.0); MEAN CORPUSCULAR HEMOGLOBIN 30.1 pg (27.0-31.0); MEAN CORPUSCULAR HGB CONC 32.7 g/dL (33.0-37.0); MEAN PLATELET VOLUME 7.8 fl (7.2-11.7); MONO # 0.5 K/uL (0.0-0.8); MONO % 6.6 % (0.0-10.0); NEUT # 4.6 K/uL (1.8-7.0); NEUT % 62.4 % (50.0-75.0); NRBC % 0.2 % (0.0-0.0); RBC 1.47 Mil/uL (3.80-5.20); RED CELL DISTRIBUTION WIDTH 25.2 % (11.5-14.5); WHITE BLOOD COUNT 7.3 K/uL (4.8-10.8)
[2017-10-08 21:02] LABS: HEMOGLOBIN 4.4 g/dL (12.0-16.0)
[2017-10-08 21:33] LABS: ALB/GLOB RATIO 1.2 (1.0-2.1); ALBUMIN 3.2 g/dL (3.5-5.0); ALT/SGPT 28 U/L (9-52); AST/SGOT 35 U/L (14-36); BLOOD UREA NITROGEN 13 mg/dl (7-17); CALCIUM 8.4 mg/dL (8.4-10.2); GFR AFRICAN-AMERICAN > 60; GFR NON-AFRICAN AMERICAN > 60
--- NOTE | 2017-10-08 22:19 | US ---
EXAM: US Pelvis Complete, Transabdominal CLINICAL HISTORY: 46 years old, female; Signs and symptoms; Menstruation abnormalities; Excessive menstruation; With irregular cycle; Additional info: Heavy vaginal bleeding TECHNIQUE: Real-time transabdominal pelvic ultrasound (complete) with image documentation. COMPARISON: US - TRANSVAGINAL 2015-07-18 12:54 FINDINGS: Uterus/cervix: Uterus measures 8.0 x 5.4 x 5.7 cm in size. No myometrial mass. Probable nabothian cyst. Endometrium: 1.0 cm in thickness. Right ovary: 2.2 x 1.4 x 2.2 cm in size. No mass. Normal flow. Left ovary: 2.0 x 1.4 x 1.8 cm in size. No mass. Normal flow. Free fluid: No significant free fluid. Bladder: Unremarkable as visualized. IMPRESSION: 1.No acute findings. 2.Non-acute findings are described above.
--- NOTE | 2017-10-08 23:21 | CP.PCM.HP ---
History of Present Illness - History of Present Illness History of Present Illness: PMD: Steve Palmtor Chief Complaint: Abnormal Labs The patient was seen and examined in the ED HPI: 46 years old female presently residing at the [facility], sent to the ED because of low hemoglobin of 4g/dl. She has hx of Breast cancer s /p Chemotherapy and radiotherapy, last admitted at the [facility] on 07/25/17 and diagnosed with Hemorrhagic CVA with left side weakness. The patient refers heavy vaginal bleed with clots for one month, Headaches, dizziness, fatigued and tiredness with SOB on exertion. Her previous laboratory results showed Hb of 7g/dl and she was given five days of IV Venefer. Here in the ED her Hb is 4.4g/dl. No fever, Chest pain, Hematemesis nor melena. PMH: Breast Cancer Dx 7years ago and treated with Chemotherapy and Radiotherapy , Cholelithiasis; hemorrhagic CVA with left side weakness PSH: Right lumpectomy and and right axillary lymph nodes resection, SH: Light smoker; No illegal drug use; No ETOH use; Live with family FH: States: HTN Allergies: NKDA Present on Admission - Present on Admission Any Indicators Present on Admission: No History of DVT/PE: No History of Uncontrolled Diabetes: No Urinary Catheter: No Decubitus Ulcer Present: No Review of Systems - Constitutional Constitutional: Fatigue, Headache, Weakness. absent: Anorexia, Chills, Fever, Lethargy - EENT Eyes: Requires Corrective Lenses. absent: Floaters, Itchy Eyes, Sees Flashes Ears: absent: Decreased Hearing, Ear Discharge, Ear Pain, Tinnitus Nose/Mouth/Throat: absent: Epistaxis, Nasal Congestion, Nasal Discharge, Sinus Pain, Sinus Pressure - Cardiovascular Cardiovascular: Dyspnea. absent: Chest Pain, Edema - Respiratory Respiratory: Dyspnea. absent: Cough, Wheezing, Stridor - Gastrointestinal Gastrointestinal: absent: Abdominal Pain, Constipation, Diarrhea - Genitourinary Genitourinary: absent: Dysuria, Flank Pain, Urinary Frequency - Reproductive: Female Reproductive:Female: Abnormal Vaginal Bleeding - Menstruation Menstruation: Heavy Menses - Musculoskeletal Musculoskeletal: Muscle Weakness. absent: Arthralgias, Myalgias (left lower extremity weakness) - Integumentary Integumentary: absent: Pruritus, Rash, Skin Ulcer, Sores, Striae, Swelling - Neurological Neurological: Focal Weakness, Weakness. absent: Confusion Additional comments: Left lower extremity weakness - Psychiatric Psychiatric: absent: Anxiety, Depression, Panic Attacks - Endocrine Endocrine: absent: Palpitations, Polydipsia, Polyphagia, Polyuria - Hematologic/Lymphatic Hematologic: absent: Easy Bleeding, Easy Bruising Past Patient History - Past Medical History & Family History Past Medical History?: Yes - Past Social History Smoking Status: Light Smoker < 10 Cigarettes Daily Chewing Tobacco Use: No Cigar Use: No Alcohol: None Drugs: Denies Home Situation {Lives}: [facility] - CARDIAC Hx Hypertension: Yes - PULMONARY Hx Respiratory Disorders: No - NEUROLOGICAL Hx Neurological Disorder: No - HEENT Hx HEENT Problems: No - RENAL Hx Chronic Kidney Disease: No - ENDOCRINE/METABOLIC Hx Endocrine Disorders: No - HEMATOLOGICAL/ONCOLOGICAL Hx Cancer: Yes (right breast) - INTEGUMENTARY Hx Dermatological Problems: No - MUSCULOSKELETAL/RHEUMATOLOGICAL Hx Musculoskeletal Disorders: No - GASTROINTESTINAL Hx Gastrointestinal Disorders: No - GENITOURINARY/GYNECOLOGICAL Hx Genitourinary Disorders: No Other/Comment: RIGHT BREAST CANCER - PSYCHIATRIC Hx Psychophysiologic Disorder: No Hx Substance Use: No - SURGICAL HISTORY Hx Surgeries: Yes Hx Mastectomy: Yes (right) - ANESTHESIA Hx Anesthesia: Yes Hx Anesthesia Reactions: No Hx Malignant Hyperthermia: No Meds Allergies/Adverse Reactions: Allergies Allergy/AdvReac Type Severity Reaction Status Date / Time No Known Allergies Allergy Verified 07/25/17 00:03 Physical Exam - Constitutional Appears: No Acute Distress - Head Exam Head Exam: ATRAUMATIC, NORMAL INSPECTION, NORMOCEPHALIC - Eye Exam Eye Exam: EOMI, Normal appearance Pupil Exam: NORMAL ACCOMODATION, PERRL - ENT Exam ENT Exam: Mucous Membranes Moist, Normal Exam, Normal External Ear Exam - Neck Exam Neck exam: Positive for: Full Rom, Normal Inspection. Negative for: Lymphadenopathy, Tenderness - Respiratory Exam Respiratory Exam: Clear to Auscultation Bilateral. absent: Rales, Rhonchi, Wheezes - Cardiovascular Exam Cardiovascular Exam: REGULAR RHYTHM, RRR, +S1, +S2. absent: Gallop - GI/Abdominal Exam GI & Abdominal Exam: Normal Bowel Sounds, Soft. absent: Mass, Organomegaly, Tenderness - Rectal Exam Rectal Exam: Deferred - Extremities Exam Additional comments: Left lower extremity weakness - Back Exam Back exam: NORMAL INSPECTION. absent: CVA tenderness (L), CVA tenderness (R) - Neurological Exam Neurological exam: Alert, Oriented x3 Additional comments: Right lower extremity weakness withmotor strength 2/5 - Psychiatric Exam Psychiatric exam: Normal Affect, Normal Mood - Skin Skin Exam: Dry, Intact, Pallor, Warm Results - Vital Signs Recent Vital Signs: Last Vital Signs Temp 98.7 F 10/08/17 21:35 Pulse 99 H 10/08/17 21:35 Resp 20 10/08/17 21:35 BP 83/54 L 10/08/17 21:35 Pulse Ox 100 10/08/17 23:05 - Labs Result Diagrams: 10/08/17 20:47 10/08/17 20:47 Labs: Laboratory Results - last 24 hr 10/08/17 10/08/17 10/08/17 20:47 20:47 20:47 WBC 7.3 RBC 1.47 L Hgb 4.4 L* D Hct 13.5 L MCV 92.2 D MCH 30.1 MCHC 32.7 L RDW 25.2 H Plt Count 282 MPV 7.8 Neut % (Auto) 62.4 Lymph % (Auto) 27.3 [place] % (Auto) 6.6 Eos % (Auto) 2.7 Baso % (Auto) 1.0 Neut # (Auto) 4.6 Lymph # (Auto) 2.0 [place] # (Auto) 0.5 Eos # (Auto) 0.2 Baso # (Auto) 0.1 Sodium 137 Potassium 3.9 Chloride 103 Carbon Dioxide 25 Anion Gap 13 BUN 13 Creatinine 0.7 Est GFR ( Amer) > 60 Est GFR (Non-Af Amer) > 60 Random Glucose 89 Calcium 8.4 Total Bilirubin 0.2 AST 35 ALT 28 Alkaline Phosphatase 40 Total Protein 6.0 L Albumin 3.2 L D Globulin 2.8 Albumin/Globulin Ratio 1.2 Blood Type O POSITIVE Antibody Screen Negative BBK History Checked Patient has bt - Impressions Impression: Sinus Tachycardia 101/min - Imaging and Cardiology Chest x-ray Status: Image reviewed by me Additional comment: No infiltrate Pelvic US Additional comment: EXAM: US Pelvis Complete, Transabdominal CLINICAL HISTORY: FINDINGS: Uterus/cervix: Uterus measures 8.0 x 5.4 x 5.7 cm in size. No myometrial mass. Probable nabothian cyst. Endometrium: 1.0 cm in thickness. Right ovary: 2.2 x 1.4 x 2.2 cm in size. No mass. Normal flow. Left ovary: 2.0 x 1.4 x 1.8 cm in size. No mass. Normal flow. Free fluid: No significant free fluid. Bladder: Unremarkable as visualized. IMPRESSION: 1. No acute findings. 2. Non-acute findings are described above. Assessment & Plan - Assessment and Plan (Free Text) Assessment: #. Symptomatic Anemia #. Dysfunctional vaginal Bleeding #. Hx of Hemorrhagic CVA #. Hx of Right Breast Cancer Plan: 46 years old female sent to the ED because of low hemoglobin of 4g/dl. She refers heavy vaginal bleed with clots for one month, Headaches, dizziness, fatigued and tiredness with SOB on exertion. Her previous laboratory results showed Hb of 7g/dl and she was given five days of IV Venefer. Here in the ED her Hb is 4.4g/dl. #. Symptomatic Anemia secondary to the Vaginal bleed.She has already received Intravenous Ferritin - Transfuse two units of PRBC and one unit of FFP - follow Hemoglobin. If Below 7gm/dl repeat transfusion #. Dysfunctional vaginal Bleeding - Consult Gynecology Dr Knott #. Hx of Hemorrhagic CVA - Christina for seizure prevention - OT/PT #. DVT prophylaxis with SCD #. Code Status: Full - Date & Time Date: 10/08/17 Time: 23:21
[2017-10-08 23:27] LABS: SQUAMOUS EPITHIAL < 1 /hpf (0-5); URINE BILIRUBIN NEGATIVE (NEGATIVE); URINE BLOOD LARGE (NEGATIVE); URINE CLARITY CLOUDY (Clear); URINE COLOR YELLOW (YELLOW); URINE GLUCOSE (UA) NEG (Normal); URINE LEUKOCYTE ESTERASE NEG Leu/uL (Negative); URINE PROTEIN 30 mg/dL (NEGATIVE); URINE UROBILINOGEN 0.2-1.0 mg/dL (0.2-1.0)
[2017-10-08] MEDS ORDERED: Alum-Mag Hydrox-Simethicone Susp (30 mL) PO PRN (23:54)
[2017-10-09 01:49] LABS: PARTIAL THROMBOPLASTIN TIME 25.6 Seconds (25.6-37.1); PROTHROMBIN TIME 10.9 Seconds (9.8-13.1)
[2017-10-09 09:15] LABS: HEMOGLOBIN 6.8 g/dL (12.0-16.0); MEAN CELL VOLUME 89.8 fl (81.0-99.0); MEAN CORPUSCULAR HEMOGLOBIN 29.8 pg (27.0-31.0); MEAN CORPUSCULAR HGB CONC 33.2 g/dL (33.0-37.0); RBC 2.28 Mil/uL (3.80-5.20); WHITE BLOOD COUNT 4.9 K/uL (4.8-10.8)
[2017-10-09] MEDS: Magnesium Oxide 400 mg Tab UD PO SCH ×2 (09:51→18:31)
--- NOTE | 2017-10-09 09:52 | CARD ---
APPROVED REPORT EKG Measurement Heart [id number] <Conclusion> Sinus tachycardia Otherwise normal ECG
--- NOTE | 2017-10-09 10:25 | RAD ---
HISTORY: admit COMPARISON: 07/25/2017 FINDINGS: LUNGS: No active pulmonary disease. PLEURA: No significant pleural effusion identified, no pneumothorax apparent. CARDIOVASCULAR: Normal heart size.Left internal jugular access chest port, unchanged. OSSEOUS STRUCTURES: No significant abnormalities. VISUALIZED UPPER ABDOMEN: Normal. OTHER FINDINGS: None. IMPRESSION: No interval pathology noted. No active disease appreciated
--- NOTE | 2017-10-09 17:14 | CP.PCM.DIS ---
Provider - Provider Date of Admission: 10/08/17 23:02 Attending physician: Henrique Negron Primary care physician: Dr. Palm Consults: Ob consult Time Spent in preparation of Discharge (in minutes): 15 Hospital Course - Lab Results Lab Results: Most Recent Lab Values WBC 4.9 K/uL (4.8-10.8) 10/09/17 09:00 RBC 2.28 Mil/uL (3.80-5.20) L 10/09/17 09:00 Hgb 6.8 g/dL (12.0-16.0) L D 10/09/17 09:00 Hct 20.5 % (34.0-47.0) L 10/09/17 09:00 MCV 89.8 fl (81.0-99.0) D 10/09/17 09:00 MCH 29.8 pg (27.0-31.0) 10/09/17 09:00 MCHC 33.2 g/dL (33.0-37.0) 10/09/17 09:00 RDW 17.0 % (11.5-14.5) H 10/09/17 09:00 Plt Count 231 K/uL (130-400) 10/09/17 09:00 MPV 7.8 fl (7.2-11.7) 10/08/17 20:47 Neut % (Auto) 62.4 % (50.0-75.0) 10/08/17 20:47 Lymph % (Auto) 27.3 % (20.0-40.0) 10/08/17 20:47 [place] % (Auto) 6.6 % (0.0-10.0) 10/08/17 20:47 Eos % (Auto) 2.7 % (0.0-4.0) 10/08/17 20:47 Baso % (Auto) 1.0 % (0.0-2.0) 10/08/17 20:47 Neut # (Auto) 4.6 K/uL (1.8-7.0) 10/08/17 20:47 Lymph # (Auto) 2.0 K/uL (1.0-4.3) 10/08/17 20:47 [place] # (Auto) 0.5 K/uL (0.0-0.8) 10/08/17 20:47 Eos # (Auto) 0.2 K/uL (0.0-0.7) 10/08/17 20:47 Baso # (Auto) 0.1 K/uL (0.0-0.2) 10/08/17 20:47 PT 10.9 Seconds (9.8-13.1) 10/09/17 01:20 INR 1.0 (0.9-1.2) 10/09/17 01:20 APTT 25.6 Seconds (25.6-37.1) 10/09/17 01:20 Sodium 137 mmol/l (132-148) 10/08/17 20:47 Potassium 3.9 MMOL/L (3.6-5.0) 10/08/17 20:47 Chloride 103 mmol/L (98-107) 10/08/17 20:47 Carbon Dioxide 25 mmol/L (22-30) 10/08/17 20:47 Anion Gap 13 (10-20) 10/08/17 20:47 BUN 13 mg/dl (7-17) 10/08/17 20:47 Creatinine 0.7 mg/dl (0.7-1.2) 10/08/17 20:47 Est GFR ( Amer) > 60 10/08/17 20:47 Est GFR (Non-Af Amer) > 60 10/08/17 20:47 Random Glucose 89 mg/dL (65-105) 10/08/17 20:47 Calcium 8.4 mg/dL (8.4-10.2) 10/08/17 20:47 Total Bilirubin 0.2 mg/dl (0.2-1.3) 10/08/17 20:47 AST 35 U/L (14-36) 10/08/17 20:47 ALT 28 U/L (9-52) 10/08/17 20:47 Alkaline Phosphatase 40 U/L (38-126) 10/08/17 20:47 Total Protein 6.0 G/DL (6.3-8.2) L 10/08/17 20:47 Albumin 3.2 g/dL (3.5-5.0) L D 10/08/17 20:47 Globulin 2.8 gm/dL (2.2-3.9) 10/08/17 20:47 Albumin/Globulin Ratio 1.2 (1.0-2.1) 10/08/17 20:47 Urine Color Yellow (YELLOW) 10/08/17 22:49 Urine Clarity Cloudy (Clear) 10/08/17 22:49 Urine pH 7.0 (5.0-8.0) 10/08/17 22:49 Ur Specific [place] 1.016 (1.003-1.030) 10/08/17 22:49 Urine Protein 30 mg/dL (NEGATIVE) 10/08/17 22:49 Urine Glucose (UA) Neg mg/dL (Normal) 10/08/17 22: Urine Ketones Negative mg/dL (NEGATIVE) 10/08/17 22: Urine Blood Large (NEGATIVE) 10/08/17: Urine Nitrate Negative (NEGATIVE) 10/08/17: Urine Bilirubin Negative (NEGATIVE) 10/08/17 22: Urine Urobilinogen 0.2-1.0 mg/dL (0.2-1.0) 10/08/17 22:49 Ur Leukocyte Esterase Neg Mert/uL (Negative) 10/08/17 22:49 Urine RBC (Auto) 751 /hpf (0-3) H 10/08/17 22:49 Urine Microscopic WBC 4 /hpf (0-5) 10/08/17 22:49 Ur Squamous Epith Cells < 1 /hpf (0-5) 10/08/17 22:49 Blood Type O POSITIVE 10/08/17 20:47 Antibody Screen Negative 10/08/17 20:47 Crossmatch See Detail 10/08/17 20:47 BBK History Checked Patient has bt 10/08/17 20:47 - Hospital Course Hospital Course: 46 years old female sent to the ED because of low hemoglobin of 4g/dl. She refers heavy vaginal bleed with clots for one month, Headaches, dizziness, fatigued and tiredness with SOB on exertion. Her previous laboratory results showed Hb of 7g/dl and she was given five days of IV Venefer. Here in the ED her Hb is 4.4g/dl. She was transfused with 2 unit PRBC and Hgb 6.8. feeling well already with no more dizziness. Pelvic US showed no acute pathology . OB consulted and recommended provera 10 mg po daily for 10 days ands follow up [facility] Patient to be transfused total 3 unit PRBC Follow up with OB as out patient. Continue ferrous sulfate supplements PO 1.Symptomatic Anemia secondary to dysfunctional Vaginal bleed She has already received Intravenous Ferritin Transfused 3 units of PRBC and one unit of FFP Started ferrous sulfate PO Pelvic US showed no acute pathology OB consulted and recommended Provera 10 mg po daily for 10 days and follow up as outpatient Will d/c patient to [facility] 2. Hx of Hemorrhagic CVA Keppra for seizure prevention Continue OT/PT at [facility] Discharge Exam - Head Exam Head Exam: ATRAUMATIC, NORMAL INSPECTION, NORMOCEPHALIC - Eye Exam Eye Exam: EOMI, PERRL Pupil Exam: NORMAL ACCOMODATION - ENT Exam ENT Exam: Mucous Membranes Moist, Normal Exam - Neck Exam Neck exam: Full Rom, Normal Inspection - Respiratory Exam Respiratory Exam: Clear to PA & Lateral, NORMAL BREATHING PATTERN. absent: Rales, Rhonchi, Wheezes - Cardiovascular Exam Cardiovascular Exam: REGULAR RHYTHM, RRR, +S1, +S2. absent: JVD - GI/Abdominal Exam GI & Abdominal Exam: Normal Bowel Sounds, Soft. absent: Distended, Guarding, Rebound, Tenderness - Rectal Exam Rectal Exam: Deferred - Extremities Exam Extremities exam: normal capillary refill, normal inspection, pedal pulses present - Back Exam Back exam: NORMAL INSPECTION - Neurological Exam Neurological exam: Alert, CN II-XII Intact, Oriented x3 Additional comments: right foot droop - Psychiatric Exam Psychiatric exam: Normal Affect, Normal Mood - Skin Skin Exam: Dry, Pallor, Warm Discharge Plan - Discharge Medications Prescriptions: Ferrous Sulfate 325 mg PO TID #90 tablet MedroxyPROGESTERone [Provera] 10 mg PO DAILY #10 tab - Follow Up Plan Condition: STABLE Disposition: TRANSF TO SNF Patient education suggested?: Yes Instructions: Heavy Periods (DC) Referrals: Yefri Palm MD [Family Provider] - [facility] [Outside]
--- NOTE | 2017-10-09 18:21 | CP.PCM.CON ---
<Cindi Mota - Last Filed: 10/09/17 18:35> History of Present Illness - History of Present Illness History of Present Illness: OBGYN consult CC: "anemia" HPI: 46 YO Female with sig PMH of breast CA (7 yrs ago, tx with chemotherappy and radiotherapy), hemorrhagic CVA is admitted for symptomatic anemia. Pt states that she has had vaginal bleeding, with large x 1 month, using up to 5 heavy pads a day. Bleeding started suddenly, and no previous hx of abnormal bleeding. Last pap per pt was 1 yr ago and was normal. Pt was last seen with hb of 7 and was transfused with IV venefer, at the time pt refused PRBC. On this admission pt hb was 4.4 and is getting transfused with 2 units of PRBC. Pt states that she is feeling alot better today, no longer feeling fatigue but continues to have vaginal bleeding. No longer passing any large clots but bleeding is less in volume from before admission. PMH: Breast Cancer Dx 7years ago and treated with Chemotherapy and Radiotherapy , Cholelithiasis; hemorrhagic CVA with left side weakness GYNhx: post-menopause PSH: Right lumpectomy and and right axillary lymph nodes resection, SH: Light smoker; No illegal drug use; No ETOH use; Lives in a group home for PT FH: HTN Allergies: NKDA Review of Systems - Constitutional Constitutional: absent: Chills, Fever, Night Sweats - Cardiovascular Cardiovascular: absent: Chest Pain, Palpitations - Respiratory Respiratory: absent: Cough, Dyspnea - Gastrointestinal Gastrointestinal: absent: Abdominal Pain, Bloating - Genitourinary Genitourinary: absent: Difficulty Urinating, Dysuria - Menstruation Menstruation: Abnormal Vaginal Bleeding - Neurological Neurological: absent: Dizziness, Headaches, Weakness Past Patient History - Past Medical History & Family History Past Medical History?: Yes - Past Social History Smoking Status: Light Smoker < 10 Cigarettes Daily Chewing Tobacco Use: No Cigar Use: No Alcohol: None Drugs: Denies Home Situation {Lives}: [facility] - CARDIAC Hx Hypertension: Yes - PULMONARY Hx Respiratory Disorders: No - NEUROLOGICAL Hx Neurological Disorder: No - HEENT Hx HEENT Problems: No - RENAL Hx Chronic Kidney Disease: No - ENDOCRINE/METABOLIC Hx Endocrine Disorders: No - HEMATOLOGICAL/ONCOLOGICAL Hx Cancer: Yes (right breast) - INTEGUMENTARY Hx Dermatological Problems: No - MUSCULOSKELETAL/RHEUMATOLOGICAL Hx Musculoskeletal Disorders: No - GASTROINTESTINAL Hx Gastrointestinal Disorders: No - GENITOURINARY/GYNECOLOGICAL Hx Genitourinary Disorders: No Other/Comment: RIGHT BREAST CANCER - PSYCHIATRIC Hx Psychophysiologic Disorder: No Hx Substance Use: No - SURGICAL HISTORY Hx Surgeries: Yes Hx Mastectomy: Yes (right) - ANESTHESIA Hx Anesthesia: Yes Hx Anesthesia Reactions: No Hx Malignant Hyperthermia: No Meds Home Medications: Home Medication List Medication Instructions Recorded Confirmed Type Ferrous Sulfate 325 mg PO TID #90 tablet 10/09/17 Rx MedroxyPROGESTERone [Provera] 10 mg PO DAILY #10 tab 10/09/17 Rx Allergies/Adverse Reactions: Allergies Allergy/AdvReac Type Severity Reaction Status Date / Time No Known Allergies Allergy Verified 07/25/17 00:03 - Medications Medications: Current Medications Acetaminophen (Tylenol 325mg Tab) 650 mg PO Q6 PRN PRN Reason: Headache Al Hydrox/Mg Hydrox/Simethicone (Maalox Plus 30 Ml) 30 ml PO Q4 PRN PRN Reason: Indigestion Diphenhydramine HCl (Benadryl) 25 mg PO DAILY PRN PRN Reason: Insomnia Last Admin: 10/09/17 02:27 Dose: 25 mg Famotidine (Pepcid) 20 mg PO BID [facility] Last Admin: 10/09/17 09:51 Dose: 20 mg Gabapentin (Neurontin) 100 mg PO TID [facility] Last Admin: 10/09/17 13:28 Dose: 100 mg Levetiracetam (Keppra) 500 mg PO Q12@1145,2345 [facility] Last Admin: 10/09/17 12:05 Dose: 500 mg Magnesium Oxide (Mag-Ox) 400 mg PO BID [facility] Last Admin: 10/09/17 09:51 Dose: 400 mg Physical Exam - Constitutional Appears: No Acute Distress - Head Exam Head Exam: ATRAUMATIC, NORMOCEPHALIC - Eye Exam Eye Exam: EOMI, Normal appearance - ENT Exam ENT Exam: Mucous Membranes Moist, Normal Exam - Respiratory Exam Respiratory Exam: Clear to Auscultation Bilateral, NORMAL BREATHING PATTERN - Cardiovascular Exam Cardiovascular Exam: REGULAR RHYTHM, +S1, +S2 - GI/Abdominal Exam GI & Abdominal Exam: Normal Bowel Sounds, Soft. absent: Guarding, Tenderness - Neurological Exam Neurological exam: Alert, Oriented x3 - Psychiatric Exam Psychiatric exam: Normal Affect, Normal Mood - Skin Skin Exam: Dry, Intact, Normal Color, Warm Results - Vital Signs Recent Vital Signs: Last Vital Signs Temp 98.9 F 10/09/17 16:21 Pulse 98 H 10/09/17 16:21 Resp 16 10/09/17 16:21 BP 100/69 10/09/17 16:21 Pulse Ox 98 10/09/17 16:21 - Labs Result Diagrams: 10/09/17 09:00 10/08/17 20:47 Labs: Laboratory Results - last 24 hr 10/08/17 10/08/17 10/08/17 20:47 20:47 20:47 WBC 7.3 RBC 1.47 L Hgb 4.4 L* D Hct 13.5 L MCV 92.2 D MCH 30.1 MCHC 32.7 L RDW 25.2 H Plt Count 282 MPV 7.8 Neut % (Auto) 62.4 Lymph % (Auto) 27.3 [place] % (Auto) 6.6 Eos % (Auto) 2.7 Baso % (Auto) 1.0 Neut # (Auto) 4.6 Lymph # (Auto) 2.0 [place] # (Auto) 0.5 Eos # (Auto) 0.2 Baso # (Auto) 0.1 PT INR APTT Sodium 137 Potassium 3.9 Chloride 103 Carbon Dioxide 25 Anion Gap 13 BUN 13 Creatinine 0.7 Est GFR ( Amer) > 60 Est GFR (Non-Af Amer) > 60 Random Glucose 89 Calcium 8.4 Total Bilirubin 0.2 AST 35 ALT 28 Alkaline Phosphatase 40 Total Protein 6.0 L Albumin 3.2 L D Globulin 2.8 Albumin/Globulin Ratio 1.2 Urine Color Urine Clarity Urine pH Ur Specific [place] Urine Protein Urine Glucose (UA) Urine Ketones Urine Blood Urine Nitrate Urine Bilirubin Urine Urobilinogen Ur Leukocyte Esterase Urine RBC (Auto) Urine Microscopic WBC Ur Squamous Epith Cells Blood Type O POSITIVE Antibody Screen Negative Crossmatch See Detail BBK History Checked Patient has bt 10/08/17 10/09/17 10/09/17 22:49 01:20 09:00 WBC 4.9 RBC 2.28 L Hgb 6.8 L D Hct 20.5 L MCV 89.8 D MCH 29.8 MCHC 33.2 RDW 17.0 H Plt Count 231 MPV Neut % (Auto) Lymph % (Auto) [place] % (Auto) Eos % (Auto) Baso % (Auto) Neut # (Auto) Lymph # (Auto) [place] # (Auto) Eos # (Auto) Baso # (Auto) PT 10.9 INR 1.0 APTT 25.6 Sodium Potassium Chloride Carbon Dioxide Anion Gap BUN Creatinine Est GFR ( Amer) Est GFR (Non-Af Amer) Random Glucose Calcium Total Bilirubin AST ALT Alkaline Phosphatase Total Protein Albumin Globulin Albumin/Globulin Ratio Urine Color Yellow Urine Clarity Cloudy Urine pH 7.0 Ur Specific [place] 1.016 Urine Protein 30 Urine Glucose (UA) Neg Urine Ketones Negative Urine Blood Large Urine Nitrate Negative Urine Bilirubin Negative Urine Urobilinogen 0.2-1.0 Ur Leukocyte Esterase Neg Urine RBC (Auto) 751 H Urine Microscopic WBC 4 Ur Squamous Epith Cells < 1 Blood Type Antibody Screen Crossmatch BBK History Checked - Imaging and Cardiology Pelvic US Additional comment: EXAM: US Pelvis Complete, Transabdominal CLINICAL HISTORY: FINDINGS: Uterus/cervix: Uterus measures 8.0 x 5.4 x 5.7 cm in size. No myometrial mass. Probable nabothian cyst. Endometrium: 1.0 cm in thickness. Right ovary: 2.2 x 1.4 x 2.2 cm in size. No mass. Normal flow. Left ovary: 2.0 x 1.4 x 1.8 cm in size. No mass. Normal flow. Free fluid: No significant free fluid. Bladder: Unremarkable as visualized. IMPRESSION: 1. No acute findings. 2. Non-acute findings are described above. Assessment & Plan - Assessment and Plan (Free Text) Assessment: Assessment/Plan: 46 YO Female with sig PMH of breast CA, and hemorrhagic CVA is admitted for symptomatic anemia likely 2/2 to dysfunctional uterine bleeding. Symptomatic anemia -likely 2/2 to DUB -Pelvic u/s: normal endometrium thickness; no abnormalities identified. -s/p 3 units of PRBC -hb/hct on admission 4.14/13.5 repeat 6.8/20.5 -pt is asymptomatic, currently stable at this time -recs: outpatient [facility] follow up within 1 week; will likely need an endometrial biopsy in the future Provera 10mg PO daily x 10 days Iron BID Pt discussed with attending, Dr. Meehan Thank you for the consult. <Daljit Meehan - Last Filed: 10/10/17 08:42> Results - Vital Signs Recent Vital Signs: Last Vital Signs Temp 98.7 F 10/09/17 19:45 Pulse 94 H 10/09/17 19:45 Resp 20 10/09/17 19:45 BP 97/63 L 10/09/17 19:45 Pulse Ox 100 10/09/17 19:45 - Labs Result Diagrams: 10/09/17 09:00 10/08/17 20:47 Labs: Laboratory Results - last 24 hr 10/08/17 10/09/17 20:47 09:00 WBC 4.9 RBC 2.28 L Hgb 6.8 L D Hct 20.5 L MCV 89.8 D MCH 29.8 MCHC 33.2 RDW 17.0 H Plt Count 231 Blood Type O POSITIVE Antibody Screen Negative Crossmatch See Detail BBK History Checked Patient has bt Assessment & Plan - Assessment and Plan (Free Text) Plan: I saw and examined patient in consultation. Patient reports bleeding has continued but has actually decreased in amount. Patient without complaints at this time. Discussed with patient options of treatment for bleeding. Recommend patient to have endometrial biopsy done as outpatient. Plan to treat patient with Provera 10 mg daily for 10 days to help temporize bleeding. Plan discussed with patient and all patient questions answered. Shefali - Date & Time Date: 10/10/17 Time: 08:42
[2017-10-09 19:46] VITALS: BP 97/63; PULSE 94; RESP 20; TEMP 98.7; O2SAT 100
== END 2017-10-09 21:18 ==
LOC: H.ER 19:01 → H.ERHOLD 23:02 → INTOOBSV 23:02 → H.TEL 10-09 02:33
PROVIDERS: ADMIT Internal Medicine; ATTEND Internal Medicine
DX: D64.9 Anemia, unspecified (principal); N93.8 Other specified abnormal uterine and vaginal bleeding; Z85.3 Personal history of malignant neoplasm of breast; I10 Essential (primary) hypertension; Z92.21 Personal history of antineoplastic chemotherapy; F17.200 Nicotine dependence, unspecified, uncomplicated; I69.354 Hemiplegia and hemiparesis following cerebral infarction affecting left non-dominant side
CPT/HCPCS: 36430; 71045; 76856; 80053; 81003; 81025; 85025; 85027; 85610; 85730; 86850; 86900; 86920; 93005; G0378; J7040; P9051